=== PATIENT | male | born 1980 | race Caucasian/White ===

== ENCOUNTER 2021-01-13 17:55 | Emergency (ER) | payer OTHER, SELFPAY ==
--- NOTE | ~2021-01-13 | XR_ITS ---
EXAMINATION: XR chest 1V portable INDICATION: Chest pain TECHNIQUE: Portable AP chest at 1917 hours COMPARISON: None available FINDINGS: The lungs are free of acute opacities. There is no pleural effusion or pneumothorax. The ca rdiomediastinal silhouette is normal. The visualized osseous structures are unremarkable. IMPRESSION: 1. No acute cardiopulmonary abnormality. Reviewed, dictated and finalized at location A.
[2021-01-13 17:57] VITALS: BP 147/95; PULSE 94; RESP 19; TEMP 36.8; O2SAT 100
--- NOTE | 2021-01-13 18:07 | ECG_ITS ---
Measurements Intervals [place] Rate: 81 P: 39 SC: 149 QRS: -26 QRSD: 88 T: 31 QT: 338 QTc: 395 Interpretive Statements SINUS RHYTHM DELAYED PRECORDIAL R/S TRANSITION BORDERLINE ECG Electronically Signed On 01-18-2021 15:08:45 CDT by Jovi Egan D.O.
--- NOTE | 2021-01-13 19:00 | ED.CHESTPAIN ---
HPI - Chest Pain General Chief Complaint: Chest Pain Stated Complaint: chest pain a couple days Time Seen by Provider: 01/13/21 18:56 Source: patient and RN notes reviewed Mode of arrival: ambulatory Limitations: no limitations History of Present Illness HPI narrative: Patient a 40-year-old male who presents with midsternal chest pain that radiates to the left that has been present since Monday occurs once to 2 times an hour and has intensified since onset patient denies similar occurrence in the past has not taken anything for his symptoms has not been seen for this complaint patient on arrival is in no distress denying any pain patient denies cardiac history and family does note history of family hypertension patient does not take any medications does not smoke. Pain is a sharp aching pain that lasts for minutes and resolves Related Data Home Medications Medication Instructions Recorded Confirmed multivitamin 1 tablet PO DAILY 10/22/20 10/22/20 Allergies Allergy/AdvReac Type Severity Reaction Status Date / Time No Known Allergies Allergy Verified 06/04/20 16:00 peaches AdvReac Mild swelling-hi Uncoded 06/04/20 16:01 ves Review of Systems Review of Systems: All systems reviewed & are unremarkable except as noted in HPI and below PMFSH Family History Family History Grandparent Diabetes mellitus Carcinoma of colon Father Hypertension Mother Hypertension Family history of malignant neoplasm of breast in first degree relative Other Colon polyp Social History Social History Smoking status: Former smoker Second hand tobacco smoke exposure: No Alcohol intake: current Drinks per week: 5 Gender identity (if verbalized by the patient): Male Exam Narrative: Exam Narrative: GENERAL: Well-appearing, obese, and in no acute distress. HEAD: Normocephalic, atraumatic. EYES: PERRLA and EOMI. ENT: Nares clear, no rhinorrhea or epistaxis. Mucous membranes moist. CHEST: Clear to auscultation. No respiratory distress. No wheezes rales or rhonchi HEART: Regular rate and rhythm. No murmur heard. Normal peripheral pulses. ABDOMEN: Soft, nontender, nondistended EXTREMITIES: Normal range of motion. No edema. SKIN: Warm, dry, no rash. NEURO: No focal deficits. Alert and oriented x3. PSYCH: Normal mood and affect. Course Course Emergency Course: Patient evaluated emergency department no distress will be discharged home with outpatient follow-up Vital Signs Vital signs: Vital Signs Temperature 98.3 F 01/13/21 17:57 Pulse Rate 94 01/13/21 17:57 Respiratory Rate 19 01/13/21 17:57 Blood Pressure 147/95 H 01/13/21 17:57 Pulse Oximetry 100 01/13/21 17:57 Temperature 99.1 F 01/13/21 19:27 Pulse Rate 87 01/13/21 19:27 Respiratory Rate 19 01/13/21 19:27 Blood Pressure 153/95 H 01/13/21 19:27 Pulse Oximetry 100 01/13/21 19:27 MDM - Chest Pain MDM Narrative Medical decision making narrative: Patients EKGs and labs are without significant high risk changes. Cardiac risk factors were reviewed. Patient is felt likely to be low risk for ACS and reasonable for further risk stratification testing as an outpatient. Pain was not sudden or maximal in onset without tearing or ripping. quality. No other signs or symptoms to suggest aortic dissection. A low-risk Wells criteria is noted. PE is felt to be unlikely. No pneumonia or URI symptoms were seen on evaluation today. Patient is felt to b reasonable for continued evaluation as an outpatient. Lab Data Result diagrams: 01/13/21 19:58 01/13/21 19:58 Labs: Lab Results 01/13/21 01/13/21 01/13/21 Range/Units 19:58 19:58 19:58 WBC 8.4 (4.5-10.0) K/mm3 RBC 5.25 (4.6-6.20) M/mm3 Hgb 15.3 (14.0-18.0) g/dL Hct 45.8 (42.0-52.0) % MCV 87.2 (80-100) fl MCH 29.1 (2
[2021-01-13 19:22] VITALS: BP 153/95; PULSE 87; RESP 19; TEMP 37.3; O2SAT 100
[2021-01-13 19:27] VITALS: BP 153/95; PULSE 87; RESP 19; TEMP 37.3; O2SAT 100
--- NOTE | 2021-01-13 19:30 | PC.NURSE ---
Pt presents to ED with complaints of chest pain that onset on Monday and has progressively worsened. Pt states pain is a tight pressure that is midsternum. Pain is ratee 3/10 at this time. Pt denies NVD, fever, chills and sob at this time. Pt noted to be alert and oriented x4. Pt noted with hypertension and does not treat with medication. Pt resting on cart in its lowest position with call button and personal items within reach. present at bedside. call button and personal items within reach. Pt advised to press call button for assistance.
[2021-01-13 20:06] LABS: Basophils Percent Auto 0.5 % (0.2-1.2); Eosinophils Absolute Auto 0.1 K/mm3 (0-0.3); Hematocrit 45.8 % (42.0-52.0); Hemoglobin 15.3 g/dL (14.0-18.0); Immature Granulocyte Absolute 0.04 K/mm3 (0.00-0.031); Immature Granulocyte Percent A 0.5 % (0-0.5); Lymphocytes Absolute Auto 2.37 K/mm3 (0.9-3.2); Lymphocytes Percent Auto 28.2 % (18.3-44.2); Mean Corpuscular HGB Conc 33.4 g/dl (32-36); Mean Corpuscular Hemoglobin 29.1 pg (26-34); Mean Corpuscular Volume 87.2 fl (80-100); Mean Platelet Volume 9.9 fl (7.4-10.4); Monocytes Absolute Auto 0.7 K/mm3 (0.1-0.6); Monocytes Percent Auto 7.7 % (2.6-8.5); Neutrophils Absolute Auto 5.2 K/mm3 (1.3-6.7); Neutrophils Percent Auto 62.1 % (45.5-73.1); Platelet Count Result 242 k/mm3 (150-375); Red Blood Count 5.25 M/mm3 (4.6-6.20); Red Cell Distribution Width 12.6 % (11.5-14.5); White Blood Count 8.4 K/mm3 (4.5-10.0)
[2021-01-13 20:15] LABS: INR 0.9; Prothrombin Time 13.1 Seconds (11.1-14.7)
[2021-01-13 20:16] LABS: Partial Thromboplastin Time 30.3 SECONDS (22.3-36.8)
[2021-01-13 20:17] LABS: Alanine Aminotransferase 23 U/L (4-50); Albumin Level 4.5 g/dL (3.5-5.1); Alkaline Phosphatase 75 U/L (38-126); Anion Gap 4 mmol/L (8-16); Aspartate Amino Transferase 28 U/L (17-59); Bilirubin,Total 0.6 mg/dL (0.2-1.3); Blood Urea Nitrogen 13 mg/dL (9-20); Calcium 9.5 mg/dL (8.4-10.2); Carbon Dioxide 31 mmol/L (22-30); Chloride 106 mmol/L (98-107); Estimated CRCL calculation 119 ml/min; Estimated Glomerular Filt Rate > 60; Glucose 87 mg/dL (75-110); Lipase 29 U/L (23-300); Potassium 3.9 mmol/L (3.4-5.0); Sodium 141 mmol/L (137-145)
[2021-01-13 20:29] LABS: Troponin I < 0.012 ng/mL (0.000-0.034)
[2021-01-13 20:45] VITALS: BP 141/94; PULSE 80; RESP 18; O2SAT 100
== END 2021-01-13 20:48 | disposition home or self-care (01) ==
PROVIDERS: Emergency Medicine Emergency Medical Services; Emergency Provider Emergency Medicine; PCP Family Medicine
DX: R07.9 Chest pain, unspecified (principal); Z87.891 Personal history of nicotine dependence
CPT/HCPCS: 36415; 71045; 80053; 83690; 84484; 85025; 85610; 85730; 93005; 99284

== ENCOUNTER 2021-01-29 12:43 | Outpatient (CLI) | payer OTHER, SELFPAY ==
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
== END 2021-01-29 12:44 | disposition home or self-care (01) ==
LOC: ANHIMG 12:46
PROVIDERS: PCP Family Medicine; Visit Provider Physician Assistant
DX: R20.0 Anesthesia of skin (principal)
CPT/HCPCS: 72040

== ENCOUNTER → 2021-02-12 03:44 | Outpatient (CLI) | payer OTHER, SELFPAY ==
[2021-02-12 18:46] LABS: SARS-CoV-2 RNA PCR Negative
== END ==
PROVIDERS: PCP Family Medicine; Visit Provider Internal Medicine Gastroenterology
DX: Z01.812 Encounter for preprocedural laboratory examination (principal); Z20.822 Contact with and (suspected) exposure to COVID-19
CPT/HCPCS: C9803; U0003; U0005

== ENCOUNTER 2021-04-02 19:25 | Observation (INO) | payer OTHER, SELFPAY ==
--- NOTE | ~2021-04-02 | MR_ITS ---
EXAMINATION: MR brain/brain stem wo/w con DATE: 04/03/2021 13:48 INDICATION: Right facial twitching. Left-sided headache. TECHNIQUE: Magnetic resonance imaging (MRI) of the brain and brainstem was performed without and with 20 mL MultiHance intravenous contrast. Sequences included sagittal and axial T1-weighted FLAIR, axia l T1-weighted FSE, axial diffusion-weighted FS EPI, sagittal T2-weighted FLAIR, axial T2*-weighted GR E, axial T2-weighted FLAIR Propeller, and axial T2-weighted Propeller. Postcontrast sequences include d axial, coronal, and sagittal T1-weighted FSE. Apparent diffusion coefficient (ADC) maps were create d. COMPARISON: Head CT 04/02/2021 FINDINGS: There is no intracranial hemorrhage, acute infarction, or abnormal intracranial mass lesion . The ventricles are normal in size. There is a prominent perivascular space in the right parietal de ep white matter. The orbits are normal. The paranasal sinuses are clear. The mastoid air cells are no rmal. IMPRESSION: 1. Normal brain. Reviewed, dictated and finalized at location A. IMPRESSION: 1. Normal brain.
--- NOTE | ~2021-04-02 | CT_ITS ---
EXAMINATION: CT brain wo con DATE: 04/02/2021 21:37 INDICATION: Headache. TECHNIQUE: Computed tomography (CT) of the head was performed without intravenous contrast. The mA wa s adjusted according to patient size. Iterative reconstruction technique was employed. The dose-lengt h product was 605.33 mGy-cm. COMPARISON: None FINDINGS: There is no intracranial hemorrhage, acute infarction, or abnormal intracranial mass lesion . There is a small focus of low-attenuation in the right parietal deep white matter, which may be nor mal as an isolated finding. The ventricles are normal in size. The paranasal sinuses are clear. The m astoid air cells are normal. The orbits are normal. IMPRESSION: 1. Normal aging brain. Reviewed, dictated and finalized at location A. IMPRESSION: 1. Normal aging brain.
--- NOTE | ~2021-04-02 | XR_ITS ---
EXAMINATION: XR chest 1V portable DATE: 04/02/2021 20:08 INDICATION: Headache. Facial twitching and numbness. TECHNIQUE: A single frontal view of the chest was obtained. COMPARISON: Chest single view 01/13/2021 FINDINGS: The chest demonstrates clear lungs without pneumonia, pleural effusion, or pneumothorax. Th e heart size is normal. IMPRESSION: 1. No acute cardiopulmonary disease. Reviewed, dictated and finalized at location A.
--- NOTE | ~2021-04-02 | XR_ITS ---
EXAMINATION: XR lumbar puncture diagnostic DATE: 04/04/2021 16:01 INDICATION: Multiple sclerosis. TECHNIQUE: The procedure including the risks, benefits, and alternatives was discussed with the patie nt. Risks discussed included spinal headache, cerebrospinal fluid leak, bleeding, and infection. The patient understood the risks and agreed to proceed. A timeout was performed to verify the patient' s name, date of , and procedure to be performed. The skin overlying the L2-L3 level was prepped and draped in usual sterile fashion. Subcutaneous 1% lidocaine was used for local anesthesia. A 20 gauge spinal needle was advanced under fluoroscopic guidance. The needle was removed and the entry s ite was cleaned and dressed. There were no immediate complications. Fluoroscopy exposure time was 0. 1 minutes. The total number of images was 1. FINDINGS: Real-time fluoroscopy demonstrates the needle at the L2-L3 level. The opening pressure was 16 cm water (Normal range is variably defined as 6-20 cm water and up to 25 cm water in obese patient s. Pressure >25 cm water is one of the modified Dandy criteria for idiopathic intracranial hypertensi on). 15 mL of clear, colorless fluid was collected in 4 tubes. IMPRESSION: 1. Successful fluoro-guided lumbar puncture. Reviewed, dictated and finalized at location A.
--- NOTE | ~2021-04-02 | MR_ITS ---
EXAMINATION: MR thoracic spine wo/w con DATE: 04/03/2021 13:48 INDICATION: Multiple sclerosis. Right facial twitching. TECHNIQUE: Magnetic resonance imaging (MRI) of the thoracic spine was performed without and with 20 m L MultiHance intravenous contrast. Sequences included sagittal and axial T2-weighted FSE, sagittal ST IR FSE, and sagittal and axial T1-weighted FSE. Postcontrast sequences included sagittal and axial T1 -weighted FS FSE. COMPARISON: None FINDINGS: Bone alignment is normal. Vertebral body heights are normal. Intervertebral disc heights ar e normal. At T9-T10, there is a left central protrusion with mild central canal stenosis. The facet j oints are unremarkable. No neural foraminal stenosis. The spinal cord signal intensity is normal. IMPRESSION: 1. Normal spinal cord. Reviewed, dictated and finalized at location A. IMPRESSION: 1. Normal spinal cord.
--- NOTE | ~2021-04-02 | MR_ITS ---
EXAMINATION: MR cervical spine wo/w con DATE: 04/03/2021 13:48 INDICATION: Multiple sclerosis. Right facial twitching. TECHNIQUE: Magnetic resonance imaging (MRI) of the cervical spine was performed without and with 20 m L MultiHance intravenous contrast. Sequences included sagittal and axial T2-weighted FSE, sagittal ST IR FSE, and sagittal and axial T1-weighted FSE. Postcontrast sequences included sagittal and axial T1 -weighted FS FSE. COMPARISON: None FINDINGS: Bone alignment is normal. Vertebral body heights are normal. Intervertebral disc heights ar e normal. The spinal cord signal intensity is normal. The following disc levels are specifically disc ussed: C2-C3: The disc does not extend beyond the endplate margin. There is no uncovertebral joint osteoarth ritis. There is no facet joint osteoarthritis. There is no neural foraminal stenosis. There is no regino tral canal stenosis. C3-C4: There is a right central protrusion. There is no uncovertebral joint osteoarthritis. There is mild bilateral facet joint osteoarthritis. There is no neural foraminal stenosis. There is mild centr al canal stenosis. C4-C5: There is a left central extrusion. There is no uncovertebral joint osteoarthritis. There is mi ld bilateral facet joint osteoarthritis. There is no neural foraminal stenosis. There is mild central canal stenosis. C5-C6: The disc does not extend beyond the endplate margin. There is no uncovertebral joint osteoarth ritis. There is no facet joint osteoarthritis. There is no neural foraminal stenosis. There is no regino tral canal stenosis. C6-C7: The disc does not extend beyond the endplate margin. There is no uncovertebral joint osteoarth ritis. There is no facet joint osteoarthritis. There is no neural foraminal stenosis. There is no ergino tral canal stenosis. C7-T1: The disc does not extend beyond the endplate margin. There is no uncovertebral joint osteoarth ritis. There is mild right facet joint osteoarthritis. There is no neural foraminal stenosis. There i s no central canal stenosis. IMPRESSION: 1. Normal spinal cord. 2. Mild cervical spondylosis. Reviewed, dictated and finalized at location A.
[2021-04-02 19:28] VITALS: BP 171/97; PULSE 95; RESP 16; TEMP 36.3; O2SAT 100
[2021-04-02 20:07] LABS: Anion Gap 9 mmol/L (8-16); Blood Urea Nitrogen 17 mg/dL (9-20); Calcium 9.4 mg/dL (8.4-10.2); Carbon Dioxide 26 mmol/L (22-30); Chloride 102 mmol/L (98-107); Estimated CRCL calculation 109 ml/min; Estimated Glomerular Filt Rate > 60; Glucose 107 mg/dL (65-110); Potassium 3.4 mmol/L (3.4-5.0); Sodium 137 mmol/L (137-145)
[2021-04-02 20:08] LABS: Basophils Percent Auto 0.5 % (0.2-1.2); Eosinophils Absolute Auto 0.1 K/mm3 (0-0.3); Hematocrit 41.5 % (42.0-52.0); Hemoglobin 14.3 g/dL (14.0-18.0); Immature Granulocyte Absolute 0.04 K/mm3 (0.00-0.031); Immature Granulocyte Percent A 0.5 % (0-0.5); Lymphocytes Absolute Auto 2.39 K/mm3 (0.9-3.2); Lymphocytes Percent Auto 29.4 % (18.3-44.2); Mean Corpuscular HGB Conc 34.5 g/dl (32-36); Mean Corpuscular Hemoglobin 29.4 pg (26-34); Mean Corpuscular Volume 85.4 fl (80-100); Mean Platelet Volume 10.3 fl (7.4-10.4); Monocytes Absolute Auto 0.7 K/mm3 (0.1-0.6); Monocytes Percent Auto 8.7 % (2.6-8.5); Neutrophils Absolute Auto 4.9 K/mm3 (1.3-6.7); Neutrophils Percent Auto 59.9 % (45.5-73.1); Platelet Count Result 252 k/mm3 (150-375); Red Blood Count 4.86 M/mm3 (4.6-6.20); Red Cell Distribution Width 12.8 % (11.5-14.5); White Blood Count 8.1 K/mm3 (4.5-10.0)
[2021-04-02 20:14] LABS: Prothrombin Time 12.7 Seconds (11.1-14.7)
[2021-04-02 20:15] LABS: Partial Thromboplastin Time 27.7 SECONDS (22.3-36.8)
[2021-04-02 20:18] LABS: Troponin I < 0.012 ng/mL (0.000-0.034)
--- NOTE | 2021-04-02 20:28 | PC.NURSE ---
pt reports was seen earlier this week for same symptoms at [facility]. co headache like a band across forehead, elevated bp, and facial tics. no tics/spasms noted. speech clear. a/o x 4. able to ambulate c steady, even, unassisted gait into room without difficulty. request for medical records signed by pt and faxed to [facility], as pt cannot recall what scans/labs obtained during that visit.
[2021-04-02 20:59] VITALS: BP 134/89; PULSE 87; RESP 20; O2SAT 99
--- NOTE | 2021-04-02 21:24 | ED.NEUROSD ---
HPI - Neuro Symptoms/Deficit General Chief Complaint: Neuro Symptoms/Deficit Stated Complaint: , facial twitching Time Seen by Provider: 04/02/21 20:20 Source: patient and RN notes reviewed Mode of arrival: ambulatory Limitations: no limitations History of Present Illness HPI Narrative: This is a 40 year old male with history of hypertension who presents for evaluation of multiple complaints . Patient states he was taken to an outside hospital on Monday because his blood pressure was elevated and his could not wake him. It sounds like his CT did not show anything acute. He reports he has been having intermittent headaches since that ER visit. He also reports feel like he is spaced out sometimes and he is having difficulty concentrating. He has also noticed twitching of his right lower face constantly for 2 days. He denies focal deficits today but he reports he has been having intermittent left side numbness for several months. Related Data Home Medications Medication Instructions Recorded Confirmed multivitamin 1 tablet PO DAILY 10/22/20 04/02/21 Allergies Allergy/AdvReac Type Severity Reaction Status Date / Time peaches AdvReac Mild swelling-hi Uncoded 04/02/21 23:40 ves Review of Systems Review of Systems: All systems reviewed & are unremarkable except as noted in HPI and below Constitutional: Constitutional: Denies chills and Denies fever(s) Respiratory: Respiratory: Denies cough and Denies dyspnea Gastrointestinal: Gastrointestinal: Reports abdominal pain (chronic ) Neurologic: Reports dizziness, Reports headache(s), Reports focal weakness and Reports numbness PMFSH Past Medical History Medical History (Updated 04/03/21 @ 00:40 by Cindy An MD) Hypertension Mixed hyperlipidemia Family History Family History (Updated 04/02/21 @ 23:46 by Sparkle Abreu RN) Grandparent Diabetes mellitus Carcinoma of colon Father Hypertension Baltazar syndrome Mother Family history of malignant neoplasm of breast in first degree relative Hypertension Other Colon polyp Social History Social History Smoking packs per day: 0.5 Smoking cigarettes per day: 10.0 Years smoked: 17 Smoking pack-years: 8.50 Smoking status: Former smoker Tobacco type: cigarettes Second hand tobacco smoke exposure: No Alcohol intake: current Drinks per week: 5 Substance use: never Gender identity (if verbalized by the patient): Male Spiritual care concerns: No Exam Const: General: no acute distress and alert Orientation/consciousness: patient oriented x3 HENMT: Head: normocephalic and atraumatic Ears: TM's normal bilaterally Mouth: Yes Normal oral and palatal mucosa present, Yes lip normal, Yes oropharynx normal and Yes moist mucous membranes Throat: uvula midline Eyes: Pupils: Equal, round and reactive pupils present EOM: EOMs intact bilaterally Chest: Chest palpation & inspection: normal inspection of the chest Resp: Effort & Inspection: normal respiratory effort and no retractions Auscultation: clear to auscultation bilaterally Cardio: Rate: regular rate Rhythm: regular rhythm Heart sounds: no murmurs GI: GI Palp: Yes Soft to palpation, No Tenderness to palpation present (GI) and No Guarding due to palpation present (GI) Auscultation: normal bowel sounds Skin: General skin exam: normal color Rashes: no rashes Neuro: General: patient oriented x3, moves all extremities and no focal motor deficits Cranial nerves: Yes Nystagmus not present Speech: normal speech Gait exam (Neuro): Normal gait present Other: right lower face twitching Psych: Mental Status: mental status grossly normal Affect: normal affect Course Reevaluation(s) Reevaluation #1: I have discussed with patient labs and CT . He is agreeable to observation over night for Date: 04/02/21 Time: 22:24 Consultations Consul
[2021-04-02] MEDS: diazePAM INJ (*CRX) 10 MG/2 ML SYRINGE 5 MG IV PUSH (21:42)
[2021-04-02 21:47] VITALS: BP 144/98; PULSE 81; RESP 20; O2SAT 96
--- NOTE | 2021-04-02 22:26 | ECG_ITS ---
Measurements Intervals [place] Rate: 76 P: 28 MN: 155 QRS: 8 QRSD: 96 T: 9 QT: 359 QTc: 405 Interpretive Statements SINUS RHYTHM BORDERLINE R WAVE PROGRESSION, ANTERIOR LEADS BORDERLINE ST-T WAVE ABNORMALITY- INFERIOR LEADS BASELINE ARTIFACT- I, III, AVL BORDERLINE ECG Electronically Signed On 04-03-2021 8:03:16 CDT by Jovi Egan D.O.
[2021-04-02 22:48] VITALS: BP 152/100; PULSE 78; RESP 20; TEMP 36.9; O2SAT 99
[2021-04-02 22:49] VITALS: O2SAT 99
[2021-04-02 23:30] VITALS: PULSE 78
--- NOTE | 2021-04-02 23:32 | ADMGEN ---
This patient, Sean Tracey, was admitted to Medical Room 340-01. Patient/family oriented to hospital policies and general routines including ID bracelet, bed and alarms, visiting hours, pain management, procedures, bathroom and other care routines, personal items, smoking policy, room service/diet, and visiting hours. Information on how to activate the Rapid Response Team has been discussed. Patient/Family are encouraged to report perceived risks to care and to ask questions if they do not understand what they are told or what they should do.
[2021-04-02 23:47] VITALS: BMI 36.7
[2021-04-03] VITALS (11 sets, daily range): BP systolic 112–136; BP diastolic 60–89; PULSE 61–86; RESP 16–21; TEMP 35.6–36.7; O2SAT 96–100
--- NOTE | 2021-04-03 01:44 | PM.IMHP ---
H&P: HPI History of Present Illness Date/Time: 04/03/21 01:44 Chief Complaint: Facial to twitching. Narrative: This is a 40-year-old male with past medical history significant for hypertension, he presented to the emergency room due to new daily headache and twitching of the left face. Apparently this has been going on now for the last 2-3 days or so initial episode was on Monday while he was sleep pain witnessed an episode of twitching and when he woke up he was confused so they went to an emergency room at another hospital and was discharged after he was treated over there. Now he comes to our emergency room due to persistence of daily headache and left face twitching. Headache is on the left supraorbital area is present throughout the day sometimes with some blurry vision but no aura no nausea no vomiting no diaphoresis no lacrimation no fevers no rigors no chills no nasal obstruction no earache no sore throat no loss of consciousness no dizziness no lightheadedness. 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 His blood pressure has been uncontrolled with systolic oscillating in the 100 and 50s to 180 and diastolic oscillating in the 80s to 110, states that he snores while asleep but he has never been tested for obstructive sleep apnea. Upon presentation to the emergency room patient had a slightly elevation of blood pressure preliminary workup was essentially nonrevealing. He received 5 mg of Valium which make the twitching stop. Patient has been placed in observation for further evaluation and treatment. Review of Systems Review of Systems: Facial twitching on new daily headache Constitutional: Constitutional: Denies chills, Denies daytime sleepiness, Denies fatigue, Denies fever(s), Denies frequent falls, Reports headache(s), Denies lethargy, Denies night sweats, Reports snoring and Denies weakness Eyes: Eyes: Reports blurry vision ENT: Denies dysphagia, Denies vertigo, Denies dizziness, Denies nasal congestion, Denies nasal discharge, Denies nasal obstruction and Denies odynophagia Cardiovascular: Cardiovascular: Denies chest pain, Denies syncope, Denies irregular heart rhythm, Denies claudication, Denies lightheadedness, Denies radiating jaw, neck or arm pain and Denies palpitations Respiratory: Respiratory: Denies chest congestion, Denies cough, Reports snoring and Denies wheezing Gastrointestinal: Gastrointestinal: Denies abdominal pain, Denies diarrhea, Denies nausea and Denies vomiting Genitourinary: Genitourinary: Reports no additional male genitourinary complaints Musculoskeletal: Musculoskeletal: Reports no additional musculoskeletal complaints Integumentary/Breasts: Skin/Breast: Reports system reviewed and no additional complaints, except as docu Neurologic: Reports confusion, Denies vertigo, Denies dizziness and Reports Other visual disturbances Comments: Left face twitching Psychiatric: Psychiatric: Reports no additional psychiatric complaints Endocrine: Endocrine: Reports no additional endocrine complaints Hematologic/Lymphatic: Hematologic/Lymphatic: Reports no additional hematologic/lymphatic complaints Allergic/Immunologic: Allergic/Immunologic: Reports no additional allergic/immunologic complaints [facility] Past Medical History Medical History (Updated 04/03/21 @ 02:27 by aDllin Hull MD) Hypertension Mixed hyperlipidemia Family History Family History (Updated 04/02/21 @ 23:46 by Sparkle Abreu RN) Grandparent Diabetes mellitus Carcinoma of colon Father Hypertension Baltazar syndrome Mother Family history of malignant neoplasm of breast in first degree relative Hypertension Other Colon polyp Social History Social History Smoking packs per day: 0.5 Smoking cigarettes per day: 10.0 Years smoked: 17 Smoking pack-years: 8.50 Smoking status: Former smoker Tobacco t
[2021-04-03] MEDS: PANTOPRAZOLE 40 MG TABLET PO (08:04)
[2021-04-03] MEDS: METOPROLOL SUCCINATE EXT REL 25 MG TABCR BY MOUTH (08:04)
[2021-04-03] MEDS: MULTIVITAMINS THERAPEUTIC TAB (*BKC) 1 TABLET PO (08:04)
--- NOTE | 2021-04-03 11:02 | WPDNEURCNPN ---
Assessment and Plan Additional Plan considering the age of the patient Marguerite the clinical symptomatology we need to rule out the possibility of focal structural lesion such as tumor but again looking at the age of the patient we also need to rule out the possibility of demyelinating disease initially MRI of the brain cervical thoracic spine will be obtained depending on the results will consider spinal tap I have all the blood tests including KATIE Consult date: 04/03/21 Time Seen: 10:30 HPI: Sean Tracey is a 40 year old male admitted to the hospital for the complaints of twitching of the right side of the face of several days duration initially noted during his sleep also when he woke up. Initially reportedly he was confused so they went to another emergency room from there he was subsequently discharged. 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 recently his blood pressure has been uncontrolled and he does snore while his sleep though he has never been tested for obstructive sleep apnea in the emergency room he was noted to have slight elevation of the blood pressure was given 5 mg of Valium which resulted in stoppage of the twitching his past history is only consistent with the hypertension as mentioned above and along with hyperlipidemia, he has a history of smoking pack years 8.5 and being former smoker drinks about 5 drinks per week and has been taking only omeprazole 40 mg daily and metoprolol 25 mg daily, evaluation up until now includes a routine lab normal and also he has had SARS-CoV-2 Chintan negative on February 12, [address] scan of the head and chest x-ray here are negative Review of Systems Review of Systems: All systems reviewed & are unremarkable except as noted in HPI and below PMFSH Past Medical History Medical History Hypertension Mixed hyperlipidemia Family History Family History Grandparent Diabetes mellitus Carcinoma of colon Father Hypertension Baltazar syndrome Mother Family history of malignant neoplasm of breast in first degree relative Hypertension Other Colon polyp Social History Social History Smoking packs per day: 0.5 Smoking cigarettes per day: 10.0 Years smoked: 17 Smoking pack-years: 8.50 Smoking status: Former smoker Tobacco type: cigarettes Second hand tobacco smoke exposure: No Alcohol intake: current Drinks per week: 5 Substance use: never Gender identity (if verbalized by the patient): Male Spiritual care concerns: No Meds Home Medications and Allergies Home Medications Medication Instructions Recorded Confirmed Type multivitamin 1 tablet PO DAILY 10/22/20 04/02/21 History omeprazole 40 mg capsule,delayed 40 mg PO DAILY #30 cap 01/15/21 04/02/21 Rx release metoprolol succinate 25 mg See Rx Instructions .ROUTE 03/16/21 04/02/21 Rx tablet,extended release 24 hr .COMPLEX #30 tablet Allergies Allergy/AdvReac Type Severity Reaction Status Date / Time peaches AdvReac Mild swelling-hi Uncoded 04/02/21 23:40 ves Vital Signs Vital Signs - 24 hr 04/02/21 19:28 04/02/21 20:59 04/02/21 21:47 Temperature 36.3 C L Pulse Rate 95 87 81 Respiratory Rate 16 20 20 Blood Pressure 171/97 H 134/89 144/98 H Pulse Oximetry 100 99 96 04/02/21 22:48 04/02/21 22:49 04/02/21 23:30 Temperature 36.9 C Pulse Rate 78 78 Respiratory Rate 20 Blood Pressure 152/100 H Pulse Oximetry 99 99 04/03/21 00:00 04/03/21 00:08 04/03/21 04:00 Temperature 36.1 C L Pulse Rate 81 76 61 Respiratory Rate 21 H Blood
--- NOTE | 2021-04-03 12:23 | PM.IMPN ---
Progress Note: A&P Assessment and Plan (1) Hemifacial spasm of right side of face: Code(s): G51.31 - Clonic hemifacial spasm, right Status: Acute Assessment and Plan: -Patient have brain cervical and thoracic MRIs. Workup for multiple sclerosis or demyelinating syndromes, ALS. -consulting neurology Dr. Billingsley, I reviewed neurology notes -will follow KATIE -patient may need LP, will discuss with neurology after MRI results -EEG was also ordered -can continue multivitamin, electrolytes within normal limits (2) Uncontrolled hypertension: Code(s): I10 - Essential (primary) hypertension Status: Acute Assessment and Plan: -Continue home medication metoprolol, will consider adding secondary agent if needed (3) Frequent headaches: Code(s): R51.9 - Headache, unspecified Status: Acute Assessment and Plan: -Tylenol as needed -Zofran for nausea Additional Plan Diet: Heart healthy DVT prophylaxis: SCDs, low risk GI prophylaxis: Protonix Code status: Full code Disposition: Observation, pending neurological workup Time Spent With Patient Time with patient: 15 - 25 minutes Subjective Date/time seen: 04/03/21 12:23 patient examined. He still has a right face twitching which is very prominent. Patient has MRI and EEG plan for today. Electrolytes were within normal limits. I am concerned this facial fasciculations may be ALS or multiple sclerosis. We are consulting Neurology for further evaluation. Patient denies fever, chills, nausea, vomiting, diarrhea, chest pain, abdominal pain. He has no family history of neurological problems like this. He has never had any episodes like this or any other abnormal fasciculations throughout his body. He is not having any problems swallowing or eating. No problems with speech. No problems with bladder function. No problems ambulating. Review of Systems Review of Systems: All systems reviewed & are unremarkable except as noted in HPI and below Exam Narrative: - GENERAL: Well-nourished. Pleasant male lying comfortably in bed. - EYES: EOMI. Anicteric. PERRL - HENT: Moist mucous membranes. No scleral icterus. Facial fasciculations right-sided face lower aspect of the cheek around the lateral side of the lips. - LUNGS: Clear to auscultation bilaterally, no wheezing, rhonchi, or rales. - CARDIOVASCULAR: Regular rate and rhythm. No murmur. No JVD. - ABDOMEN: Soft, non-tender and non-distended. No palpable masses. - EXTREMITIES: No edema. Peripheral pulses 2+. Non-tender. - NEUROLOGIC: No focal neurological deficits. CN II-XII grossly intact. Muscle strength 5 in 5 throughout upper and lower extremities. - PSYCHIATRIC: Awake, Alert and oriented x 3. Appropriate mood and affect. - SKIN: No rashes or lesions. Warm. - LYMPH: No cervical lymphadenopathy. Objective Data Vital Signs Vital Signs: Vital Signs - 24 hr 04/02/21 19:28 04/02/21 20:59 04/02/21 21:47 Temperature 36.3 C L Pulse Rate 95 87 81 Respiratory Rate 16 20 20 Blood Pressure 171/97 H 134/89 144/98 H Pulse Oximetry 100 99 96 04/02/21 22:48 04/02/21 22:49 04/02/21 23:30 Temperature 36.9 C Pulse Rate 78 78 Respiratory Rate 20 Blood Pressure 152/100 H Pulse Oximetry 99 99 04/03/21 00:00 04/03/21 00:08 04/03/21 04:00 Temperature 36.1 C L Pulse Rate 81 76 61 Respiratory Rate 21 H Blood Pressure 112/89 Pulse Oximetry 100 04/03/21 06:00 04/03/21 08:00 04/03/21 08:04 Temperature 35.6 C L Pulse Rate 69 86 69 Respiratory Rate 21 H Blood Pressure 136/84 Pulse Oximetry 100 04/03/21 11:15 Temperature Pulse Rate Respiratory Rate Blood Pressure Pulse Oximetry 100 Intake/Output Intake/Output: Intake & Output 03/31/21 04/01/21 04/02/21 04/03/21 23:59 23:59 23:59 23:59 Intake Total 440 Output Total 500 Balance -60 Meds/Results Medications: Active Medications Generic Name Dose Route Start Last Admin
[2021-04-03] MEDS: ACETAMINOPHEN 325 MG TABLET 650 MG PO (13:07)
[2021-04-04] VITALS (12 sets, daily range): BP systolic 124–141; BP diastolic 80–91; PULSE 50–87; RESP 16–20; TEMP 36–37.2; O2SAT 94–100
[2021-04-04] MEDS: PANTOPRAZOLE 40 MG TABLET PO (08:08)
[2021-04-04] MEDS: METOPROLOL SUCCINATE EXT REL 25 MG TABCR BY MOUTH (08:08)
[2021-04-04] MEDS: MULTIVITAMINS THERAPEUTIC TAB (*BKC) 1 TABLET PO (08:08)
--- NOTE | 2021-04-04 12:36 | PM.IMPN ---
Progress Note: A&P Assessment and Plan (1) Hemifacial spasm of right side of face: Code(s): G51.31 - Clonic hemifacial spasm, right Status: Acute Assessment and Plan: - persistent rupali facial spasms fasciculations in right-sided face. - MRI workup negative - Will do lumbar puncture with MS workup - consulted neurology Dr. Billingsley - will start Valium 5 mg t.i.d. p.r.n. (2) Essential hypertension: Code(s): I10 - Essential (primary) hypertension Status: Acute Assessment and Plan: - blood pressure stable, systolic blood pressure 130s - continue home metoprolol (3) Frequent headaches: Code(s): R51.9 - Headache, unspecified Status: Acute Assessment and Plan: - continue Tylenol for headaches, will give Toradol x1 Additional Plan Diet: Regular DVT prophylaxis: No blood thinners for open, low risk GI prophylaxis: Protonix Code status: Full code Disposition: Home Time Spent With Patient Time with patient: 25 - 35 minutes Subjective Date/time seen: 04/04/21 12:36 Patient seen and examined. has no new complaints today. He still has the right facial fasciculations. MRI workup was negative. Will plan LP. p.r.n. Valium for muscle spasm. I discussed case with neurologist. Patient updated. Patient denies fever, chills, nausea, vomiting, diarrhea, chest pain, Abdominal pain, vision changes, dysphagia, dysarthria. Review of Systems Review of Systems: All systems reviewed & are unremarkable except as noted in HPI and below Exam Narrative: - GENERAL: Well-nourished. Pleasant male lying comfortably in bed. - EYES: EOMI. Anicteric. PERRL - HENT: Moist mucous membranes. No scleral icterus. Facial fasciculations right-sided face lower aspect of the cheek around the lateral side of the lips , persistent fasciculations. - LUNGS: Clear to auscultation bilaterally, no wheezing, rhonchi, or rales. - CARDIOVASCULAR: Regular rate and rhythm. No murmur. No JVD. - ABDOMEN: Soft, non-tender and non-distended. No palpable masses. - EXTREMITIES: No edema. Peripheral pulses 2+. Non-tender. - NEUROLOGIC: No focal neurological deficits. CN II-XII grossly intact. Muscle strength 5 in 5 throughout upper and lower extremities. - PSYCHIATRIC: Awake, Alert and oriented x 3. Appropriate mood and affect. - SKIN: No rashes or lesions. Warm. - LYMPH: No cervical lymphadenopathy. Objective Data Vital Signs Vital Signs: Vital Signs - 24 hr 04/03/21 13:59 04/03/21 16:00 04/03/21 20:00 Temperature 36.7 C Pulse Rate 81 77 71 Respiratory Rate 20 Blood Pressure 128/86 Pulse Oximetry 96 04/03/21 20:59 04/04/21 00:00 04/04/21 04:11 Temperature 35.9 C L Pulse Rate 66 66 50 L Respiratory Rate 16 Blood Pressure 114/60 Pulse Oximetry 98 04/04/21 05:23 04/04/21 08:00 04/04/21 08:08 Temperature 36.0 C L Pulse Rate 71 87 68 Respiratory Rate 16 Blood Pressure 133/81 Pulse Oximetry 100 04/04/21 12:00 Temperature Pulse Rate 80 Respiratory Rate Blood Pressure Pulse Oximetry Intake/Output Intake/Output: Intake & Output 04/01/21 04/02/21 04/03/21 04/04/21 23:59 23:59 23:59 23:59 Intake Total 1660 690 Output Total 1000 1000 Balance 660 -310 Meds/Results Medications: Active Medications Generic Name Dose Route Start Last Admin Trade Name Freq PRN Reason Stop Dose Admin Acetaminophen 650 mg 04/03/21 12:32 04/03/21 13:07 Acetaminophen 325 Mg Tablet PO 650 mg Q6H PRN Administration Mild Pain (1-3) or Fever Diazepam 5 mg 04/04/21 12:27 Diazepam (*Crx) 5 Mg Tablet PO TID PRN Spasms Metoprolol Succinate 25 mg 04/03/21 09:00 04/04/21 08:08 Metoprolol Succinate Ext Rel 25 Mg Tabcr BY MOUTH 25 mg DAILY RORO Administration Multivitamins Therapeutic 1 tablet 04/03/21 09:00 04/04/21 08:08 Multivitamins Therapeutic Tab (*Bkc) PO 1 tablet DAILY RORO Administration Ondansetron HCl 4 mg
[2021-04-04] MEDS: KETOROLAC 30 MG/ML VIAL (*BKC) IV PUSH (13:12)
[2021-04-04 13:49] LABS: INR 0.9; Partial Thromboplastin Time 27.2 SECONDS (22.3-36.8); Prothrombin Time 12.5 Seconds (11.1-14.7)
[2021-04-04 16:11] LABS: Glucose CSF 50 mg/dL (40-70); Total Protein CSF 90 mg/dL (12-60)
[2021-04-04 17:12] LABS: Appearance CSF Clear (Clear); CSF source CSF; Color CSF Colorless (Colorless); Nucleated Cell CSF 2 /uL (0-5); Red Blood Cell CSF 2 (0-2)
[2021-04-04 17:37] LABS: Lymphocytes CSF 50 % (40-80)
[2021-04-04 17:39] LABS: Neutrophils CSF 50 % (0-6)
[2021-04-04 17:51] LABS: Anion Gap 9 mmol/L (8-16); Blood Urea Nitrogen 22 mg/dL (9-20); Calcium 9.8 mg/dL (8.4-10.2); Carbon Dioxide 27 mmol/L (22-30); Chloride 103 mmol/L (98-107); Estimated CRCL calculation 94 ml/min; Estimated Glomerular Filt Rate > 60; Glucose 99 mg/dL (65-110); Magnesium 2.2 mg/dL (1.6-2.3); Potassium 4.2 mmol/L (3.4-5.0); Sodium 139 mmol/L (137-145)
--- NOTE | 2021-04-04 18:48 | PM.DS ---
DS: Admitting Diagnosis Admitting Diagnosis Right face fasciculations DS: Discharge Diagnosis Discharge Diagnosis (1) Hemifacial spasm of right side of face: Code(s): G51.31 - Clonic hemifacial spasm, right Status: Acute Assessment and Plan: - MS workup: LP results pending, MRI of brain and spine negative - electrolytes normal, no caffeine abuse, unclear etiology - idiopathic muscle spasms - continue Valium 5 mg t.i.d. p.r.n. (2) Essential hypertension: Code(s): I10 - Essential (primary) hypertension Status: Acute Assessment and Plan: - continue home metoprolol, follow-up with PCP (3) Frequent headaches: Code(s): R51.9 - Headache, unspecified Status: Acute Assessment and Plan: - Tylenol or ibuprofen for headaches p.r.n. DS: Summary Hospital Course Reason for hospitalization: right face fasciculations Hospital Course: Patient is a 40-year-old male with past medical history of hypertension who presents to ED with complaints of headaches and right face twitching. His episodes of twitching appears to get worse with stress such as during his work shift. He denies caffeine abuse, no history of muscle spasms before. He has no family history of neurological conditions. He denies other nonspecific neurological symptoms. He denies urinary incontinence bladder incontinence. No problems with gait. He denies alcohol abuse. No etiologies have been identified for why he has is face twitching. Neurology was consulted and we completed multiple sclerosis workup. MRIs of brain and spine have been negative. Lumbar puncture has been done with results pending. Electrolytes within normal limits. His symptoms seem to improve with Valium, will give 5 mg Valium t.i.d. p.r.n. for muscle twitching. At this point it appears to be idiopathic muscular fasciculations. Patient may follow-up with Dr. Jose Cruz ng for lumbar puncture results. patient also follow-up with his PCP for blood pressure, appears to be stable on his metoprolol with systolic in the 130s. blood pressure was elevated at 1st however it appears to have settled out throughout his admission. He may have a component of white coat hypertension syndrome. Only new medication is Valium, Rx given. Patient will follow-up with PCP and Neurology. Patient's vitals stable, labs stable, patient is stable for discharge. Patient understands and agrees with plan. Status at Discharge Cognitive/behavioral status at discharge: baseline Functional status at discharge: independent ambulation Overall status at discharge: patient is back to baseline Time Spent with Patient Time attestation: Total time spent providing and/or coordinating discharge services:35 Time spent: Greater than 30 minutes Exam Narrative: - GENERAL: Well-nourished. Pleasant male lying comfortably in bed. - EYES: EOMI. Anicteric. PERRL - HENT: Moist mucous membranes. No scleral icterus. Facial fasciculations right-sided face lower aspect of the cheek around the lateral side of the lips , fasciculations appear to have improved on my final assessment. - LUNGS: Clear to auscultation bilaterally, no wheezing, rhonchi, or rales. - CARDIOVASCULAR: Regular rate and rhythm. No murmur. No JVD. - ABDOMEN: Soft, non-tender and non-distended. No palpable masses. - EXTREMITIES: No edema. Peripheral pulses 2+. Non-tender. - NEUROLOGIC: No focal neurological deficits. CN II-XII grossly intact. Muscle strength 5 in 5 throughout upper and lower extremities. - PSYCHIATRIC: Awake, Alert and oriented x 3. Appropriate mood and affect. - SKIN: No rashes or lesions. Warm. - LYMPH: No cervical lymphadenopathy. DS: Data Data Completed and Pending Pending studies at discharge: Pending at discharge 04/04/21 12:30 Cytology [PTH] Routine Labs on day of discharge: Labs from last 24 hours 04/04/21 04/04/21 04/04/21 16:54 16:54 16:54 PT INR APTT Sodium 139 [place]
[2021-04-13 11:36] LABS: Albumin, CSF 44.8 mg/dL (8.0-42.0); Albumin, Serum 4.1 g/dL (3.5-5.2); IgG Index, CSF 0.41 (<0.66); IgG, CSF 4.7 mg/dL (0.8-7.7); Immunoglobulin G, Serum 1050 mg/dL (600-1640); Myelin Basic Protein, CSF <2.0 mcg/L (2.0-4.0); Synthesis Rate IgG, CSF -5.6 mg/24 h (-9.9-3.3)
== END 2021-04-04 19:28 | disposition home or self-care (01) ==
LOC: ANHED 20:24 → ANH3MED 04-03 00:40
PROVIDERS: Emergency Medicine; Psychiatry & Neurology Neurology; Admitting Provider Internal Medicine; Emergency Provider General Practice; PCP Family Medicine; Visit Provider Student in an Organized Health Care Education/Training Program
DX: G51.31 Clonic hemifacial spasm, right (principal); I10 Essential (primary) hypertension; R51.9 Headache, unspecified; E78.2 Mixed hyperlipidemia; Z87.891 Personal history of nicotine dependence; E66.9 Obesity, unspecified; Z68.36 Body mass index [BMI] 36.0-36.9, adult
CPT/HCPCS: 36415; 62328; 70450; 70553; 71045; 72156; 72157; 80048; 82040; 82042; 82525; 82607; 82746; 82784; 82945; 83735; 83873; 83916; 84157; 84443; 84484; 85025; 85610; 85730; 86038; 86617; 88108; 89051; 93005; 96374; 99285; A9270; A9577; G0378; J1885; J3360

== ENCOUNTER 2021-07-15 08:40 | Outpatient (CLI) | payer OTHER, SELFPAY ==
--- NOTE | 2021-07-15 11:00 | NEURO_ITS ---
Impression: # Complains of numbness and twitching of muscles. # Left ulnar neuropathy across the elbow. # Normal nerve conduction study in upper and lower extremities. # Normal needle/EMG exam; No myotonia, fibrillations or neurogenic changes,to consider the possibility of motor neurone disease Nerve Conduction Studies Anti Sensory Summary Table Stim Site NR Peak (ms) P-T Amp (?V) Site1 Site2 Delta-P (ms) Dist (cm) Bhanu (m/s) Left Median Anti Sensory (2-3nd Digit) Wrist 2.7 86.5 Wrist 2-3nd Digit 2.7 14.0 52 Wrist 2.7 75.8 Wrist 2-3nd Digit 2.7 14.0 52 Right Median Anti Sensory (2-3nd Digit) Wrist 3.1 42.6 Wrist 2-3nd Digit 3.1 14.0 45 Wrist 2.9 50.3 Wrist 2-3nd Digit 3.1 14.0 45 Left Radial Anti Sensory (Base 1st Digit) Wrist 2.3 10.3 Wrist Base 1st Digit 2.3 0.0 Right Radial Anti Sensory (Base 1st Digit) Wrist 1.8 18.0 Wrist Base 1st Digit 1.8 0.0 Left Sup Fibular Anti Sensory (Ant Lat Mall) 14 cm 3.2 14.4 14 cm Ant Lat Mall 3.2 16.0 50 Right Sup Fibular Anti Sensory (Ant Lat Mall) 14 cm 3.9 11.5 14 cm Ant Lat Mall 3.9 16.0 41 Left Sural Anti Sensory (Lat Mall) Calf 3.6 4.8 Calf Lat Mall 3.6 16.0 44 Right Sural Anti Sensory (Lat Mall) Calf 3.7 9.8 Calf Lat Mall 3.7 16.0 43 Left Ulnar Anti Sensory (5th Digit) Wrist 2.5 39.6 Wrist 5th Digit 2.5 14.0 56 Right Ulnar Anti Sensory (5th Digit) Wrist 2.3 58.0 Wrist 5th Digit 2.3 14.0 61 Motor Summary Table Stim Site NR Onset (ms) O-P Amp (mV) Site1 Site2 Delta-0 (ms) Dist (cm) Bhanu (m/s) Left Median Motor (Abd Poll Brev) Wrist 3.2 3.5 Elbow Wrist 4.5 27.0 60 Elbow 7.7 1.7 Right Median Motor (Abd Poll Brev) Wrist 3.4 3.7 Elbow Wrist 4.6 28.0 61 Elbow 8.0 3.1 Left Peroneal Motor (Vastus Med) Ankle 5.1 2.8 Popit Ankle 7.0 37.0 53 Popit 12.1 2.0 Right Peroneal Motor (Vastus Med) Ankle 5.0 4.3 Popit Ankle 6.8 36.0 53 Popit 11.8 4.4 Left Tibial Motor (Abd Laird Brev) Ankle 5.4 8.8 Knee Ankle 7.6 37.0 49 Knee 13.0 8.9 Right Tibial Motor (Abd Laird Brev) Ankle 5.1 4.6 Knee Ankle 8.3 39.0 47 Knee 13.4 2.5 Left Ulnar Motor (Abd Dig Minimi) Wrist 2.2 6.5 A Elbow Wrist 5.6 28.0 50 A Elbow 7.8 5.4 B Elbow Wrist 3.8 24.0 63 B Elbow 6.0 5.5 Right Ulnar Motor (Abd Dig Minimi) Wrist 2.7 7.4 A Elbow Wrist 4.7 29.0 62 A Elbow 7.4 6.5 F Wave Studies NR F-Lat (ms) L-R F-Lat (ms) Left Median (Mrkrs) (Abd Poll Brev) 25.78 1.19 Right Median (Mrkrs) (Abd Poll Brev) 26.97 1.19 Left Peroneal (Mrkrs) (EDB) 49.14 0.36 Right Peroneal (Mrkrs) (EDB) 48.78 0.36 Left Tibial (Mrkrs) (Abd Hallucis) 49.81 0.39 Right Tibial (Mrkrs) (Abd Hallucis) 49.42 0.39 Left Ulnar (Mrkrs) (Abd Dig Min) 26.55 0.61 Right Ulnar (Mrkrs) (Abd Dig Min) 25.94 0.61 EMG Side Muscle Nerve Root Ins Act Fibs Amp Dur Recrt Comment Right 1stDorInt Ulnar C8-T1 Nml Nml Nml Nml Nml Right Ext Indicis Radial (Post Int) C7-8 Nml Nml Nml Nml Nml Right Ext Digitorum Radial (Post Int) C7-8 Nml Nml Nml Nml Nml Right BrachioRad Radial C5-6 Nml Nml Nml Nml Nml Right PronatorTeres Median C6-7 Nml Nml Nml Nml Nml Right Abd Po
== END 2021-07-15 08:41 | disposition home or self-care (01) ==
PROVIDERS: PCP Family Medicine; Visit Provider Psychiatry & Neurology Neurology
DX: G56.22 Lesion of ulnar nerve, left upper limb (principal); R20.0 Anesthesia of skin
CPT/HCPCS: 95886; 95913

== ENCOUNTER 2022-04-30 08:17 | Observation (INO) | payer OTHER, SELFPAY ==
[2022-04-30] VITALS (25 sets, daily range): BP systolic 111–159; BP diastolic 62–96; PULSE 54–100; RESP 13–24; TEMP 36.5–36.8; O2SAT 96–100
--- NOTE | ~2022-04-30 | CT_ITS ---
EXAMINATION: CTA BRAIN/CAROTID DATE: 04/30/2022 09:18 INDICATION: Right-sided weakness TECHNIQUE: Computed tomographic angiography (CTA) of the head and neck was performed with 100 mL Omni paque-350 intravenous contrast. Multiplanar reconstructions and maximum intensity projection 3D-recon structions of the carotid arteries and of the intracranial arteries were created by the technologist on a separate workstation. Precontrast CT of the head was also obtained. Automated exposure control and iterative reconstruction technique were employed.The dose-length product was 1696.24 mGy-cm. COMPARISON: Brain MR dated FINDINGS: Carotid arteries: Vascular is normal in caliber with no dissection. There is no evident atherosclerotic plaque with 0% stenosis of the right and left carotid bulbs relative to normal distal artery lumen diameter (NASCET criteria). Visualized cervical soft tissues are unremarkable. Visualized airway and apices of lungs a re clear. Head: Again seen is a prominent perivascular space in the peritrigonal right triple white matter. No acute intracranial hemorrhage, acute infarction or abnormal extra axial fluid collection. Ventricles are no rmal and symmetric. No mass/mass effect. Right cerebellar tonsil which lies 4 mm below level of the f oramen magnum. The orbits, paranasal sinuses and mastoid air cells are normal. Intracranial arteries There is no hemodynamically significant stenosis in the vertebral, basilar and internal carotid arter ies. Vertebral arteries are codominant. There are no aneurysms identified. Both A1 and P1 segments a re patent. Cerebral arterial arborization appears symmetric. No abnormally enhancing brain lesions. IMPRESSION: 1. No evident atherosclerotic plaque with 0% stenosis of the right and left carotid bulbs relative to normal distal artery lumen diameter (NASCET criteria). 2. Normal cerebral CT angiogram with no evident occlusion, hemodynamically significant stenosis or an eurysm. 3. No acute intracranial process. Reviewed, dictated and finalized at location A. IMPRESSION: 1. No evident atherosclerotic plaque with 0% stenosis of the right and left car otid bulbs relative to normal distal artery lumen diameter (NASCET criteria). 2. Normal cerebral CT angiogram with no evident occlusion, hemodynamically sign ificant stenosis or aneurysm. 3. No acute intracranial process.
--- NOTE | ~2022-04-30 | MR_ITS ---
EXAMINATION: MR brain/brain stem wo/w con DATE: 04/30/2022 13:40 INDICATION: Right hemiparesis. TECHNIQUE: Magnetic resonance imaging (MRI) of the brain and brainstem was performed without and with 20 mL MultiHance intravenous contrast. COMPARISON: Brain MRI 04/03/2021, head CT 04/30/2022 FINDINGS: There is no intracranial hemorrhage, acute infarction, or abnormal intracranial mass lesion . The ventricles are normal in size. The mastoid air cells are normal. The paranasal sinuses are danitza r. The orbits are normal. IMPRESSION: 1. Normal brain. Reviewed, dictated and finalized at location A. IMPRESSION: 1. Normal brain.
--- NOTE | ~2022-04-30 | XR_ITS ---
EXAMINATION: XR chest 1V portable DATE: 04/30/2022 08:40 INDICATION: Right-sided weakness. Dull middle chest pain TECHNIQUE: frontal view of the chest was obtained. COMPARISON: Chest radiograph dated 04/02/2021 FINDINGS: The lungs are clear with no focal airspace opacities, pulmonary edema, pleural effusion or pneumothor ax. The cardiomediastinal silhouette is normal. Visualized bones and soft tissues are unremarkable. IMPRESSION: 1. No acute cardiopulmonary disease. Reviewed, dictated and finalized at location A.
--- NOTE | 2022-04-30 08:20 | ECG_ITS ---
Measurements Intervals [place] Rate: 92 P: 57 [place]: 145 QRS: 21 QRSD: 107 T: 20 QT: 340 QTc: 422 Interpretive Statements SINUS RHYTHM DELAYED PRECORDIAL R/S TRANSITION BORDERLINE ST-T WAVE ABNORMALITY- INFERIOR LEADS BASELINE ARTIFACT- I, II, III, AVR, AVL, AVF BORDERLINE ECG COMPARED TO ECG 04/02/2021 22:43:18 NO SIGNIFICANT CHANGES Electronically Signed On 04-30-2022 8:34:33 CDT by Jovi Egan D.O.
--- NOTE | 2022-04-30 08:30 | PC.NURSE ---
Dr. Carlson at bedside to assess pt
--- NOTE | 2022-04-30 08:38 | ED.NEUROSD ---
HPI - Neuro Symptoms/Deficit General Chief Complaint: Neuro Symptoms/Deficit Stated Complaint: int. numbness to right side since last night Time Seen by Provider: 04/30/22 08:26 Source: RN notes reviewed History of Present Illness HPI Narrative: Patient presents emergency department from home for multiple complaints. Patient's main complaint is right-sided numbness he states that starting at 1930 last night he has been having intermittent numbness in his right arm and right leg he states that the episodes will last for approximately 10 to 15 minutes and with these episodes of numbness he also has weakness in his arm and his leg where he has minimal movement in the arm and leg he states that after this time will resolve and he had approximately 3 episodes of this. States that following his initial episode last night he developed a headache over the right side of his head and went behind his right eye patient also states that last night he developed some midsternal chest pain that was described as a pressure that is now resolved. States the pain did not radiate. Patient does state that with his episode of numbness last night his significant other had noticed some slurred speech he states he had similar episodes approximately a year ago for which she was admitted and is followed by Dr. Billingsley at that time he was diagnosed with a pinched nerve in his neck but only been having numbness in his arm at that time he states he does follow with Dr. Billingsley he denies any fevers or chills vision changes shortness of breath abdominal pain or any other symptoms patient denies any chest pain or numbness at this time Related Data Home Medications Medication Instructions Recorded Confirmed multivitamin (Daily Multi-Vitamin 1 tablet PO DAILY 10/22/20 04/01/22 tablet) Allergies Allergy/AdvReac Type Severity Reaction Status Date / Time peach Allergy Severe Swelling/HIVES/SEE Verified 04/01/22 10:55 COMMENT Review of Systems Review of Systems: Gen.: Denies fevers or chills Eyes: Denies eye pain or visual change ENT: Denies congestion Respiratory: Denies shortness of breath or cough CV: Reports chest pain GI: Denies abdominal pain nausea, emesis or diarrhea denies burning, urgency, frequency or hematuria Musculoskeletal: Denies back pain or muscle pain Neuro: See HPI Skin: Denies rash Except as documented, all other systems reviewed and negative PMFSH Past Medical History Medical History Hypertension Mixed hyperlipidemia Family History Family History Grandparent Diabetes mellitus Carcinoma of colon Father Hypertension Baltazar syndrome Mother Family history of malignant neoplasm of breast in first degree relative Hypertension Other Colon polyp Social History Social History Social History: former smoker Smoking packs per day: 0.5 Smoking cigarettes per day: 10.0 Years smoked: 17 Smoking pack-years: 8.50 Smoking status: Former smoker Tobacco type: cigarettes Second hand tobacco smoke exposure: No Alcohol intake: current Drinks per week: 5 Substance use: never Gender identity (if verbalized by the patient): Male Spiritual care concerns: No Exam Narrative: APPEARANCE: No acute distress, nontoxic, resting in bed HEENT: Normocephalic, atraumatic, OMM, TMs clear bilaterally EYES: PERRL, EOMI RESPIRATORY: No respiratory distress, clear to auscultation bilaterally with no rhonchi wheezing or rales CARDIOVASCULAR: RRR s murmur ABDOMINAL: Soft, nontender, nondistended MUSCULOSKELETAL: Moves all extremities. No clubbing, cyanosis or edema. NEURO: A and O ?3, following commands, speech normal, mild right facial droop with attempts to smile only,muscle strength 5 out of 5 bilateral upper and lower extremities SKIN:: Warm, dry. Normal
[2022-04-30 08:48] LABS: Basophils Absolute Auto 0.1 K/mm3 (0.0-0.1); Basophils Percent Auto 0.6 % (0.2-1.2); Eosinophils Absolute Auto 0.1 K/mm3 (0-0.3); Eosinophils Percent Auto 0.8 % (0-4.4); Hemoglobin 13.7 g/dL (14.0-18.0); Immature Granulocyte Absolute 0.05 K/mm3 (0.00-0.031); Immature Granulocyte Percent A 0.5 % (0-0.5); Lymphocytes Absolute Auto 2.73 K/mm3 (0.9-3.2); Lymphocytes Percent Auto 28.4 % (18.3-44.2); Mean Corpuscular HGB Conc 33.4 g/dl (32-36); Mean Corpuscular Hemoglobin 29.1 pg (26-34); Mean Platelet Volume 10.6 fl (7.4-10.4); Monocytes Absolute Auto 0.7 K/mm3 (0.1-0.6); Monocytes Percent Auto 6.9 % (2.6-8.5); Neutrophils Percent Auto 62.8 % (45.5-73.1); Platelet Count Result 263 k/mm3 (150-375); Red Blood Count 4.71 M/mm3 (4.6-6.20); Red Cell Distribution Width 13.2 % (11.5-14.5); White Blood Count 9.6 K/mm3 (4.5-10.0)
[2022-04-30 08:50] LABS: INR 1.2; Prothrombin Time 14.3 Seconds (11.1-14.7)
[2022-04-30 08:52] LABS: Partial Thromboplastin Time 28.5 SECONDS (22.3-36.8)
[2022-04-30 09:00] LABS: Alanine Aminotransferase 32 U/L (6-50); Albumin Level 4.5 g/dL (3.5-5.1); Alkaline Phosphatase 93 U/L (38-126); Anion Gap 11 mmol/L (8-16); Aspartate Amino Transferase 32 U/L (17-59); Bilirubin,Total 0.4 mg/dL (0.2-1.3); Blood Urea Nitrogen 18 mg/dL (9-20); Calcium 9.1 mg/dL (8.4-10.2); Carbon Dioxide 25 mmol/L (22-30); Chloride 105 mmol/L (98-107); Estimated CRCL calculation 105 ml/min; Estimated Glomerular Filt Rate > 60; Glucose 88 mg/dL (65-110); Potassium 3.6 mmol/L (3.4-5.0); Sodium 141 mmol/L (137-145)
[2022-04-30 09:06] LABS: Magnesium 2.2 mg/dL (1.6-2.3)
[2022-04-30 09:09] LABS: Troponin I < 0.012 ng/mL (0.000-0.034)
--- NOTE | 2022-04-30 09:22 | PC.NURSE ---
Patient off unit to CT.
[2022-04-30 09:30] LABS: SARS-CoV-2 RNA PCR Negative
[2022-04-30] MEDS: ASPIRIN 81 MG CHEWABLE TABLET 324 MG PO (10:37)
--- NOTE | 2022-04-30 11:01 | PC.NURSE ---
Patient report given to ALESHIA Ortiz. All questions answered and care of patient transferred.
--- NOTE | 2022-04-30 11:41 | ADMGEN ---
This patient, Sean Tracey, was admitted to IMU Room 212-01 on 04/30/22 at 1130. Patient/family oriented to hospital policies and general routines including ID bracelet, bed and alarms, visiting hours, pain management, procedures, bathroom and other care routines, personal items, smoking policy, room service/diet, and visiting hours. Information on how to activate the Rapid Response Team has been discussed. Patient/Family are encouraged to report perceived risks to care and to ask questions if they do not understand what they are told or what they should do.
--- NOTE | 2022-04-30 13:00 | PM.IMHP ---
H&P: HPI History of Present Illness Date/Time: 04/30/22 13:00 Chief Complaint: Headache, right-sided weakness. Narrative: This is a 41-year-old male with hypertension, hyperlipidemia, GERD, and remote history of peptic ulcers who presented to the emergency department for evaluation of right-sided numbness and a headache. He works overnight at [employer] and while driving to work at about 19:30 last evening he noticed that the right side of his body seemed to be a bit tingly. That passed and he did okay at work for several hours though during the middle of his shift he again started to have paresthesias and numbness of the right side of his body. At that time he also experienced several other symptom including blurry vision in his right eye, dull and nonradiating mid chest discomfort, and a headache behind his right eye. He called his at around 03:00 to tell about his symptoms and she noticed that his speech seemed slurred. The symptoms resolved aside from the headache and he came in for evaluation. Vital signs have been stable since arrival and his blood pressures look well controlled aside from a reading of 159/96 on arrival. His labs thus far have since been unremarkable. EKG showed a normal sinus rhythm with borderline ST T-wave abnormalities in the inferior leads. CTA of the head and neck and chest x-ray were both unremarkable. He has since been admitted to the IMU for closer monitoring and evaluation. Currently he is really only experiencing the right-sided headache, all other systems have resolved. Of note he has ongoing, intermittent numbness and tingling of the left arm and fingers related to what sounds like left ulnar nerve neuropathy. This is unchanged. Review of Systems Review of Systems: Twelve systems were reviewed. No syncope or presyncope. No diplopia, vertigo, focal weakness, facial droop, or dysphagia. He has not had any recurrent chest pain. It is my understanding that he has been set up with a stress test in the next several weeks, however he has not been having exertional chest pain. No palpitations or sensations of racing heart. No pleuritic pain or shortness of breath. He has GERD but that seems to be well controlled on PPI. He has remote history of peptic ulcer disease. No melena or hematochezia. He has had some belching and bloating, however. He does not take NSAIDs. No alcohol or caffeine use. Except as documented, all other systems were reviewed and are negative. [facility] Past Medical History Medical History (Updated 04/30/22 @ 18:51 by Anne Kulkarni PA-C) Gastroesophageal reflux disease Hypertension Mixed hyperlipidemia Peptic ulcer Surgical History Surgical History History of arthroscopy of right shoulder History of colonoscopy with polypectomy Family History Family History Grandparent Diabetes mellitus Carcinoma of colon Father Hypertension Baltazar syndrome Mother Family history of malignant neoplasm of breast in first degree relative Hypertension Other Colon polyp Social History Social History (Updated 04/30/22 @ 18:49 by Anne Kulkarni PA-C) Social History: Surrogate medical decision maker: Shantel Tracey, spouse. Code status: Smoking packs per day: 0.25 Smoking cigarettes per day: 5.0 Years smoked: 2 Smoking pack-years: 0.50 Smoking status: Former smoker Tobacco type: cigarettes Second hand tobacco smoke exposure: No Alcohol intake: current Drinks per week: 4 Substance use: never Additional living arrangements comments: The patient lives with his and 2 children. 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 Spiritual care concerns: No Meds Home Medications and Allergies Home Medications Medication Instructions Recorded Confirmed Type multivitamin (Daily Multi-Vitamin 1 tablet PO DAILY 09/29
[2022-04-30 13:09] LABS: Troponin I < 0.012 ng/mL (0.000-0.034)
--- NOTE | 2022-04-30 13:13 | ECHO_ITS ---
Patient Info Name: Sean Tracey Age: 41 years : 1980 Gender: Male Ht: 67 in Wt: 248 lbs BSA: 2.36 m2 HR: 67 bpm BP: 134 / 87 mmHg Technical Quality: Fair Exam Date: 04/30/2022 2:17 PM Exam Location: [facility] Pulmonary Patient Status: Inpatient Admit Date: 04/30/2022 Staff Ordering Physician: Anne Kulkarni PA-C Medical Education Coordinator: Lucero Hernandez RDCS Attending Provider: Landon Arthur MD Referring Physician: Shad LI; Exam Type: CA echo dop color flow w con Study Info Indications R07.9 - Chest pain, unspecified Complete two-dimensional, color flow and Doppler transthoracic echocardiogram is performed with contrast to opacify the left ventricle and to improve the deliniation of the left ventricle endocardial borders. Contrast/Agitated Saline Contrast/Ag. Saline: Definity Amount: --- ml Summary 1. Left ventricular chamber dimension is normal. 2. Definity contrast administered improved wall motion interpretation. 3. Left ventricular systolic function is normal, estimated at 60-65%. 4. There is mildly increased left ventricular wall thickness. 5. The left ventricular diastolic function is normal. 6. There is mild mitral valve regurgitation. 7. There is mild tricuspid valve regurgitation. 8. No pulmonary hypertension, estimated pulmonary arterial systolic pressure is 22 mmHg. Left Ventricle Definity contrast administered improved wall motion interpretation. Left ventricular chamber dimension is normal. Left ventricular systolic function is normal, estimated at 60-65%. There is mildly increased left ventricular wall thickness. The left ventricular diastolic function is normal. Right Ventricle Right ventricular systolic function is normal and with normal TAPSE 2.2 cm. Right ventricular chamber dimension is normal. Left Atria Left atrial chamber dimension is normal. Right Atria Right atrial chamber dimension is normal. Aortic Valve The aortic valve is trileaflet. There is no aortic valve stenosis. There is no aortic valve regurgitation. Pulmonic Valve There is no pulmonic regurgitation. Mitral Valve There is no mitral valve stenosis. There is mild mitral valve regurgitation. Tricuspid Valve There is mild tricuspid valve regurgitation. No pulmonary hypertension, estimated pulmonary arterial systolic pressure is 22 mmHg. Pericardium/Pleural There is no pericardial effusion. Inferior Vena Cava Normal inferior vena cava with >50% collapse upon inspiration consistent with normal right atrial pressure, 5 mmHg. Aorta The aortic root size at the sinus of Valsalva is normal. Left Ventricular Outflow Tract Name Value Normal LVOT 2D LVOT Diameter 1.94 cm LVOT Doppler LVOT Peak Gradient 3 mmHg LVOT Mean Gradient 1 mmHg LVOT VTI 17.22 cm LVOT VTI/AV VTI Ratio 0.76 LVOT Stroke Volume 51.06 ml LVOT CO 3.18 l/min LVOT CI
[2022-04-30] MEDS: PERFLUTREN LIPID MICROSPHERES 1.5 ML VIAL DILUTED TO 10 ML TOTAL VOLUME IV PUSH (14:17)
[2022-04-30 16:37] LABS: Troponin I < 0.012 ng/mL (0.000-0.034)
[2022-04-30 17:33] LABS: Folic Acid > 20.0 ng/mL (2.76->20)
[2022-05-01] VITALS (8 sets, daily range): BP systolic 119–127; BP diastolic 68–79; PULSE 53–73; RESP 14–20; TEMP 36.1–36.7; O2SAT 98–100
[2022-05-01] MEDS: ATORVASTATIN 10 MG TABLET PO (08:15)
[2022-05-01] MEDS: lisinopriL 10 MG TABLET PO (08:15)
[2022-05-01] MEDS: MULTIVITAMINS THERAPEUTIC TAB (*BKC) 1 TABLET PO (08:15)
[2022-05-01] MEDS: ENOXAPARIN 40 MG/0.4 ML SYRINGE SUB-Q (08:15)
[2022-05-01] MEDS: PANTOPRAZOLE 40 MG TABLET PO (08:15)
[2022-05-01] MEDS: METOPROLOL SUCCINATE EXT REL 100 MG TABCR PO (08:15)
--- NOTE | 2022-05-01 08:50 | WPDNEURCNPN ---
Assessment and Plan Assessment and plan (1) Right sided weakness: Code(s): R53.1 - Weakness Status: Acute Assessment and Plan: 41 year old male presenting with intermittent R sided numbness and weakness. Differential includes stroke, demyelinating disease, hemiplegic migraine, and functional neurological disorder. Neuro exam this morning is completely non-focal. Recommend - MRI brain w/wo contrast - MRI cervical spine w/wo contrast - MRI thoracic spine w/wo contrast Consult date: 05/01/22 Time Seen: 08:50 Reason for consult: Intermittent R sided weakness HPI: Sean Tracey is a 41 year old male with a history of HLD and HTN who presented yesterday due to multiple transient episodes of RUE/RLE weakness and numbness. Patient reports he had similar episode about a year ago. He has also had previous admission to [facility] for MS type symptoms and had an MRI brain, cervical, and thoracic spine as well as lumbar puncture with CSF studies all of which were negative. He had been following with Dr. Billingsley and had an EMG/NCS which showed left ulnar neuropathy. His last known well was 1929 on 04/29. He reported three episodes lasting 15 minutes each described headache on the R side behind his right eye associated with RUE/RLE numbness and weakness. He also had blurry vision in the right eye. He denied any double vision problems with his hearing, swallowing, change in voice. He was taken to [facility] ED where he had a CT head which was negative. CTA was negative as well. EKG showed sinus rhythm. He was outside the window for tPA. Labs on admission unremarkable. He is not a smoker. Patient reports that this morning he had another episode of RUE numbness that self-resolved after a few minutes. He denies any current symptoms. The last time he had these symptoms was about a year ago. Review of Systems Constitutional: Constitutional: Denies fatigue and Reports weakness Eyes: Eyes: Reports blurry vision ENT: Reports Normal hearing present and Denies dysphagia Cardiovascular: Cardiovascular: Reports chest pain Respiratory: Respiratory: Reports dyspnea Gastrointestinal: Gastrointestinal: Denies abdominal pain and Reports diarrhea Musculoskeletal: Musculoskeletal: Reports no additional musculoskeletal complaints Integumentary/Breasts: Skin/Breast: Reports system reviewed and no additional complaints, except as docu Neurologic: Reports as per HPI Psychiatric: Psychiatric: Reports no additional psychiatric complaints [facility] Past Medical History Medical History Gastroesophageal reflux disease Hypertension Mixed hyperlipidemia Peptic ulcer Surgical History Surgical History History of arthroscopy of right shoulder History of colonoscopy with polypectomy Family History Family History Grandparent Diabetes mellitus Carcinoma of colon Father Hypertension Baltazar syndrome Mother Family history of malignant neoplasm of breast in first degree relative Hypertension Other Colon polyp Social History Social History Social History: Surrogate medical decision maker: Shantel Tracey, spouse. Code status: Smoking packs per day: 0.25 Smoking cigarettes per day: 5.0 Years smoked: 2 Smoking pack-years: 0.50 Smoking status: Former smoker Tobacco type: cigarettes Second hand tobacco smoke exposure: No Alcohol intake: current Drinks per week: 4 Substance use: never Additional living arrangements comments: The patient lives with his and 2 children. 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 Spiritual care concerns: No Meds Home Medications and Allergies Home Medications Medication Instructions Recorded Confirmed Type multivitamin (Daily Mul
--- NOTE | 2022-05-01 11:52 | PM.DS ---
DS: Admitting Diagnosis Discharge Date 05/01/2022 Admitting Diagnosis Right upper extremity numbness DS: Discharge Diagnosis Discharge Diagnosis (1) Paresthesias: Code(s): R20.2 - Paresthesia of skin Status: Acute Assessment and Plan: The patient was hospitalized last March with somewhat similar symptoms of headache with right face muscle fasciculations, blurred vision, dizziness, and tremors. His symptoms did improve with diazepam. A thorough workup was completed to rule out possibility of demyelinating disease and MRIs of the brain, cervical, and thoracic spine were all negative. Lumbar puncture was also unremarkable. Patient reports a right shoulder injury last year and he is wondering if this is causing the symptoms however that would not affect the entire right side of his body. Continue neurologic checks. Brain MRI pending. Neurology consulted. (2) Chest pain: Code(s): R07.9 - Chest pain, unspecified Status: Acute Assessment and Plan: Patient reports a brief in self-limiting episode of mid chest dull ache while at work. He has not had any exertional chest pain. It is my understanding that he is supposed to have a stress test in the coming weeks. He will be monitored closely on telemetry and troponins will be trended. Echocardiogram ordered. (3) Headache: Code(s): R51.9 - Headache, unspecified Status: Acute Assessment and Plan: Possible atypical migraine causing the paresthesias. Supportive care. (4) Hypertension: Code(s): I10 - Essential (primary) hypertension Status: Acute Assessment and Plan: Blood pressures were reviewed and it seems to be under control. Although his presenting BP was 159/96, all other readings have been normal. Continue lisinopril and metoprolol and monitor daily. (5) Mixed hyperlipidemia: Code(s): E78.2 - Mixed hyperlipidemia Status: Acute Assessment and Plan: Continue atorvastatin 10 mg daily. LFTs within normal limits. (6) Gastroesophageal reflux disease: Code(s): K21.9 - Gastro-esophageal reflux disease without esophagitis Status: Acute Assessment and Plan: May be the cause of the chest discomfort he had earlier with reports of bloating and belching. He does have a history of peptic ulcers though his current history does not suggest active ulcers. Continue PPI. (7) Right sided weakness: Code(s): R53.1 - Weakness Status: Acute DS: Summary Hospital Course Hospital Course: 41-year-old male with hypertension, hyperlipidemia, GERD, and remote history of peptic ulcers who presented to the emergency department for evaluation of right-sided numbness and a headache. He works overnight at [employer] and while driving to work at about 19:30 last evening he noticed that the right side of his body seemed to be a bit tingly. That passed and he did okay at work for several hours though during the middle of his shift he again started to have paresthesias and numbness of the right side of his body. At that time he also experienced several other symptom including blurry vision in his right eye, dull and nonradiating mid chest discomfort, and a headache behind his right eye. He called his at around 03:00 to tell about his symptoms and she noticed that his speech seemed slurred. The symptoms resolved aside from the headache and he came in for evaluation. Vital signs have been stable since arrival and his blood pressures look well controlled aside from a reading of 159/96 on arrival. His labs thus far have since been unremarkable. EKG showed a normal sinus rhythm with borderline ST T-wave abnormalities in the inferior leads. CTA of the head and neck and chest x-ray were both unremarkable. He has since been admitted to the IMU for closer monitoring and evaluation. Currently he is really only experiencing the right-sided headache, all other systems have resolved. Of note he has ongoing,
== END 2022-05-01 13:47 | disposition home or self-care (01) ==
LOC: ANHED 10:49 → ANHIMU 11:07
PROVIDERS: Physician Assistant; Admitting Provider Chiropractor; Emergency Provider Emergency Medicine; PCP Physician Assistant; Visit Provider Student in an Organized Health Care Education/Training Program
DX: R20.2 Paresthesia of skin (principal); R07.9 Chest pain, unspecified; R51.9 Headache, unspecified; I10 Essential (primary) hypertension; E78.2 Mixed hyperlipidemia; K21.9 Gastro-esophageal reflux disease without esophagitis; R53.1 Weakness; I08.1 Rheumatic disorders of both mitral and tricuspid valves; R29.701 NIHSS score 1; Z20.822 Contact with and (suspected) exposure to COVID-19; Z87.891 Personal history of nicotine dependence; Z87.11 Personal history of peptic ulcer disease; Z82.49 Family history of ischemic heart disease and other diseases of the circulatory system; Z79.899 Other long term (current) drug therapy
CPT/HCPCS: 36415; 70496; 70498; 70553; 71045; 80053; 82607; 82746; 83735; 84443; 84484; 85025; 85610; 85730; 93005; 96372; 96374; 99285; A9270; A9577; C8929; C9803; G0378; J1650; Q9957; Q9967; U0003; U0005

== ENCOUNTER 2022-05-12 16:07 | Outpatient (CLI) | payer OTHER, SELFPAY ==
--- NOTE | ~2022-05-12 | MR_ITS ---
EXAMINATION: MR cervical spine wo/w con DATE: 05/12/2022 17:24 INDICATION: Paresthesias of skin. TECHNIQUE: Magnetic resonance imaging (MRI) of the cervical spine was performed without and with 20 m L MultiHance intravenous contrast. COMPARISON: Cervical spine MRI 04/03/2021 FINDINGS: Bone alignment is normal. Vertebral body heights and intervertebral disc heights are normal . The spinal cord signal intensity is normal. The following disc levels are specifically discussed: C2-C3: The disc does not extend beyond the endplate margin. There is no uncovertebral joint osteoarth ritis. There is no facet joint osteoarthritis. There is no neural foraminal stenosis. There is no regino tral canal stenosis. C3-C4: There is a central protrusion. There is mild bilateral uncovertebral joint osteoarthritis. The re is no facet joint osteoarthritis. There is mild left neural foraminal stenosis. There is mild cent ral canal stenosis. C4-C5: There is a left central extrusion. There is mild left uncovertebral joint osteoarthritis. Ther e is mild right facet joint osteoarthritis. There is no neural foraminal stenosis. There is mild cent ral canal stenosis. C5-C6: There is a central protrusion. There is no uncovertebral joint osteoarthritis. There is no fac et joint osteoarthritis. There is no neural foraminal stenosis. There is no central canal stenosis. C6-C7: The disc does not extend beyond the endplate margin. There is no uncovertebral joint osteoarth ritis. There is no facet joint osteoarthritis. There is no neural foraminal stenosis. There is no regino tral canal stenosis. C7-T1: The disc does not extend beyond the endplate margin. There is no uncovertebral joint osteoarth ritis. There is moderate right facet joint osteoarthritis. There is mild right neural foraminal steno sis. There is no central canal stenosis. IMPRESSION: 1. Mild cervical spondylosis, stable from 04/03/2021. Reviewed, dictated and finalized at location A.
--- NOTE | ~2022-05-12 | MR_ITS ---
EXAMINATION: MR thoracic spine wo/w con DATE: 05/12/2022 17:25 INDICATION: Paresthesias of skin. TECHNIQUE: Magnetic resonance imaging (MRI) of the thoracic spine was performed without and with 20 m L MultiHance intravenous contrast. COMPARISON: Thoracic spine MRI 04/03/21 FINDINGS: Bone alignment is normal. Vertebral body heights and intervertebral disc heights are normal . There is multilevel mild facet joint osteoarthritis. No neural foraminal stenosis. At T8-T9, there is a central protrusion with mild central canal stenosis. At T9-T10, there is a left central protrusi on with mild central canal stenosis. The spinal cord signal intensity is normal. IMPRESSION: 1. Mild thoracic spondylosis. Reviewed, dictated and finalized at location A.
== END 2022-05-12 16:08 | disposition home or self-care (01) ==
LOC: ANHIMG 16:11
PROVIDERS: PCP Family Medicine; Visit Provider Physician Assistant
DX: R53.1 Weakness (principal); R20.2 Paresthesia of skin; M47.814 Spondylosis without myelopathy or radiculopathy, thoracic region; M47.812 Spondylosis without myelopathy or radiculopathy, cervical region
CPT/HCPCS: 72156; 72157; A9577

== ENCOUNTER 2022-05-13 14:41 | Outpatient (CLI) | payer OTHER, SELFPAY ==
--- NOTE | 2022-05-24 15:23 | WPDHOLTEREM ---
Holter/Event Monitor Holter/Event Monitor Date of procedure: 05/13/22 Holter/Event Procedure: 24 Hr Holter Monitor Indications: Bradycardia Conclusion: 1. 24 hour holter monitor on 05/13/22. 2. Underlying rhythm is sinus rhythm. HR range 42-122 bpm; average HR 80 bpm. 3. There are 2 premature supraventricular complexes. No supraventricular tachycardia. 4. No premature ventricular complexes. No ventricular tachycardia. 5. No sinoatrial or atrioventricular blocks. No significant pauses greater than 2 seconds. 6. Patient reports symptoms of chest pain, heart racing and right leg numbness which demonstrate sinus rhythm, HR range 71-89 bpm.
== END 2022-05-13 14:42 | disposition home or self-care (01) ==
LOC: ANHCARD 14:43
PROVIDERS: PCP Family Medicine; Visit Provider Family Medicine
DX: R00.1 Bradycardia, unspecified (principal)
CPT/HCPCS: 93225; 93226

== ENCOUNTER 2022-06-08 09:48 | Outpatient (CLI) | payer OTHER, SELFPAY ==
--- NOTE | 2022-06-08 10:35 | EST_ITS ---
Patient Info Name: Sean Tracey Age: 41 years : 1980 Gender: Male Ht: 67 in Wt: 235 lbs BSA: 2.29 m2 Exam Date: 06/08/2022 10:48 AM Exam Location: [facility] Stress Patient Status: Outpatient Admit Date: 06/08/2022 Staff Ordering Physician: Brenda Hare PA-C Attending Provider: Jodie Frankel MD Exercise Technologist: Bravo Ventura RDCS, RT Exercise Physician: Jovi Egan DO Exam Type: CA stress test treadmill Summary 1. 1. Negative [facility] exercise stress test for ischemic ST changes by ECG criteria. 2. 2. Reduced functional capacity, achieving 10 METs of workload. 3. 3. Baseline hypertension with hypertensive response to exercise. 4. 4. Appropriate HR response to exercise. 5. 5. Appropriate HR recovery at 1 minute post exercise. 6. 6. No imaging with stress testing. 7. 6. Patient informed of the above results. Protocol: [facility] Stress ECG Details Stage: REST Duration (min): 2 min : 16 sec Speed (mph): 0.0 Grade (%): 0 HR (bpm): 83 SBP (mmHg): 144 DBP (mmHg): 98 METS: --- Stage: REST Duration (min): 7 min : 33 sec Speed (mph): 0.0 Grade (%): 0 HR (bpm): 81 SBP (mmHg): 144 DBP (mmHg): 98 METS: --- Stage: STAGE 1 Duration (min): 1 min : 0 sec Speed (mph): 1.7 Grade (%): 10 HR (bpm): 107 SBP (mmHg): 144 DBP (mmHg): 98 METS: --- Stage: STAGE 1 Duration (min): 2 min : 0 sec Speed (mph): 1.7 Grade (%): 10 HR (bpm): 116 SBP (mmHg): 144 DBP (mmHg): 98 METS: --- Stage: STAGE 1 Duration (min): 3 min : 0 sec Speed (mph): 1.7 Grade (%): 10 HR (bpm): 117 SBP (mmHg): 194 DBP (mmHg): 77 METS: --- Stage: STAGE 2 Duration (min): 1 min : 0 sec Speed (mph): 2.5 Grade (%): 12 HR (bpm): 128 SBP (mmHg): 194 DBP (mmHg): 77 METS: --- Stage: STAGE 2 Duration (min): 2 min : 0 sec Speed (mph): 2.5 Grade (%): 12 HR (bpm): 137 SBP (mmHg): 197 DBP (mmHg): 80 METS: --- Stage: STAGE 2 Duration (min): 3 min : 0 sec Speed (mph): 2.5 Grade (%): 12 HR (bpm): 139 SBP (mmHg): 197 DBP (mmHg): 80 METS: --- Stage: STAGE 3 Duration (min): 1 min : 0 sec Speed (mph): 3.4 Grade (%): 14 HR (bpm): 152 SBP (mmHg): 217 DBP (mmHg): 85 METS: --- Stage: STAGE 3 Duration (min): 2 min : 0 sec Speed (mph): 3.4 Grade (%): 14 HR (bpm): 160 SBP (mmHg): 217 DBP (mmHg): 85 METS: --- Stage: STAGE 3 Duration (min): 3 min : 0 sec Speed (mph): 3.4 Grade (%): 14 HR (bpm): 164 SBP (mmHg): 238 DBP (mmHg): 58 METS: --- Stage: RECOVERY Duration (min): 0 min : 59 sec Speed (mph): 0.0 Grade (%): 0 HR (bpm): 140 SBP (mmHg): 238 DBP (mmHg): 58 METS: --- Stage: RECOVERY Duration (min): 1 min : 59 sec Speed (mph): 0.0 Grade (%): 0
== END 2022-06-08 09:49 | disposition home or self-care (01) ==
LOC: ANHCARD 09:50
PROVIDERS: PCP Family Medicine; Visit Provider Family Medicine
DX: R07.89 Other chest pain (principal)
CPT/HCPCS: 93017

== ENCOUNTER 2022-08-18 08:18 | Outpatient (CLI) | payer OTHER, SELFPAY ==
--- NOTE | 2022-09-08 19:25 | WPDHOMESLEEP ---
Sleep Study - Home Unattended Date of Study: 08/18/22 Ordering Provider: Jodie Frankel MD Interpreting Provider: Daily Cyr MD Home Sleep Study Type: Watch PAT Height: 1.7 m Weight: 104.326 kg Body Mass Index: 36.0 Neck Circumference (inches): 16 Allred: 21 Reason for Sleep Study Hypersomnolence Sleep History Sean Tracey is a 41-year-old man With complaints of twitching at night, gasping for air, loud snoring and witnessed apneas. He has difficulty falling asleep and staying asleep. He wakes during the night. He is sleepy during the day. He occasionally awakens from sleep feeling short of breath. He constantly awakens at night with heartburn, belching or coughing. He constantly snores very loudly. He always has trouble sleeping with a cold. He always wakes up gasping for breath at night. He occasionally has breathing problems at night reported to him by others. He frequently sweats excessively at night. He constantly notices his heart pounding or beating irregularly at night. He constantly falls asleep during the day and constantly falls asleep involuntarily. He occasionally falls asleep while driving. He occasionally has loss of muscle tone with strong emotion. He always has difficulties with his job due to excessive sleepiness. 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 He occasionally feels paralyzed on waking or falling asleep. He occasionally has vivid dreamlike scenes on waking or falling asleep. He occasionally feels afraid to go to sleep. He constantly has nightmares. He always remembers his dreams. He always has racing thoughts. He rarely feels sad or depressed. He occasionally has anxiety. He occasionally has muscular tension. He frequently notices parts of his body jerking. He rarely kicks at night. He rarely has crawling and aching feelings in his legs. He occasionally has leg pain at night. He does not have morning jaw pain. He occasionally grinds his teeth during sleep. He occasionally is bothered by pain during the day and awakened by pain at night. He always wakes up feeling stiff in the morning with sore achy muscles and pain in the neck and spine. He has memory problems, headaches, nightmares and concentration difficulties. He has insomnia. Normal bedtime is 10:00 p.m. taking a few hours to fall asleep typically waking 3 or far 4 times during the night. While awake he tries to reposition in the bed, may stare at the ceiling trying to fall asleep. It may take him 30-40 minutes to return to sleep. He wakes at 1:00 a.m.. His weekend schedule is different, going to bed at 11:00 a.m. and waking at 2:00 p.m.. He estimates getting 3 hours of sleep on a normal night. He takes naps in the afternoon or evening. A short nap lasting 10 or 15 minutes is not refreshing. He is usually drowsy for 3 hours or longer after waking. He always feels tired. Habits: He quit tobacco 18 years ago. He does Not drink caffeine. He drinks 2 alcoholic beverages a day. No recreational substances. FORMERLY [facility] Past Medical History Medical History Gastroesophageal reflux disease Hematemesis Mixed hyperlipidemia Peptic ulcer Surgical History Surgical History History of arthroscopy of right shoulder History of colonoscopy with polypectomy Family History Family History Grandparent Diabetes mellitus Carcinoma of colon Father Hypertension Baltazar syndrome Mother Family history of malignant neoplasm of breast in first degree relative Hypertension Other Colon polyp Social History Social History Social History: Surrogate medical decision maker: Shantel Tracey, spouse. Code status: Smoking packs per day: 0.25 Smoking cigarettes per day: 5.0 Years smoked: 2 Smoking pack-y
[2022-09-08 19:42] VITALS: BMI 36.0
== END 2022-08-23 09:15 | disposition home or self-care (01) ==
PROVIDERS: PCP Family Medicine; Visit Provider Family Medicine
DX: G47.33 Obstructive sleep apnea (adult) (pediatric) (principal); G47.10 Hypersomnia, unspecified; K21.9 Gastro-esophageal reflux disease without esophagitis; E78.5 Hyperlipidemia, unspecified; Z87.891 Personal history of nicotine dependence
CPT/HCPCS: 95800

== ENCOUNTER 2023-04-19 10:21 | Outpatient (CLI) | payer OTHER, SELFPAY ==
[2023-04-19 19:00] LABS: Alanine Aminotransferase 30 U/L (6-50); Albumin Level 4.2 g/dL (3.5-5.1); Alkaline Phosphatase 80 U/L (38-126); Anion Gap 8 mmol/L (8-16); Aspartate Amino Transferase 35 U/L (17-59); Bilirubin,Total 0.3 mg/dL (0.2-1.3); Blood Urea Nitrogen 18 mg/dL (9-20); Calcium 8.7 mg/dL (8.4-10.2); Carbon Dioxide 28 mmol/L (22-30); Chloride 108 mmol/L (98-107); Cholesterol 156 mg/dL (0-200); Estimated Glomerular Filt Rate > 60; Glucose 98 mg/dL (65-110); HDL Direct 38 mg/dL; Potassium 3.9 mmol/L (3.4-5.0); Sodium 144 mmol/L (137-145); Triglycerides 94 mg/dL (<150)
[2023-04-19 19:05] LABS: Basophils Absolute Auto 0.1 K/mm3 (0.0-0.1); Basophils Percent Auto 0.6 % (0.2-1.2); Eosinophils Absolute Auto 0.1 K/mm3 (0-0.3); Eosinophils Percent Auto 1.5 % (0-4.4); Hematocrit 42.6 % (42.0-52.0); Hemoglobin 13.8 g/dL (14.0-18.0); Immature Granulocyte Absolute 0.05 K/mm3 (0.00-0.031); Immature Granulocyte Percent A 0.6 % (0-0.5); Lymphocytes Absolute Auto 2.65 K/mm3 (0.9-3.2); Lymphocytes Percent Auto 33.2 % (18.3-44.2); Mean Corpuscular HGB Conc 32.4 g/dl (32-36); Mean Corpuscular Hemoglobin 29.1 pg (26-34); Mean Corpuscular Volume 89.9 fl (80-100); Mean Platelet Volume 11.4 fl (7.4-10.4); Monocytes Absolute Auto 0.7 K/mm3 (0.1-0.6); Monocytes Percent Auto 8.3 % (2.6-8.5); Neutrophils Absolute Auto 4.4 K/mm3 (1.3-6.7); Neutrophils Percent Auto 55.8 % (45.5-73.1); Platelet Count Result 233 k/mm3 (150-375); Red Blood Count 4.74 M/mm3 (4.6-6.20)
[2023-04-19 19:10] LABS: LDL Cholesterol Direct 100 mg/dL
[2023-04-19 20:04] LABS: Vitamin D 25 Hydroxy 22.4 ng/mL
== END 2023-04-19 10:22 | disposition home or self-care (01) ==
LOC: ANHGOSHLAB 10:23
PROVIDERS: PCP Family Medicine; Visit Provider Family Medicine
DX: Z00.00 Encounter for general adult medical examination without abnormal findings (principal); E78.2 Mixed hyperlipidemia; E66.01 Morbid (severe) obesity due to excess calories; Z68.38 Body mass index [BMI] 38.0-38.9, adult; G47.33 Obstructive sleep apnea (adult) (pediatric)
CPT/HCPCS: 36415; 80053; 80061; 82306; 82607; 82728; 84443; 85025

== ENCOUNTER 2023-06-14 08:57 | Outpatient (CLI) | payer OTHER, SELFPAY | END 2023-06-14 08:58 | disposition home or self-care (01) | LOC: ANHAUDIO 08:59 | PROVIDERS: PCP Family Medicine; Visit Provider Family Medicine | DX: H91.92 Unspecified hearing loss, left ear (principal) | CPT/HCPCS: 92557; 92567 ==

== ENCOUNTER 2024-02-28 14:13 | Outpatient (CLI) | payer OTHER, SELFPAY ==
--- NOTE | ~2024-02-28 | XR_ITS ---
XR shoulder LT min 2V Ordering provider: Jodie Frankel MD History: . lifting injury a few weeks ago lateral shoulder pain . Comparison: None. FINDINGS: BONES: No acute fracture or dislocation. JOINT SPACES: The acromioclavicular joint shows osteoarthritic changes. The glenohumeral joint is nor mal. SOFT TISSUES: Normal. IMPRESSION: No acute osseous abnormality left shoulder. Reviewed, dictated and finalized at location A.
== END 2024-02-28 14:14 ==
PROVIDERS: PCP Family Medicine; Visit Provider Family Medicine
DX: M25.512 Pain in left shoulder (principal); X50.9XXA Other and unspecified overexertion or strenuous movements or postures, initial encounter
CPT/HCPCS: 73030

== ENCOUNTER 2024-05-03 20:45 | Emergency (ER) | payer OTHER, SELFPAY ==
--- NOTE | ~2024-05-03 | CT_ITS ---
EXAMINATION: CT abdomen pelvis w con DATE: 05/04/2024 00:28 INDICATION: Abdominal pain. TECHNIQUE: Computed tomography (CT) of the abdomen and pelvis was performed with 100 mL Omnipaque 350 intravenous contrast. Automated exposure control and iterative reconstruction technique were employe d. The dose-length product was 947.64 mGy-cm. COMPARISON: None. FINDINGS: The visualized portions of the lung bases demonstrate mild atelectasis. No pleural effusion . The heart size is normal. No pericardial effusion. The liver, gallbladder, spleen, pancreas, left a drenal gland, and kidneys are normal. There is a 10 mm mass in right adrenal gland, likely an adenoma in the absence of known malignancy. The bladder is distended. There are bilateral inguinal hernias c ontaining fat. There are no dilated loops of bowel. The appendix is normal. There are no pathological ly enlarged lymph nodes. There is no free intraperitoneal fluid. There is mild thoracic spondylosis a nd moderate lumbar spondylosis. IMPRESSION: 1. Bilateral inguinal hernias containing fat. Reviewed, dictated and finalized at location A.
[2024-05-03 21:10] VITALS: BP 134/85; PULSE 96; TEMP 36.6; O2SAT 100
[2024-05-03 23:31] LABS: Basophils Absolute Auto 0.1 K/mm3 (0.0-0.1); Basophils Percent Auto 0.6 % (0.2-1.2); Eosinophils Absolute Auto 0.2 K/mm3 (0-0.3); Eosinophils Percent Auto 2.2 % (0-4.4); Hematocrit 41.3 % (42.0-52.0); Hemoglobin 14.2 g/dL (14.0-18.0); Immature Granulocyte Absolute 0.07 K/mm3 (0.00-0.031); Immature Granulocyte Percent A 0.8 % (0-0.5); Lymphocytes Absolute Auto 2.79 K/mm3 (0.9-3.2); Lymphocytes Percent Auto 31.8 % (18.3-44.2); Mean Corpuscular HGB Conc 34.4 g/dl (32-36); Mean Corpuscular Hemoglobin 30.1 pg (26-34); Mean Corpuscular Volume 87.5 fl (80-100); Mean Platelet Volume 10.3 fl (7.4-10.4); Monocytes Absolute Auto 0.8 K/mm3 (0.1-0.6); Monocytes Percent Auto 8.9 % (2.6-8.5); Neutrophils Absolute Auto 4.9 K/mm3 (1.3-6.7); Neutrophils Percent Auto 55.7 % (45.5-73.1); Platelet Count Result 240 k/mm3 (150-375); Red Blood Count 4.72 M/mm3 (4.6-6.20); Red Cell Distribution Width 13.3 % (11.5-14.5); White Blood Count 8.8 K/mm3 (4.5-10.0)
[2024-05-03 23:41] LABS: Alanine Aminotransferase 28 U/L (6-50); Albumin Level 4.3 g/dL (3.5-5.1); Alkaline Phosphatase 84 U/L (38-126); Anion Gap 9 mmol/L (4-12); Aspartate Amino Transferase 27 U/L (17-59); Bilirubin,Total 0.5 mg/dL (0.2-1.3); Blood Urea Nitrogen 16 mg/dL (9-20); Calcium 8.9 mg/dL (8.4-10.2); Carbon Dioxide 25 mmol/L (22-30); Chloride 105 mmol/L (98-107); Estimated CRCL calculation 111 ml/min; Estimated Glomerular Filt Rate > 60; Glucose 89 mg/dL (65-110); Lipase 70 U/L (23-300); Potassium 3.8 mmol/L (3.4-5.0); Sodium 139 mmol/L (137-145)
--- NOTE | 2024-05-04 00:02 | ECG_ITS ---
Test Date: 2024-05-04 00:49:46 Measurements Intervals [place] Rate: 71 P: 64 AR: 161 QRS: 16 QRSD: 84 T: 19 QT: 361 QTc: 394 Interpretive Statements SINUS RHYTHM BASELINE ARTIFACT- I, II, III, AVR, AVL, AVF, V4-V6 NORMAL ECG No previous ECG available for comparison Electronically Signed On 05-04-2024 06:35:03 CDT by Jovi Egan D.O.
--- NOTE | 2024-05-04 00:35 | ED.ABDPAIN ---
HPI - Abdominal Pain General Chief Complaint: Abdominal Pain Stated Complaint: constipation x 2 days, L sided abd pain Time Seen by Provider: 05/03/24 23:21 History of Present Illness HPI narrative: Patient is a 43-year-old male presents the ER with upper left quadrant abdominal pain. He reports the pain started 2-3 days ago he was so nauseated that work that he vomited. Patient reports he has only been able to urinate small amounts last 2-3 days and he has not had a bowel movement in 2-3 days. He reports he has a history of hypertension, hyperlipidemia and cluster headaches. Patient denies chest pain, shortness of breath, burning in his chest, one-sided weakness or numbness, new onset headache or fever. Related Data Home Medications Medication Instructions Recorded Confirmed multivitamin (Daily Multi-Vitamin 1 tablet PO DAILY 10/22/20 04/24/24 tablet) Allergies Allergy/AdvReac Type Severity Reaction Status Date / Time peach Allergy Severe Swelling/HIVES/SEE Verified 04/24/24 09:47 COMMENT metoprolol AdvReac Severe bradycardia Verified 04/24/24 09:47 Review of Systems Review of Systems: All systems reviewed & are unremarkable except as noted in HPI and below PMFSH Past Medical History Medical History Chest pain Chest pain Dizziness Essential hypertension Frequent headaches : MRI brain, cervical, and thoracic spine as well as lumbar puncture with CSF studies all of which were negative, except he was positive for oligoclonal bands (in serum and CSF) and had elevated protein 90. He had been following with Dr. Billingsley and had an EMG/NCS which showed left ulnar neuropathy. Frozen shoulder Gastroesophageal reflux disease Hematemesis Hemifacial spasm of right side of face Hypersomnia Left ear hearing loss mild high frequency loss bilat alf use of drug Mixed hyperlipidemia Obesity Obstructive sleep apnea 2021 home sleep study: moderate obstructive sleep apnea 78%, loud frequent snoring? Recommendation: auto PAP with pressures between 5 cm and 16 cm with a comfortable mask and heated humidity.?He should also have all related equipment including tubing, filters and reservoir.? Follow up in 30-90 days. If not tolerating or not improving then will need cpap titration. ?? Peptic ulcer Snoring Surgical History Surgical History History of arthroscopy of right shoulder History of colonoscopy with polypectomy Family History Family History Grandparent Diabetes mellitus Carcinoma of colon Father Hypertension Baltazar syndrome Mother Family history of malignant neoplasm of breast in first degree relative Hypertension Other Colon polyp Social History Social History Social History: Surrogate medical decision maker: Shantel Tracey, spouse. Code status: Smoking packs per day: 0.25 Smoking cigarettes per day: 5.0 Years smoked: 2 Smoking pack-years: 0.50 Smoking status: Former smoker Tobacco type: cigarettes Second hand tobacco smoke exposure: No Alcohol intake: current Alcohol use details: Rarely Substance use: never Substance use type: does not use Do You Feel Safe in your Home?: Yes Lack of Transportation: No Lack of Food: Never True Current Housing: I Have Housing Concerned About Future Housing: No Difficulty Paying Gas/Electric Bills: No Difficulty Paying for Meds: No Currently Unemployed: No Education: High School Diploma/GED Difficulty w/ Childcare or Family Care: No Living arrangements: with family Additional living arrangements comments: The patient lives with his and 2 children. 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 Spiritual care concerns:
[2024-05-04 00:47] LABS: Troponin I < 0.012 ng/mL (0.000-0.034)
[2024-05-04] MEDS: PANTOPRAZOLE SODIUM IV 40 MG VIAL IV PUSH (00:51)
[2024-05-04] MEDS: KETOROLAC 30 MG/ML VIAL (*BKC) IV PUSH (00:51)
[2024-05-04] MEDS: FAMOTIDINE 20 MG/2 ML VIAL IV PUSH (00:51)
[2024-05-04] MEDS: SODIUM CHLORIDE 0.9% IV 1,000 ML 999 ML IV CONT (00:52)
[2024-05-04] MEDS: MORPHINE SULFATE (*CRX) 4 MG/ML INJ IV PUSH (00:52)
[2024-05-04 02:08] LABS: Influenza A QL RT-PCR Negative (Negative); Influenza B QL RT-PCR Negative (Negative); RSV RNA, RT-PCR Negative (Negative); SARS-CoV-2 RNA PCR Negative (Negative)
[2024-05-04 02:45] LABS: Add Urine Microscopic? YES; Appearance Urine Cloudy (Clear); Bacteria Urine None Seen /hpf; Bilirubin Urine Negative (Negative); Blood Urine Negative (Negative); Color Urine Yellow (Yellow); Glucose Urine UA Negative (Negative); Ketones Urine Negative (Negative); Leukocyte Esterase Ur Negative LEU/UL (Negative); Nitrate Urine Negative (Negative); Non Pathogenic Casts 0-2; Protein Urine Negative (Negative); RBC Urine 0-2 /hpf (0-2); Specific Grav Ur 1.025 (1.001-1.035); Squamous Epithelial Cell Urine None Seen /hpf (Few); WBC Urine 0-5 /hpf (0-3)
[2024-05-04 03:45] VITALS: BP 108/58; PULSE 65; RESP 15; O2SAT 98
[2024-05-04] MEDS: BELLADONNA ALK/PHENOB ELIX 10 ML, MAG HYDROX/ALUMINUM HYD/SIMETH 30 ML, LIDOCAINE HCL 2... PO (04:12)
[2024-05-04 04:16] VITALS: BP 116/58; PULSE 74; RESP 15; O2SAT 100
== END 2024-05-04 04:16 | disposition home or self-care (01) ==
PROVIDERS: Emergency Medicine; Emergency Provider Registered Nurse; PCP Family Medicine
DX: K76.0 Fatty (change of) liver, not elsewhere classified (principal); I10 Essential (primary) hypertension; E78.5 Hyperlipidemia, unspecified; K21.9 Gastro-esophageal reflux disease without esophagitis; E66.9 Obesity, unspecified; Z68.36 Body mass index [BMI] 36.0-36.9, adult; G47.33 Obstructive sleep apnea (adult) (pediatric); Z87.891 Personal history of nicotine dependence; Z20.822 Contact with and (suspected) exposure to COVID-19
CPT/HCPCS: 36415; 74177; 80053; 81001; 83690; 84484; 85025; 87637; 93005; 96361; 96374; 96375; 99284; A9270; J1885; J2270; J2470; J7030; Q9967

== ENCOUNTER 2024-05-25 09:32 | Outpatient (CLI) | payer OTHER, SELFPAY ==
--- NOTE | ~2024-05-25 | MR_ITS ---
MRI of the left shoulder Technique: Axial proton-density fat-sat images, coronal proton density fat-sat and T2 fat-sat images, and sagittal T1-weighted and T2 fat-sat images were acquired. Clinical History: Pain Findings: There is minimal AC joint degenerative change. Coracoclavicular, coracoacromial, and coraco humeral ligaments are intact. Supraspinatus and infraspinatus tendons are intact, with minimal tendinosis, but no partial or full-t hickness tear. Subscapularis tendon is intact. Tendon of long head of the biceps is intact, probable mild intra-articular tendinosis. No definite labral tear identified. There is thickening and increased signal of the inferior glenohumeral ligament. No significant joint effusion or degenerative change evident. No muscle atrophy or edema. No fluid distention of the subac romial/subdeltoid bursa. Impression: Findings suggestive of adhesive capsulitis. Minimal rotator cuff tendinosis. Reviewed, dictated and finalized at [facility]. Impression: Findings suggestive of adhesive capsulitis. Minimal rotator cuff tendinosis.
== END 2024-05-25 09:33 | disposition home or self-care (01) ==
LOC: MICIMG 09:33
PROVIDERS: PCP Family Medicine; Visit Provider Nurse Practitioner Family
DX: M25.512 Pain in left shoulder (principal)
CPT/HCPCS: 73221

== ENCOUNTER 2024-06-14 20:51 | Emergency (ER) | payer OTHER, SELFPAY ==
[2024-06-14] VITALS (8 sets, daily range): BP systolic 111–153; BP diastolic 70–88; PULSE 71–85; RESP 16–18; TEMP 36.4–36.5; O2SAT 95–100
--- NOTE | ~2024-06-14 | CT_ITS ---
CT chest abdomen pelvis w con Ordering provider: Sarah Horta APRN History: 43 years Male with . chest pain, upper L quadrant pain, Diarrhea . Comparison: None. Technique: CT chest with IV contrast. CT abdomen and pelvis CT abdomen and pelvis with IV and with or al contrast. Radiation reduction technique utilized. The dose-length product was 1816.05 mGy-cm. 100 mL Omnipaque 350 was given IV. FINDINGS: CHEST: --VISUALIZED THORACIC INLET: Normal. --MEDIASTINUM: Aorta/coronary arteries: The thoracic aorta is normal. Heart/other: The heart is not enlarged. Lymph nodes: No mediastinal or hilar adenopathy. --LUNGS: No pulmonary nodules or masses. No infiltrates or effusions. No pneumothorax. Bilateral depe ndent atelectatic changes. --MUSCULOSKELETAL: Soft tissues: The superficial soft tissues are normal. Bones: Age appropriate degenerative changes of the spine. No suspicious bony lytic or sclerotic lesio ns. ABDOMEN/PELVIS: --MUSCULOSKELETAL: Bones: Age appropriate degenerative changes of the spine. No suspicious bony lytic or sclerotic lesio ns. Small sclerotic area in the left greater trochanter. Follow-up advised. Superficial soft tissues:Bilateral fat containing inguinal areas larger on the left side. Otherwise, The superficial soft tissues are normal. --UPPER ABDOMINAL ORGANS: Liver: Mild fat infiltration. Gallbladder: Normal. Spleen: Normal. Stomach/duodenum: Normal. Pancreas: Normal. Adrenals: Small right adrenal adenoma is seen measuring 1.2 cm. Kidneys: Normal. --PELVIC ORGANS: The bladder is normal. No bladder stones. --BOWEL AND MESENTERY: Colon: Mild no evidence of diverticulitis.. Normal appendix. Small Bowel: Normal. No obstruction. Peritoneum/mesentery: No free air or free fluid. No mesenteric lymphadenopathy. --RETROPERITONEUM: Normal aorta. No retroperitoneal lymphadenopathy. IMPRESSION: CHEST: 1. No acute cardiopulmonary pathology. ABDOMEN/PELVIS: 1. No evidence of appendicitis, diverticulitis or intestinal obstruction. 2. Small right adrenal adenoma. No follow-up is advised unless clinically warranted. 3. Bilateral inguinal fat containing hernias Reviewed, dictated and finalized at location A. IMPRESSION: CHEST: 1. No acute cardiopulmonary pathology. ABDOMEN/PELVIS: 1. No evidence of appendicitis, diverticulitis or intestinal obstruction. 2. Small right adrenal adenoma. No follow-up is advised unless clinically edwige anted. 3. Bilateral inguinal fat containing hernias
--- NOTE | ~2024-06-14 | XR_ITS ---
XR chest 2V Ordering provider: Landon Ray MD History: 43 years Male with . CP TO LEFT SIDE . Comparison: May 27, 2022 FINDINGS: MEDIASTINUM: The cardiac silhouette is not enlarged. LUNGS: No infiltrates, effusions or pneumothorax. OTHER: No free air under the diaphragm. IMPRESSION: No acute cardiopulmonary pathology. Reviewed, dictated and finalized at location A.
--- NOTE | 2024-06-14 20:52 | ECG_ITS ---
Test Date: 2024-06-14 20:57:20 Measurements Intervals [place] Rate: 85 P: 38 ME: 138 QRS: -1 QRSD: 90 T: 43 QT: 326 QTc: 388 Interpretive Statements SINUS RHYTHM WITHIN NORMAL LIMITS Compared to ECG 05/04/2024 00:49:46 No significant changes Electronically Signed On 06-15-2024 09:48:32 CDT by Landon Echols M.D.
[2024-06-14 21:21] LABS: Basophils Absolute Auto 0.1 K/mm3 (0.0-0.1); Basophils Percent Auto 0.5 % (0.2-1.2); Eosinophils Percent Auto 0.3 % (0-4.4); Hematocrit 43.4 % (42.0-52.0); Hemoglobin 14.9 g/dL (14.0-18.0); Immature Granulocyte Absolute 0.34 K/mm3 (0.00-0.031); Immature Granulocyte Percent A 2.5 % (0-0.5); Lymphocytes Absolute Auto 2.66 K/mm3 (0.9-3.2); Lymphocytes Percent Auto 19.2 % (18.3-44.2); Mean Corpuscular HGB Conc 34.3 g/dl (32-36); Mean Corpuscular Hemoglobin 29.9 pg (26-34); Mean Corpuscular Volume 87.1 fl (80-100); Mean Platelet Volume 10.1 fl (7.4-10.4); Monocytes Absolute Auto 1.1 K/mm3 (0.1-0.6); Neutrophils Absolute Auto 9.6 K/mm3 (1.3-6.7); Neutrophils Percent Auto 69.5 % (45.5-73.1); Platelet Count Result 312 k/mm3 (150-375); Red Blood Count 4.98 M/mm3 (4.6-6.20); Red Cell Distribution Width 12.9 % (11.5-14.5); White Blood Count 13.8 K/mm3 (4.5-10.0)
[2024-06-14 21:32] LABS: Partial Thromboplastin Time 22.1 Seconds (22.3-36.8); Prothrombin Time 13.9 Seconds (11.1-14.7)
[2024-06-14 21:33] LABS: Alanine Aminotransferase 22 U/L (6-50); Albumin Level 4.6 g/dL (3.5-5.1); Alkaline Phosphatase 79 U/L (38-126); Anion Gap 9 mmol/L (4-12); Aspartate Amino Transferase 22 U/L (17-59); Bilirubin,Total 0.4 mg/dL (0.2-1.3); Blood Urea Nitrogen 20 mg/dL (9-20); Calcium 9.5 mg/dL (8.4-10.2); Carbon Dioxide 22 mmol/L (22-30); Chloride 108 mmol/L (98-107); Estimated CRCL calculation 122 ml/min; Estimated Glomerular Filt Rate > 60; Glucose 113 mg/dL (65-110); Lipase 81 U/L (23-300); Potassium 3.9 mmol/L (3.4-5.0); Sodium 139 mmol/L (137-145)
[2024-06-14 21:47] LABS: Troponin I < 0.012 ng/mL (0.000-0.034)
[2024-06-14] MEDS: SODIUM CHLORIDE 0.9% IV 1,000 ML 999 ML IV CONT (22:28)
[2024-06-14] MEDS: FAMOTIDINE 20 MG/2 ML VIAL IV PUSH (22:29)
[2024-06-14] MEDS: PANTOPRAZOLE SODIUM IV 40 MG VIAL IV PUSH (22:31)
--- NOTE | 2024-06-14 22:33 | ED.CHESTPAIN ---
HPI - Chest Pain General Chief Complaint: Chest Pain Stated Complaint: chest pain Time Seen by Provider: 06/14/24 21:25 History of Present Illness HPI narrative: Patient is 43-year-old male presents to the ER two weeks of diarrhea and a few days of non-specific left upper abdominal quadrant pain. He reports he has a history of hypertension, gastroesophageal reflux disorder, and diabetes. Patient reports he takes medication for his chronic conditions. He has no complaints of shortness of breath, urinary symptoms, one-sided weakness/tingling/numbness. Related Data Home Medications Medication Instructions Recorded Confirmed multivitamin (Daily Multi-Vitamin 1 tablet PO DAILY 10/22/20 06/10/24 tablet) Allergies Allergy/AdvReac Type Severity Reaction Status Date / Time peach Allergy Severe Swelling/HIVES/SEE Verified 06/10/24 09:56 COMMENT metoprolol AdvReac Severe bradycardia Verified 06/10/24 09:56 Review of Systems Review of Systems: All systems reviewed & are unremarkable except as noted in HPI and below PMFSH Past Medical History Medical History Chest pain Chest pain Dizziness Essential hypertension Frequent headaches : MRI brain, cervical, and thoracic spine as well as lumbar puncture with CSF studies all of which were negative, except he was positive for oligoclonal bands (in serum and CSF) and had elevated protein 90. He had been following with Dr. Billingsley and had an EMG/NCS which showed left ulnar neuropathy. Frozen shoulder Gastroesophageal reflux disease Hematemesis Hemifacial spasm of right side of face Hypersomnia Left ear hearing loss mild high frequency loss bilat Left shoulder pain USP use of drug Mixed hyperlipidemia Obesity Obstructive sleep apnea 2021 home sleep study: moderate obstructive sleep apnea 78%, loud frequent snoring? Recommendation: auto PAP with pressures between 5 cm and 16 cm with a comfortable mask and heated humidity.?He should also have all related equipment including tubing, filters and reservoir.? Follow up in 30-90 days. If not tolerating or not improving then will need cpap titration. ?? Peptic ulcer Snoring Surgical History Surgical History History of arthroscopy of right shoulder History of colonoscopy with polypectomy Family History Family History Grandparent Diabetes mellitus Carcinoma of colon Father Hypertension Baltazar syndrome Mother Family history of malignant neoplasm of breast in first degree relative Hypertension Other Colon polyp Social History Social History Social History: Surrogate medical decision maker: Shantel Tracey, spouse. Code status: Smoking packs per day: 0.25 Smoking cigarettes per day: 5.0 Years smoked: 2 Smoking pack-years: 0.50 Smoking status: Former smoker Tobacco type: cigarettes Second hand tobacco smoke exposure: No Alcohol intake: current Alcohol use details: Rarely Substance use: never Substance use type: does not use Do You Feel Safe in your Home?: Yes Lack of Transportation: No Lack of Food: Never True Current Housing: I Have Housing Concerned About Future Housing: No Difficulty Paying Gas/Electric Bills: No Difficulty Paying for Meds: No Currently Unemployed: No Education: High School Diploma/GED Difficulty w/ Childcare or Family Care: No Living arrangements: with family Additional living arrangements comments: The patient lives with his and 2 children. 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 Spiritual care concerns: No Exam Narrative: GENERAL: Well appearing, well-nourished, non-toxic, in no acute distress. HEAD: Normocephalic, atraumatic.
[2024-06-15 00:35] VITALS: BP 118/88; PULSE 72; RESP 16; TEMP 36.6; O2SAT 99
[2024-06-15] MEDS: BELLADONNA ALK/PHENOB ELIX 10 ML, MAG HYDROX/ALUMINUM HYD/SIMETH 30 ML, LIDOCAINE HCL 2... PO (00:38)
[2024-06-15 00:39] VITALS: BP 118/88; PULSE 80; RESP 16; O2SAT 99
--- NOTE | 2024-06-15 00:48 | PC.NURSE ---
Pt points to left upper abd quad for pain location. Rates pain 3-4. Resting with no distress noted.
[2024-06-15 01:01] VITALS: BP 132/83; PULSE 74; RESP 16; TEMP 36.6; O2SAT 97
[2024-06-15 01:31] VITALS: BP 118/88; PULSE 68; RESP 15; O2SAT 97
[2024-06-15 02:01] VITALS: BP 127/84; PULSE 66; RESP 16; TEMP 36.6; O2SAT 98
== END 2024-06-15 02:25 | disposition home or self-care (01) ==
PROVIDERS: Emergency Medicine; Emergency Provider Registered Nurse; PCP Family Medicine
DX: K21.9 Gastro-esophageal reflux disease without esophagitis (principal); I10 Essential (primary) hypertension; E11.9 Type 2 diabetes mellitus without complications; E78.2 Mixed hyperlipidemia; G47.33 Obstructive sleep apnea (adult) (pediatric); Z87.891 Personal history of nicotine dependence; D35.01 Benign neoplasm of right adrenal gland; K40.20 Bilateral inguinal hernia, without obstruction or gangrene, not specified as recurrent
CPT/HCPCS: 36415; 71046; 71260; 74177; 80053; 83605; 83690; 84484; 85025; 85610; 85730; 93005; 96361; 96374; 96375; 99284; A9270; J2470; J7030; Q9967

== ENCOUNTER 2024-07-16 00:21 | Day surgery (SDC) | payer OTHER, SELFPAY ==
[2024-07-09 10:39] VITALS: BMI 37.4
[2024-07-16 11:09] VITALS: BP 138/81; PULSE 91; RESP 18; TEMP 37.1; O2SAT 99
[2024-07-16] MEDS: LACTATED RINGERS 1,000 ML 150 ML IV CONT (11:22)
--- NOTE | 2024-07-16 11:51 | P.PNAN_ITS ---
Anes - Initial Pre Proc Eval Procedure: Operation Date: 07/16/24 12:30 Proposed Procedures p Esophagogastroduodenoscopy - Héctor Blandon MD Date/Time: 07/16/24 11:51 Surgeon: Héctor Blandon MD Pre Op Diagnosis: GERD w/o bleeding Patient Data Age: 43 Gender: M Height: 1.7 m Weight: 107.3 kg Last Vital Signs Temp 98.7 F 07/16/24 11:09 Pulse 91 07/16/24 11:09 Resp 18 07/16/24 11:09 BP 138/81 07/16/24 11:09 Pulse Ox 99 07/16/24 11:09 O2 Del Method Room Air 07/16/24 11:09 Allergies Allergy/AdvReac Type Severity Reaction Status Date / Time peach Allergy Severe Swelling/HIVES/SEE Verified 07/16/24 11:07 COMMENT metoprolol AdvReac Severe bradycardia Verified 07/16/24 11:07 Home Medications Medication Instructions Recorded Confirmed Type multivitamin (Daily Multi-Vitamin 1 tablet PO DAILY 10/22/20 07/16/24 History tablet) Autopap #1 ea 09/09/22 06/26/24 Rx atorvastatin 10 mg tablet 10 mg PO DAILY #90 tabs 03/05/24 07/16/24 Rx topiramate 50 mg tablet (Topamax) 50 mg PO BID #180 tabs 03/19/24 07/16/24 Rx amlodipine 5 mg tablet 5 mg PO DAILY #90 tabs 04/05/24 07/16/24 Rx losartan 50 mg tablet 50 mg PO DAILY #90 tabs 04/05/24 07/16/24 Rx famotidine 40 mg tablet (Pepcid) 40 mg PO DAILY GERD #14 tabs 06/15/24 07/16/24 Rx omeprazole 40 mg capsule,delayed 40 mg PO BID #28 caps 06/15/24 07/16/24 Rx release sucralfate 1 gram tablet 1 g PO .COMPLEX #60 tabs 06/26/24 07/16/24 Rx Patient hx anesthesia problems: none Family hx anesthesia problems: none Results Review: All pre-operative results and documents have been reviewed as part of the pre- operative evaluation. FORMERLY [facility] Past Medical History Medical History Chest pain Chest pain Dizziness Essential hypertension Frequent headaches : MRI brain, cervical, and thoracic spine as well as lumbar puncture with CSF studies all of which were negative, except he was positive for oligoclonal bands (in serum and CSF) and had elevated protein 90. He had been following with Dr. Billingsley and had an EMG/NCS which showed left ulnar neuropathy. Frozen shoulder Gastroesophageal reflux disease Hematemesis Hemifacial spasm of right side of face Hepatic steatosis ct 06.14.24 Hypersomnia Left ear hearing loss mild high frequency loss bilat Left shoulder pain FDC use of drug Mixed hyperlipidemia Obesity Obstructive sleep apnea 2021 home sleep study: moderate obstructive sleep apnea 78%, loud frequent snoring? Recommendation: auto PAP with pressures between 5 cm and 16 cm with a comfortable mask and heated humidity.?He should also have all related equipment including tubing, filters and reservoir.? Follow up in 30-90 days. If not tolerating or not improving then will need cpap titration. ?? Peptic ulcer Snoring Surgical History Surgical History History of arthroscopy of right shoulder History of colonoscopy with polypectomy Family History Family History Grandparent Diabetes mellitus Carcinoma of colon Father Hypertension Baltazar syndrome Mother Family history of malignant neoplasm of breast in first degree relative Hypertension Other Colon polyp Social History Social History Social History: Surrogate medical decision maker: Shantel Tracey, spouse. Code status: Smoking packs per day: 0.25 Smoking cigarettes per day: 5.0 Years smoked: 2 Smoking pack-years: 0.50 Smoking status: Never smoker Tobacco type: cigarettes Second hand tobacco smoke exposure: No Alcohol intake: current Alcohol use details: Rarely Substance use: never Substance use type: does not use Do You Feel Safe in your Home?: Yes Lack of Transportation: No Lack of Food: Never True Current Housing: I Have Housing Concerned About Future Housing: No Difficulty Paying Gas/Electric Bills: No Difficulty Paying for Meds: No Currently Unemployed: No Education: High School Diploma/GED Difficulty w/ Childcare or Family Care: No Living arrangements: alone Additional living arrangements comments: The patient lives with his and 2 children. 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 Spiritual care concerns: No Anes - Eval Final PreProcedure Day of Procedure 07/16/24 11:51 Patient weight: obese Heart: regular rate and rhythm Lungs: clear to auscultation Airway: Mallampati scale and special considerations (Upper incisors w small chips. Missing R upper tooth. ) Neurological: alert and oriented Last oral intake: >/= 8 hours ASA classification: II Emergent: no Anesthetic plan: proceed Anesthesia type and monitoring: general GIVS and standard monitoring Results Review: All pre-operative results and documents have been reviewed as part of the pre-operative evaluation. HTN, hyperlipidemia. Informed Consent: The patient's anesthetic plan and its attendant risks and benefits were discussed with the patient/family/POA. Questions were solicited and answers provided to the satisfaction of the patient/family/POA.
--- NOTE | 2024-07-16 12:19 | P.HP_ITS ---
H&P: HPI History of Present Illness Date/Time: 07/16/24 12:19 Chief Complaint: Noncardiac chest pain Narrative: the patient has been Experiencing a severe crushing type chest pain whenever he eats or drinks cold items. he denies dysphagia or heartburn. He is referred for EGD. Review of Systems Review of Systems: All systems reviewed & are unremarkable except as noted in HPI and below PMFSH Past Medical History Medical History Chest pain Chest pain Dizziness Essential hypertension Frequent headaches : MRI brain, cervical, and thoracic spine as well as lumbar puncture with CSF studies all of which were negative, except he was positive for oligoclonal bands (in serum and CSF) and had elevated protein 90. He had been following with Dr. Billingsley and had an EMG/NCS which showed left ulnar neuropathy. 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 Recommendation: auto PAP with pressures between 5 cm and 16 cm with a comfortable mask and heated humidity.?He should also have all related equipment including tubing, filters and reservoir.? Follow up in 30-90 days. If not tolerating or not improving then will need cpap titration. ?? Peptic ulcer Snoring Surgical History Surgical History History of arthroscopy of right shoulder History of colonoscopy with polypectomy Family History Family History Grandparent Diabetes mellitus Carcinoma of colon Father Hypertension Baltazar syndrome Mother Family history of malignant neoplasm of breast in first degree relative Hypertension Other Colon polyp Social History Social History Social History: Surrogate medical decision maker: Shantel Tracey, spouse. Code status: Smoking packs per day: 0.25 Smoking cigarettes per day: 5.0 Years smoked: 2 Smoking pack-years: 0.50 Smoking status: Never smoker Tobacco type: cigarettes Second hand tobacco smoke exposure: No Alcohol intake: current Alcohol use details: Rarely Substance use: never Substance use type: does not use Do You Feel Safe in your Home?: Yes Lack of Transportation: No Lack of Food: Never True Current Housing: I Have Housing Concerned About Future Housing: No Difficulty Paying Gas/Electric Bills: No Difficulty Paying for Meds: No Currently Unemployed: No Education: High School Diploma/GED Difficulty w/ Childcare or Family Care: No Living arrangements: alone Additional living arrangements comments: The patient lives with his and 2 children. 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 Spiritual care concerns: No Meds Home Medications and Allergies Home Medications Medication Instructions Recorded Confirmed Type multivitamin (Daily Multi-Vitamin 1 tablet PO DAILY 10/22/20 07/16/24 History tablet) Autopap #1 ea 09/09/22 06/26/24 Rx atorvastatin 10 mg tablet 10 mg PO DAILY #90 tabs 03/05/24 07/16/24 Rx topiramate 50 mg tablet (Topamax) 50 mg PO BID #180 tabs 03/19/24 07/16/24 Rx amlodipine 5 mg tablet 5 mg PO DAILY #90 tabs 04/05/24 07/16/24 Rx losartan 50 mg tablet 50 mg PO DAILY #90 tabs 04/05/24 07/16/24 Rx famotidine 40 mg tablet (Pepcid) 40 mg PO DAILY GERD #14 tabs 06/15/24 07/16/24 Rx omeprazole 40 mg capsule,delayed 40 mg PO BID #28 caps 06/15/24 07/16/24 Rx release sucralfate 1 gram tablet 1 g PO .COMPLEX #60 tabs 06/26/24 07/16/24 Rx Allergies Allergy/AdvReac Type Severity Reaction Status Date / Time peach Allergy Severe Swelling/HIVES/SEE Verified 07/16/24 11:07 COMMENT metoprolol AdvReac Severe bradycardia Verified 07/16/24 11:07 Vital Signs Vital Signs - 24 hr 07/16/24 11:09 Temperature 98.7 F Pulse Rate 91 Respiratory Rate 18 Blood Pressure 138/81 Pulse Oximetry 99 Oxygen Delivery Room Air Exam Const: General: cooperative and healthy appearing Resp: Effort & Inspection: normal respiratory effort and able to speak in complete sentences Auscultation: clear to auscultation bilaterally Cardio: Rate: regular rate Rhythm: regular rhythm GI: Inspection: normal to inspection GI Palp: No No hepatosplenomegaly present Auscultation: normal bowel sounds Rectal Exam: deferred Skin: General skin exam: normal color Psych: Appearance: grossly normal Mental Status: mental status grossly normal Assessment and Plan Assessment and plan (1) Non-cardiac chest pain: Code(s): R07.89 - Other chest pain Status: Acute Assessment and Plan: The patient is deemed a good candidate for the procedure. Consent signed. Will proceed.
[2024-07-16 12:38] VITALS: BP 104/60; PULSE 90; RESP 20; O2SAT 97
[2024-07-16 12:48] VITALS: BP 116/63; PULSE 84; RESP 20; O2SAT 98
[2024-07-16 12:58] VITALS: BP 115/69; PULSE 82; RESP 18; O2SAT 99
== END 2024-07-16 13:10 | disposition home or self-care (01) ==
PROVIDERS: PCP Family Medicine; Visit Provider Internal Medicine Gastroenterology
PROC: 0DJ08ZZ Inspection of Upper Intestinal Tract, Via Natural or Artificial Opening Endoscopic (ICD-10-PCS; CPT 43235; principal; 2024-07-16 12:30)
DX: K31.84 Gastroparesis (principal); K21.9 Gastro-esophageal reflux disease without esophagitis; I10 Essential (primary) hypertension; G47.10 Hypersomnia, unspecified; E78.2 Mixed hyperlipidemia; G47.33 Obstructive sleep apnea (adult) (pediatric); E66.9 Obesity, unspecified; Z68.37 Body mass index [BMI] 37.0-37.9, adult; Z99.89 Dependence on other enabling machines and devices; Z79.899 Other long term (current) drug therapy; Z98.890 Other specified postprocedural states; Z87.891 Personal history of nicotine dependence; Z80.0 Family history of malignant neoplasm of digestive organs; Z80.3 Family history of malignant neoplasm of breast
CPT/HCPCS: 43239; 88305; J2003; J2704; J7120

== ENCOUNTER 2024-08-03 20:07 | Emergency (ER) | payer OTHER, SELFPAY ==
--- NOTE | ~2024-08-03 | CT_ITS ---
EXAMINATION: CT abdomen pelvis w con DATE: 08/04/2024 05:03 INDICATION: Right upper quadrant abdominal pain. TECHNIQUE: Computed tomography (CT) of the abdomen and pelvis was performed with 100 mL Omnipaque 350 intravenous contrast. Automated exposure control and iterative reconstruction technique were employe d. The dose-length product was 1498.47 mGy-cm. COMPARISON: CT abdomen and pelvis 06/14/2024 FINDINGS: The visualized portions of the lung bases demonstrate mild atelectasis. No pleural effusion . The heart size is normal. No pericardial effusion. The liver, gallbladder, spleen, pancreas, and le ft adrenal gland are normal. There is 11 mm mass in right adrenal gland, likely an adenoma. There is a 6 mm cyst in right kidney. Left kidney is normal. There are bilateral inguinal hernias containing f at. The appendix is normal. There are no dilated loops of bowel. There are no pathologically enlarged lymph nodes. There is no ascites. There is moderate lower lumbar spondylosis. There is a benign bone island in proximal left femur. IMPRESSION: 1. Bilateral inguinal hernias containing fat. Reviewed, dictated and finalized at location A. HOME TUTOR
[2024-08-03 20:22] VITALS: BP 164/98; PULSE 106; RESP 15; TEMP 36.3; O2SAT 100
[2024-08-04] VITALS (25 sets, daily range): BP systolic 114–138; BP diastolic 70–96; PULSE 79–92; RESP 17–20; TEMP 36.4; O2SAT 95–100
[2024-08-04 01:51] LABS: Basophils Absolute Auto 0.1 K/mm3 (0.0-0.1); Basophils Percent Auto 0.6 % (0.2-1.2); Eosinophils Absolute Auto 0.2 K/mm3 (0-0.3); Eosinophils Percent Auto 1.9 % (0-4.4); Hematocrit 44.9 % (42.0-52.0); Hemoglobin 15.1 g/dL (14.0-18.0); Immature Granulocyte Absolute 0.08 K/mm3 (0.00-0.031); Immature Granulocyte Percent A 0.8 % (0-0.5); Lymphocytes Absolute Auto 2.47 K/mm3 (0.9-3.2); Lymphocytes Percent Auto 24.7 % (18.3-44.2); Mean Corpuscular HGB Conc 33.6 g/dl (32-36); Mean Corpuscular Hemoglobin 29.1 pg (26-34); Mean Corpuscular Volume 86.5 fl (80-100); Mean Platelet Volume 9.8 fl (7.4-10.4); Monocytes Absolute Auto 0.8 K/mm3 (0.1-0.6); Monocytes Percent Auto 7.8 % (2.6-8.5); Neutrophils Absolute Auto 6.4 K/mm3 (1.3-6.7); Neutrophils Percent Auto 64.2 % (45.5-73.1); Platelet Count Result 275 k/mm3 (150-375); Red Blood Count 5.19 M/mm3 (4.6-6.20)
[2024-08-04 02:06] LABS: Alanine Aminotransferase 31 U/L (6-50); Albumin Level 4.3 g/dL (3.5-5.1); Alkaline Phosphatase 92 U/L (38-126); Anion Gap 6 mmol/L (4-12); Aspartate Amino Transferase 27 U/L (17-59); Bilirubin,Total 0.4 mg/dL (0.2-1.3); Blood Urea Nitrogen 15 mg/dL (9-20); Calcium 9.2 mg/dL (8.4-10.2); Carbon Dioxide 25 mmol/L (22-30); Chloride 110 mmol/L (98-107); Estimated CRCL calculation 109 ml/min; Estimated Glomerular Filt Rate > 60; Glucose 100 mg/dL (65-110); Lipase 60 U/L (23-300); Potassium 3.9 mmol/L (3.4-5.0); Sodium 141 mmol/L (137-145)
[2024-08-04] MEDS: KETOROLAC 15 MG/ML VIAL (*BKC) IV PUSH (03:11)
[2024-08-04 04:16] LABS: Add Urine Microscopic? NO; Appearance Urine Clear (Clear); Bilirubin Urine Negative (Negative); Blood Urine Negative (Negative); Color Urine Yellow (Yellow); Glucose Urine UA Negative (Negative); Ketones Urine Negative (Negative); Leukocyte Esterase Ur Negative LEU/UL (Negative); Nitrate Urine Negative (Negative); Protein Urine Negative (Negative); Specific Grav Ur 1.025 (1.001-1.035); pH Urine 5.5 (5.0-9.0)
--- NOTE | 2024-08-04 04:54 | PC.NURSE ---
Patient being taken to CT at this time.
--- NOTE | 2024-08-04 06:45 | ED.GENADULT ---
HPI - General Adult General Chief complaint: Abdominal Pain Stated complaint: R abdominal pain Time Seen by Provider: 08/04/24 02:01 History of Present Illness HPI narrative: This is a 43-year-old male presenting ED with chief complaint of abdominal pain. Patient says that starting 4:30 a.m. developed a sharp pain in the right upper quadrant radiates to his back. 6/10 intensity and constant. He has never had pain like this before there are no exacerbating alleviating symptoms. It is not associated with fevers chills nausea vomiting diarrhea chest pain difficulty breathing. Related Data Home Medications Medication Instructions Recorded Confirmed multivitamin (Daily Multi-Vitamin 1 tablet PO DAILY 10/22/20 07/16/24 tablet) Allergies Allergy/AdvReac Type Severity Reaction Status Date / Time peach Allergy Severe Swelling/HIVES/SEE Verified 08/04/24 01:44 COMMENT metoprolol AdvReac Severe bradycardia Verified 08/04/24 01:44 [facility] Past Medical History Medical History Chest pain Chest pain Dizziness Essential hypertension Frequent headaches : MRI brain, cervical, and thoracic spine as well as lumbar puncture with CSF studies all of which were negative, except he was positive for oligoclonal bands (in serum and CSF) and had elevated protein 90. He had been following with Dr. Billingsley and had an EMG/NCS which showed left ulnar neuropathy. 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 Recommendation: auto PAP with pressures between 5 cm and 16 cm with a comfortable mask and heated humidity.?He should also have all related equipment including tubing, filters and reservoir.? Follow up in 30-90 days. If not tolerating or not improving then will need cpap titration. ?? Peptic ulcer Snoring Surgical History Surgical History History of arthroscopy of right shoulder History of colonoscopy with polypectomy Family History Family History Grandparent Diabetes mellitus Carcinoma of colon Father Hypertension Baltazar syndrome Mother Family history of malignant neoplasm of breast in first degree relative Hypertension Other Colon polyp Social History Social History Social History: Surrogate medical decision maker: Shantel Tracey, spouse. Code status: Smoking packs per day: 0.25 Smoking cigarettes per day: 5.0 Years smoked: 2 Smoking pack-years: 0.50 Smoking status: Never smoker Tobacco type: cigarettes Second hand tobacco smoke exposure: No Alcohol intake: current Alcohol use details: Rarely Substance use: never Substance use type: does not use Do You Feel Safe in your Home?: Yes Lack of Transportation: No Lack of Food: Never True Current Housing: I Have Housing Concerned About Future Housing: No Difficulty Paying Gas/Electric Bills: No Difficulty Paying for Meds: No Currently Unemployed: No Education: High School Diploma/GED Difficulty w/ Childcare or Family Care: No Living arrangements: alone Additional living arrangements comments: The patient lives with his and 2 children. 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 Spiritual care concerns: No Exam Narrative: APPEARANCE: No apparent distress. Head: atraumatic. EYES: EOMI, NOSE: Atraumatic NECK: Trachea midline RESPIRATORY: No increased rate of breathing , clear to auscultation CARDIOVASCULAR: RRR, no peripheral edema ABDOMINAL: Non-distended soft nontender no guarding rebound MUSCULOSKELETAl: No obvious deformities NEURO: Alert. Moving 4/4 extremities SKIN:: Warm, dry. Normal color PSYCHIATRIC: Normal affect Course Vital Signs Vital signs: Vital Signs Temperature 97.4 F L 08/03/24 20:22 Pulse Rate 106 H 08/03/24 20:22 Respiratory Rate 15 08/03/24 20:22 Blood Pressure 164/98 H 08/03/24 20:22 Pulse Oximetry 100 08/03/24 20:22 Oxygen Delivery Room Air 08/03/24 20:22 Temperature 97.6 F 08/04/24 01:45 Pulse Rate 92 08/04/24 06:04 Respiratory Rate 20 08/04/24 06:04 Blood Pressure 138/77 08/04/24 06:04 Pulse Oximetry 100 08/04/24 06:04 Oxygen Delivery Room Air 08/03/24 20:22 Medical Decision Making MDM Narrative Medical decision making narrative: -Course: 43-year-old male presenting with right-sided abdominal pain. Laboratory studies within normal limits. CT abdomen pelvis without causative findings. Patient was informed with the results. He is instructed to trial a course of Motrin Tylenol and follow up with primary care physician. Given return precautions for fevers, worsening abdominal pain or intractable nausea vomiting. -DDX includes but is not limited to: Gallbladder disease, pneumonia, colitis, appendicitis enteric colitis, shingles, pancreatitis -Independent interpretation of studies: labs and imaging reviewed -Interventions: Toradol -Shared decision making / Disposition: discharge -RX Motrin Tylenol Vital Signs Vital Signs: Vital Signs Temperature 97.4 F L 08/03/24 20:22 Pulse Rate 106 H 08/03/24 20:22 Respiratory Rate 15 08/03/24 20:22 Blood Pressure 164/98 H 08/03/24 20:22 Pulse Oximetry 100 08/03/24 20:22 Oxygen Delivery Room Air 08/03/24 20:22 Temperature 97.6 F 08/04/24 01:45 Pulse Rate 92 08/04/24 06:04 Respiratory Rate 20 08/04/24 06:04 Blood Pressure 138/77 08/04/24 06:04 Pulse Oximetry 100 08/04/24 06:04 Oxygen Delivery Room Air 08/03/24 20:22 Lab Data 08/04/24 01:46 08/04/24 01:46 Labs: Lab Results 08/04/24 08/04/24 Range/Units 01:46 04:09 WBC 10.0 (4.5-10.0) K/mm3 RBC 5.19 (4.6-6.20) M/mm3 Hgb 15.1 (14.0-18.0) g/dL Hct 44.9 (42.0-52.0) % MCV 86.5 (80-100) fl MCH 29.1 (26-34) pg MCHC 33.6 (32-36) g/dl RDW 13.0 (11.5-14.5) % Plt Count 275 (150-375) k/mm3 MPV 9.8 (7.4-10.4) fl Immature Gran % (Auto) 0.8 H (0-0.5) % Neut % (Auto) 64.2 (45.5-73.1) % Lymph % (Auto) 24.7 (18.3-44.2) % [place] % (Auto) 7.8 (2.6-8.5) % Eos % (Auto) 1.9 (0-4.4) % Baso % (Auto) 0.6 (0.2-1.2) % Lymph # (Auto) 2.47 (0.9-3.2) K/mm3 [place] # (Auto) 0.8 H (0.1-0.6) K/mm3 Eos # (Auto) 0.2 (0-0.3) K/mm3 Baso # (Auto) 0.1 (0.0-0.1) K/mm3 Abs Immat Gran (auto) 0.08 H (0.00-0.031) K/mm3 Absolute Neuts (auto) 6.4 (1.3-6.7) K/mm3 Absolute Nucleated RBC 0.000 (0.0-0.012) K/mm3 Nucleated RBC % 0.0 (0.0-0.2) % Sodium 141 (137-145) mmol/L Potassium 3.9 (3.4-5.0) mmol/L Chloride 110 H (98-107) mmol/L Carbon Dioxide 25 (22-30) mmol/L Anion Gap 6 (4-12) mmol/L BUN 15 D (9-20) mg/dL Creatinine 0.90 (0.7-1.3) mg/dL Estim Creat Clear Calc 109 ml/min Estimated GFR > 60 (59 - ) Glucose 100 (65-110) mg/dL Calcium 9.2 (8.4-10.2) mg/dL Total Bilirubin 0.4 (0.2-1.3) mg/dL AST 27 (17-59) U/L ALT 31 (6-50) U/L Alkaline Phosphatase 92 (38-126) U/L Total Protein 7.0 (6.3-8.2) g/dL Albumin 4.3 (3.5-5.1) g/dL Lipase 60 (23-300) U/L Urine Color Yellow (Yellow) Urine Appearance Clear (Clear) Urine pH 5.5 (5.0-9.0) Ur Specific Veteran 1.025 (1.001-1.035) Urine Protein Negative (Negative) mg/dL Urine Glucose (UA) Negative (Negative) mg/dL Urine Ketones Negative (Negative) mg/dL Ur Blood (Man) Negative (Negative) Urine Nitrate Negative (Negative) Urine Bilirubin Negative (Negative) Urine Urobilinogen 1.0 (<2.0) mg/dL Leukocyte Esterase Rfl Negative (Negative) KAYLEE/UL Discharge Plan Discharge Clinical Impression: Abdominal pain, RUQ Patient Disposition: Home, Self-Care Condition: Stable Instructions: Antibiotic Form, Abdominal Pain (ED) Additional Instructions: please take Motrin and Tylenol [id number] as needed for pain. Please follow-up with your primary care physician for further management. If you develop fevers severe pain, intractable nausea vomiting or any new or worsening symptoms please return to the ED for re-evaluation. Prescriptions: No Action multivitamin [Daily Multi-Vitamin] Tablet 1 tablet PO DAILY omeprazole 40 mg capsule,delayed release(DR/EC) 40 mg PO BID Qty: 28 0RF famotidine [Pepcid] 40 mg tablet 40 mg PO DAILY Qty: 14 0RF (DME) Autopap See Rx Instructions .Route .MEDSUPPLY Qty: 1 0RF Rx Instructions: 2021 home sleep study: shows moderate obstructive sleep apnea, the apnea-hypopnea index is 15.5 with desaturation to 78%, loud frequent snoring and 9.1 minutes or 2.4% the night spent below 88%.? ? Recommendation: auto PAP with pressures between 5 cm and 16 cm with a comfortable mask and heated humidity.?He should also have all related equipment including tubing, filters and reservoir.? Follow up in 30-90 days. If not tolerating or not improving then will need cpap titration. ?? atorvastatin 10 mg tablet 10 mg PO DAILY Qty: 90 1RF topiramate [Topamax] 50 mg tablet 50 mg PO BID Qty: 180 2RF losartan 50 mg tablet 50 mg PO DAILY Qty: 90 3RF amlodipine 5 mg tablet 5 mg PO DAILY Qty: 90 3RF sucralfate 1 gram tablet See Rx Instructions .ROUTE .COMPLEX Qty: 60 0RF Dose Instruction: TAKE 1 TABLET BY MOUTH BEFORE MEAL(S) AND 1 AT BEDTIME UP TO 4 TIMES DAILY. Rx Instructions: TAKE 1 TABLET BY MOUTH BEFORE MEAL(S) AND 1 AT BEDTIME UP TO 4 TIMES DAILY. Follow-up/Referrals: Jodie Frankel MD [Primary Care Provider] - 1 Week (abdominal pain )
== END 2024-08-04 07:03 | disposition home or self-care (01) ==
PROVIDERS: Emergency Provider Emergency Medicine; PCP Family Medicine
DX: R10.11 Right upper quadrant pain (principal); I10 Essential (primary) hypertension; E78.2 Mixed hyperlipidemia; E66.9 Obesity, unspecified; Z68.38 Body mass index [BMI] 38.0-38.9, adult; G47.33 Obstructive sleep apnea (adult) (pediatric); K21.9 Gastro-esophageal reflux disease without esophagitis; F17.210 Nicotine dependence, cigarettes, uncomplicated; Z87.11 Personal history of peptic ulcer disease; Z86.0100 Personal history of colon polyps, unspecified
CPT/HCPCS: 36415; 74177; 80053; 81003; 83690; 85025; 96374; 99284; J1885; Q9967

== ENCOUNTER 2024-09-12 07:17 | Outpatient (CLI) | payer OTHER, SELFPAY ==
--- NOTE | ~2024-09-12 | NM_ITS ---
EXAM: NM gastric emptying study DATE: 09/12/2024 12:09 INDICATION: Retained food. TECHNIQUE: A gastric emptying study was performed using the methodology of Rusty STANFORD, et al. J Nucl Med 2007; 48:568-572. The patient was given a meal consisting of 2 scrambled eggs labeled with 1.059 mCi Tc-99m sulfur colloid, 2 slices of toast, two packages of jam, and approximately 120 mL of water . Simultaneous anterior and posterior 1-min images of the abdomen were obtained with the patient supi ne at multiple time points over a total period of 4 hours. The geometric mean of anterior and posteri or views was determined, and the percentage retention was calculated for each time point. COMPARISON: CT abdomen and pelvis 08/04/2024 FINDINGS: Gastric retention of the radiotracer-labeled meal was 70%, 47%, and 12% at the 1-hour, 2-h our, and 4-hour time points, respectively. With this technique, apparent rapid gastric emptying is gibbs ggested by <30% gastric retention at 1 hour. Delayed gastric emptying is defined by gastric retention of >90% at 1 hour, >60% retention at 2 hours, or >10% retention at 4 hours. IMPRESSION: 1. Delayed gastric emptying. Reviewed, dictated and finalized at location A. IECE CHOPPER
--- OUTSIDE RECORDS SUMMARY | 2024-09-19 00:58 | XMS_ITS | Clinical Summary ---
Author Organization [facility] Address [address] [place] [address] Care Team Providers Care Sewer Cleaner Name Role Phone Max Mccall MD Primary Care Provider [phone] Source Comments [facility],non-owned Affiliates and Associated Physician Practices is amultiple site organization consisting of ambulatory clinics and hospital sitesin [place], [place], [place] and [place]. This disclosure is being madepursuant to the Care Everywhere program and may not contain all information available regarding this patient. Last updated 18.[facility] Allergies Active Allergy Reactions Criticality Noted Date Comments Food Anaphylaxis High 07/10/2021 peaches Medications * Be aware that medications may not be up to date on this document. Alwaysverify current medications with the patient. Medication Sig Dispensed Refills Start Date End Date Status metoprolol succinate XL 24hr (TOPROL XL) 100 MG tablet Take 1 tablet by mouth every morning 06/23/2021 Active omeprazole (PRILOSEC) 40 MG capsule Take 1 capsule by mouth every morning 05/17/2021 Active traMADol (ULTRAM) 50 MG tablet Take 1 (one) tablet by mouth every 6 hours as needed for Pain 12 tablet 07/10/2021 Active Social History Tobacco Use Types Packs/Day Years Used Date Smoking Tobacco: Former Smokeless Tobacco: Never AUDIT-C Answer Date Recorded Q1: How often do you have a drink containing alc ohol? Monthly or less 07/10/2021 Average Number of Drinks Not on file 021 Frequency of Binge Drinking Not on file 06/28 Sex and Gender Information Value Date Recorded Sex Assigned at Not on file Gender Identity Not on file Sexual Orientation Not on file Last Filed Vital Signs Vital Sign Reading Time Taken Comments Blood Pressure 169/100 07/10/2021 10:49 AM TRACK RIDER Pulse 89 07/10/2021 10:49 AM TRACK RIDER Temperature 36.6 ??C (97.9 ??F) 07/10/2021 10:[address] Respiratory Rate 17 07/10/2021 10:49 AM TRACK RIDER Oxygen Saturation 97% 07/10/2021 10:49 AM TRACK RIDER Inhaled Oxygen Concentration - - Weight 108 kg (238 lb) 09/14/2021 2:59 PM TRACK RIDER Height 170.2 cm (5' 7 ) 09/14/2021 2:59 PM TRACK RIDER Body Mass Index 37.28 09/14/2021 2:59 PM TRACK RIDER Plan of Treatment Health Maintenance Due Date Last Done Comments LIPID TESTING 1982 HIV SCREENING 1997 HEPATITIS C SCREENING 11/24/2000 DTAP/TDAP/TD VACCINES (1 - Tdap) 2001 HEPATITIS B VACCINE (1 of 3 - 19+ 3-dose series) 2001 COVID-19 VACCINE ( - 2023-2 5 season) 2024 INFLUENZA VACCINE (#1) 2024 DEPRESSION SCREENING 08/28/2024 ZOSTER VACCINE (1 of 2) 2032 HIB VACCINE Aged Out No longer eligi ble based on patient's age to complete this topic HPV VACCINE Aged Out No longer eligi ble based on patient's age to complete this topic MENINGOCOCCAL (Group B) VACCINE Aged Out No longer eligible based on patient's age to complete this topic MENINGOCOCCAL VACCINE Aged Out No michael giuseppe eligible based on patient's age to complete this topic PNEUMOCOCCAL VACCINE Aged Out No long er eligible based on patient's age to complete this topic Care Teams Sewer Cleaner Relationship Specialty Start Date End Date Max Mccall MD [address] [place], [place] [id number] PCP - General Family Medicine 07/10/21
--- OUTSIDE RECORDS SUMMARY | 2024-09-19 00:58 | XMS_ITS | Referral Summary ---
Author Organization [facility] Address [address] [place] [address] Care Team Providers Care Range Ecologist Name Role Phone Mxa Mccall MD Primary Care Provider [phone] [facility],non-owned Affiliates and Associated Physician Practices is amultiple site organization consisting of ambulatory clinics and hospital sitesin [place], [place], [place] and [place]. This disclosure is being madepursuant to the Care Everywhere program and may not contain all information available regarding this patient. Last updated 18.[facility] Allergies Active Allergy Reactions Criticality Noted Date [...] Comments Blood Pressure 169/100 07/10/2021 10:49 AM CONCRETE BLOCK [facility]ON Pulse 89 07/10/2021 10:49 AM CONCR[employer]E [employer] [facility] Temperature 36.6 ??C (97.9 ??F) 07/10/2021 10:[address] Respiratory Rate 17 07/10/2021 10:49 AM CONCRETE BLOCK [place] Oxygen Saturation 97% 07/10/2021 10:49 AM CONCRETE BLOCK [facility] Inhaled Oxygen Concentration - - Weight 108 kg (238 lb) 09/14/2021 2:59 PM CONCRETE BLOCK [employer]ON Height 170.2 cm (5' 7 ) 09/14/2021 2:59 PM CONCRETE [employer] [facility] Body Mass Index 37.28 09/14/2021 2:59 PM CONCRETE [employer] [place] Plan of Treatment Not on file Insurance Payer Benefit Plan / Group Subscriber ID Effective Dates Phone Address Type WC PAYOR GENERIC WC GENERIC [id number] 2021-Pre sent [id number] [address] [address] [place] [address] Worker's Comp AETNA AETNA PPO/POS/OA [id number] 2019-Prese nt [address] [place] [address] PPO SELF PAY NO INSURANCE SELF PAY NO INSURANCE Effective for all dates [place], [place] Self Pay AETNA AETNA PPO/POS/OA [id number] 2019-Pres ent [address] [place] [phone] PPO Care Teams Range Ecologist Relationship Specialty Start Date End Date Max Mccall MD [address] [place] [id number] PCP - General Family Medicine 07/10/21
--- OUTSIDE RECORDS SUMMARY | 2024-09-19 00:58 | XMS_ITS | Clinical Summary ---
Author Organization [facility] Address [address] [place] [address]. [place], [place] [id number] [place] [id number] Care Team Providers Care Quarter Folder Name Role Phone Bakari Mccall MD Primary Care Provider [phone] Allergies Active Allergy Reactions Criticality Noted Date Comments Prunus Persica Hives 01/11/2021 Medications metoprolol succinate ER (TOPROL-XL) 100 MG 24 hr tablet Take 100 mg by mouth daily. Active Social History Tobacco Use Types Packs/Day Years Used Date Smoking Tobacco: Never Smokeless Tobacco: Never Alcohol Use Standard Drinks/Week Comments Not Currently 0 (1 standard drink = 0.6 oz pur e alcohol) Sex and Gender Information Value Date Recorded Sex Assigned at Not on file Legal Sex Male 5:43 PM CDT Gender Identity Not on file Sexual Orientation Not on file Last Filed Vital Signs Vital Sign Reading Time Taken Comments Blood Pressure 149/90 03/21/2022 9:25 AM CDT Pulse 78 03/21/2022 9:25 AM CDT Temperature 36.8 ??C (98.2 ??F) 03/21/2022 6:29 AM CD T Respiratory Rate 19 03/21/2022 9:25 AM CDT Oxygen Saturation 95% 03/21/2022 9:25 AM CDT Inhaled Oxygen Concentration - - Weight 104.3 kg (230 lb) 03/21/2022 6:29 AM CDT Height 170.2 cm (5' 7 ) 03/21/2022 6:29 AM CDT Body Mass Index 36.02 03/21/2022 6:29 AM CDT Plan of Treatment Health Maintenance Due Date Last Done Comments Annual Physical 1985 Hepatitis C 2000 DTaP, Tdap and Td Vaccines ( 1 - Tdap) 2001 Hepatitis B Vaccines (1 of 3 - 19+ 3-dose series) 2001 COVID-19 Vaccine (2023-2 5 season) 2024 Influenza Adult (#1) 2024 HPV Vaccines Aged Out No longer eligi ble based on patient's age to complete this topic Meningococcal Vaccine Aged Out No michael giuseppe eligible based on patient's age to complete this topic Pneumococcal Vaccine: Pediat rics (0 to 5 Years) and At-Risk Patients (6 to 64 Years) Aged Out No longer eligible b ased on patient's age to complete this topic RSV Immunizations Under 20 Months Aged Out No longer eligible based on patient's age to complete this topic Insurance AETNA Care Teams Quarter Folder Relationship Specialty Start Date End Date Bakari Mccall MD [address] [place] [address] PCP - General FAMILY PRACTICE 01/03/22
--- OUTSIDE RECORDS SUMMARY | 2024-09-19 00:58 | XMS_ITS | Patient Health Summary ---
Author Organization [facility] Address [address] [place] [address] Care Team Providers Care Commercial Litigation Attorney Name Role Phone Max Mccall MD Primary Care Provider [phone] Note [address] [facility],non-owned Affiliates and Associated Physician Practices is amultiple site organization consisting of ambulatory clinics and hospital sitesin [place], [place], [place] and [place]. This disclosure is being madepursuant to the Care Everywhere program and may not contain all information available regarding this patient. Last updated 18.[facility] Allergies * Food(Anaphylaxis) -High Criticality Medications * Be aware that medications may not be up to date on this document. Alwaysverify current medications with the patient. * metoprolol succinate XL 24hr (TOPROL XL) 100 MG tablet(Started 06/23/2021) Take 1 tablet by mouth every morning * omeprazole (PRILOSEC) 40 MG capsule(Started 05/17/2021) Take 1 capsule by mouth every morning * traMADol (ULTRAM) 50 MG tablet(Started 07/10/2021) Take 1 (one) tablet by mouth every 6 hours as needed for Pain Social History Tobacco Use Types Packs/Day Years [...] Comments Blood Pressure 169/100 07/10/2021 10:49 AM GASKET NOTCHER Pulse 89 07/10/2021 10:49 AM GASKET NOTCHER Temperature 36.6 ??C (97.9 ??F) 07/10/2021 10:[address] Respiratory Rate 17 07/10/2021 10:49 AM GASKET NOTCHER Oxygen Saturation 97% 07/10/2021 10:49 AM GASKET NOTCHER Inhaled Oxygen Concentration - - Weight 108 kg (238 lb) 09/14/2021 2:59 PM GASKET NOTCHER Height 170.2 cm (5' 7 ) 09/14/2021 2:59 PM GASKET NOTCHER Body Mass Index 37.28 09/14/2021 2:59 PM GASKET NOTCHER Procedures * GROSS EXAM PATHOLOGY (ILL)(Performed 11/09/2021) Performed for Subacromial impingement of right shoulder * SARS-COV-2 (COVID-19) IN HOUSE(Performed 11/06/2021) Performed for Pre-operative laboratory examination * SARS-COV-2 (COVID-19) PANEL (SOIL)(Performed 11/06/2021) Performed for Pre-operative laboratory examination * MRI SHOULDER RIGHT W CONTRAST(Performed 10/07/2021) Performed for Right shoulder pain, unspecified chronicity * IR FL GUIDE NEEDLE PLACEMENT(Performed 10/07/2021) Performed for Labral tear of shoulder, right, initial encounter * XR SHOULDER RIGHT 2VW OR MORE(Performed 07/10/2021) Performed for Injury of right shoulder, initial encounter Results * GROSS EXAM PATHOLOGY (ILL) (11/09/2021 11:40 AM CDT) Case Report Surgical Pathology Report ? Case: [id number] ? Authorizing Provider: ??Maurizio More MD ?Collected: ? 11/09/2021 11:40 AM ? Ordering Location: ? [facility] ?Received: ?11/09/2021 01:56 PM ? Pathologist: ? King Acosta MD ? Specimen: ?Shavings, Arthroscopy shavings right shoulder ? 11/12/2021 9:34 PM [facility] Final Diagnosis Arthroscopic Shavings, Right Shoulder: - Arthroscopic shavings, right shoulder (gross diagnosis only). - (See comment). Comment: The clinical history of right shoulder subacromial impingement is noted. 11/12/2021 9:34 PM [facility] Clinical History Preoperative Clinical Diagnosis: Right Shoulder Subacromial Impingement Postoperative Clinical Diagnosis: pending Operative Procedure: Right Shoulder Arthroscopy Specimen Submitted: 1) Arthroscopic Shavings, Right Shoulder Special Test Request: Gross Only 11/12/2021 9:34 PM [facility] Gross Description The requisition and specimen(s) are identified with the patient's name, Sean Tracey. Received in formalin, specimen arthroscopy right shoulder , is a white nylon section bag with a 4.0 x 3.0 x 1.0 cm aggregate of yellow-dodge and pink fibrous tissue fragments sections are not submitted. The specimen is for gross examination only. 11/12/2021 9:34 PM [facility] Disclaimer The performance characteristics of all immunohistochemical and indirect immunofluorescence stains (if any) cited in this report were determined by the Histopathology Laboratory of [facility]. Some of these tests were developed by our own laboratory and have not been cleared or approved by the US Food and Drug Administration. The FDA does not require this test to go through premarket FDA review. These tests are used for clinical purposes. They should not be regarded as investigational or for research. This laboratory is certified under the Clinical Laboratory Improvement Amendments (CLIA) as qualified to perform high complexity clinical laboratory testing. This case was interpreted by the [facility] Department of Pathology. When applicable, select reference laboratory testing is performed at the [facility], [address] [place] [id number]. 11/12/2021 9:[address] [facility] Embedded Images 11/12/2021 9:[address] [facility] Pathology/Cytolo gy MISCELLANEOUS SAMPLES / Unknown 11/09/2021 11:40 AM CDT 11/09/2021 1:56 PM CDT Maurizio More MD LAB - PATHOLOGY/CYTO LOGY ORDERABLES Performing Organization Address City/State/[facility] Co de Phone Number [facility] [address] * SARS-COV-2 (COVID-19) INTERNAL (11/06/2021 9:06 AM GASKET NOTCHER) COVID-19 PCR Not detected Not detected 11/07/2021 12:39 PM CDT [facility] Microbiology SPECIMEN FROM NASOPHARYNGEAL STRUCTURE / Unknown Collection / Unknown 11/06/2021 9:06 AM GASKET NOTCHER 11/06/2021 9:06 AM GASKET NOTCHER Narrative [facility] - 11/07/2021 12:39 PM CDT This nucleic acid amplification assay performance was validated by [facility][1] Microbiology Laboratory. This test has been authorized by the Food and Drug administration (FDA)under an Emergency??Use Authorization (EUA). This test has been validated in accordance with the FDA's guidance document Policy for Diagnostic Testing in Laboratories Certified to perform High Complexity Testing under CLIA prior to Emergency Use Authorization for Coronavirus Disease-2019 during the Public Health Emergency issued on October 26, 2019. FDA independent review of this validation is pending. This test is only authorized for the duration of time the declaration that circumstances exist justifying the authorization of emergency use of in vitro diagnostic tests for detection of SARS-CoV-2 virus and/or diagnosis of COVID-19 infection under section 564(b)(1) of the Act, 21 U.S.C 360bbb-3 (b)(1), unless the authorization is terminated or revoked sooner. Fact Sheets for this EUA assay are available upon request. Maurizio More MD LAB - MICROBIOLOGY O RDERABLES [facility] [address] [place], [place] [address], [facility] [phone] * MRI SHOULDER W CONTRAST RIGHT [id number] (10/07/2021 5:21 PM GASKET NOTCHER) Anatomical Region Laterality Modality Upper Extremity Magnetic Resonan ce 10/08/2021 9:56 AM GASKET NOTCHER Impressions 10/08/2021 10:22 AM GASKET NOTCHER 1.Abnormal configuration of the anterior and superior labrum, compatible with mildly displaced tear. Abnormal undercutting of contrast material along the superior and anterior superior labrum with tear suspected from the 11:00-3:00 position. 2.No other evidence of labral tear. No localized fluid collection. 3.The supraspinatus and infraspinatus tendons appear intact without evidence of full-thickness tear. Subscapularis tendon is intact. Long head of the biceps tendon also appears intact and located in the bicipital groove. 4.Moderate degenerative change of the acromioclavicular joint. Mild degenerative change of glenohumeral joint. Mild subchondral cystic change along the greater tuberosity. No evidence of bony contusion or fracture. Visualized musculature has normal signal intensity. Edited by Cassandra Vargas on 10/08/2021 10:11 AM *Reading Radiologist: Guido Dotson on 10/08/2021 at 10:22 AM Narrative 10/08/2021 10:22 AM GASKET NOTCHER MRI SHOULDER RIGHT W CONTRAST DATE: 10/07/2021 5:23 PM HISTORY: Pain. Decreased range of motion. COMPARISON: 07/10/2021 right shoulder radiographs. CONTRAST: 12 mL dilute gadolinium solution injected at arthrogram immediately prior to this examination. Procedure Note Ruben Dotson MD - 10/08/2021 MRI SHOULDER RIGHT W CONTRAST DATE: 10/07/2021 5:23 PM HISTORY: Pain. Decreased range of motion. COMPARISON: 07/10/2021 right shoulder radiographs. CONTRAST: 12 mL dilute gadolinium solution injected at arthrogram immediately prior to this examination. IMPRESSION 1.Abnormal configuration of the anterior and superior labrum, compatible with mildly displaced tear. Abnormal undercutting of contrast material along the superior and anterior superior labrum with tear suspected from the 11:00-3:00 position. 2.No other evidence of labral tear. No localized fluid collection. 3.The supraspinatus and infraspinatus tendons appear intact without evidence of full-thickness tear. Subscapularis tendon is intact. Long head of the biceps tendon also appears intact and located in the bicipital groove. 4.Moderate degenerative change of the acromioclavicular joint. Mild degenerative change of glenohumeral joint. Mild subchondral cystic change along the greater tuberosity. No evidence of bony contusion or fracture. Visualized musculature has normal signal intensity. Edited by Cassandra Vargas on 10/08/2021 10:11 AM *Reading Radiologist: Guido Dotson on 10/08/2021 at 10:22 AM Maurizio More MD MR ORDERABLES * IR GUIDED NEEDLE PLACEMENT [id number] (10/07/2021 3:24 PM GASKET NOTCHER) Anatomical Region Laterality Modality Lung, Abdomen, Chest, Breast X-R ay Angiography 10/07/2021 3:45 PM GASKET NOTCHER Impressions 10/07/2021 3:51 PM GASKET NOTCHER Image-guided diagnostic and therapeutic right glenohumeral joint steroid and MRI contrast injection. Plan: The patient tolerated the procedure well. PROCEDURE SUMMARY: - Right glenohumeral joint injection with fluoroscopic guidance - Additional procedure(s): MRI Arthrography PROCEDURE DETAILS: Pre-procedure Consent: Informed consent for the procedure including risks, benefits and alternatives was obtained and time-out was performed prior to the procedure. Preparation: The site was prepared and draped using maximal sterile barrier technique including cutaneous antisepsis. Anesthesia/sedation Level of anesthesia/sedation: No sedation Anesthesia/sedation administered by: Not applicable Total intra-service sedation time (minutes): Not applicable. Joint injection The patient was positioned supine. Local anesthesia was administered. Under image guidance, a needle was advanced into the joint space, with intra-articular position confirmed with injection of iodinated contrast. Next, steroid injection was performed. Lastly, MRI contrast solution was injected. Needle: 22 gauge Chiba Contrast administered: 1 mL of Isovue 300. 12 mL of MRI contrast solution (14 mL of normal saline+ 4 mL of 1% lidocaine+ 2 mL of 0.5% Sensorcaine+ 0.3 mL of Magnevist) Steroid administered: 80 mg of Depo Medrol Closure The needle was removed and hemostasis was achieved with manual compression. A sterile bandage was applied. Radiation Dose Fluoroscopy time (seconds): 43 Reference air kerma (mGy): 3.02 Additional Details Additional description of procedure: None Equipment details: None Specimens removed: None Estimated blood loss (mL): Less than 10 Standardized report: [email or web address] Attestation Signer name: Hieu Amor MD I attest that I was present for the entire procedure. I reviewed the stored images and agree with the report as written. *Reading Radiologist: Hieu Amor on 10/07/2021 at 3:51 PM Narrative 10/07/2021 3:51 PM GASKET NOTCHER PROCEDURE: Fluoroscopy guided steroid and MRI contrast joint injection Procedural Personnel Attending physician(s): Hieu Amor MD Fellow physician(s): None Resident physician(s): None Advanced practice provider(s): None Pre-procedure diagnosis: Right shoulder arthropathy Post-procedure diagnosis: Same Indication: Pain and injection prior to MR imaging Additional clinical history: None Complications: No immediate complications. Procedure Note Hieu Amor MD - 10/07/2021 PROCEDURE: Fluoroscopy guided steroid and MRI contrast joint injection Procedural Personnel Attending physician(s): Hieu Amor MD Fellow physician(s): None Resident physician(s): None Advanced practice provider(s): None Pre-procedure diagnosis: Right shoulder arthropathy Post-procedure diagnosis: Same Indication: Pain and injection prior to MR imaging Additional clinical history: None Complications: No immediate complications. IMPRESSION Image-guided diagnostic and therapeutic right glenohumeral joint steroid and MRI contrast injection. Plan: The patient tolerated the procedure well. PROCEDURE SUMMARY: - Right glenohumeral joint injection with fluoroscopic guidance - Additional procedure(s): MRI Arthrography PROCEDURE DETAILS: Pre-procedure Consent: Informed consent for the procedure including risks, benefits and alternatives was obtained and time-out was performed prior to the procedure. Preparation: The site was prepared and draped using maximal sterile barrier technique including cutaneous antisepsis. Anesthesia/sedation Level of anesthesia/sedation: No sedation Anesthesia/sedation administered by: Not applicable Total intra-service sedation time (minutes): Not applicable. Joint injection The patient was positioned supine. Local anesthesia was administered. Under image guidance, a needle was advanced into the joint space, with intra-articular position confirmed with injection of iodinated contrast. Next, steroid injection was performed. Lastly, MRI contrast solution was injected. Needle: 22 gauge Chiba Contrast administered: 1 mL of Isovue 300. 12 mL of MRI contrast solution (14 mL of normal saline+ 4 mL of 1% lidocaine+ 2 mL of 0.5% Sensorcaine+ 0.3 mL of Magnevist) Steroid administered: 80 mg of Depo Medrol Closure The needle was removed and hemostasis was achieved with manual compression. A sterile bandage was applied. Radiation Dose Fluoroscopy time (seconds): 43 Reference air kerma (mGy): 3.02 Additional Details Additional description of procedure: None Equipment details: None Specimens removed: None Estimated blood loss (mL): Less than 10 Standardized report: [email or web address] Attestation Signer name: Hieu Amor MD I attest that I was present for the entire procedure. I reviewed the stored images and agree with the report as written. *Reading Radiologist: Hieu Amor on 10/07/2021 at 3:51 PM Maurizio More MD IR ORDERABLES * XR SHOULDER 2+ VW RIGHT (07/10/2021 10:10 AM GASKET NOTCHER) Anatomical Region Laterality Modality Upper Extremity Radiographic Moriah ging 07/10/2021 10:1 8 AM GASKET NOTCHER Impressions 07/10/2021 10:19 AM GASKET NOTCHER 1. No acute fracture or dislocation. *Reading Radiologist: Ashwin Hanks on 07/10/2021 at 10:19 AM Narrative 07/10/2021 10:19 AM GASKET NOTCHER EXAM: XR SHOULDER RIGHT 2VW OR MORE, 3 views DATE: 07/10/2021 HISTORY: Unspecified injury of right shoulder and upper arm, initial encounter. COMPARISON: None. FINDINGS: No acute fracture is noted. The humeral head articulates appropriately with the glenoid. There is mild spurring at the acromio clavicular joint. No lytic or blastic lesions are seen. Limited views of the right chest reveal no acute pulmonary findings. Procedure Note Ashwin Hanks MD - 07/10/2021 EXAM: XR SHOULDER RIGHT 2VW OR MORE, 3 views DATE: 07/10/2021 HISTORY: Unspecified injury of right shoulder and upper arm, initial encounter. COMPARISON: None. FINDINGS: No acute fracture is noted. The humeral head articulates appropriately with the glenoid. There is mild spurring at the acromio clavicular joint. No lytic or blastic lesions are seen. Limited views of the right chest reveal no acute pulmonary findings. IMPRESSION 1. No acute fracture or dislocation. *Reading Radiologist: Ashwin Hanks on 07/10/2021 at 10:19 AM Urszula Matthews MD DIAGNOSTIC IMAGING [facility] Care Teams Commercial Litigation Attorney Relationship Specialty Start Date End Date Max Mccall MD [address] [place] [id number] PCP - General Family Medicine 07/10/21
== END 2024-09-12 07:18 | disposition home or self-care (01) ==
PROVIDERS: PCP Family Medicine; Visit Provider Nurse Practitioner
DX: K31.84 Gastroparesis (principal)
CPT/HCPCS: 78264; A9541

== ENCOUNTER 2024-11-07 20:24 | Emergency (ER) | payer OTHER, SELFPAY ==
--- OUTSIDE RECORDS SUMMARY | 2024-11-07 20:27 | XMS_ITS | Clinical Summary ---
Author Organization [facility] Address [facility] [place] [address] Care Team Providers Care Computer Information Systems Professor Name Role Phone Bakari Mccall MD Primary Care Provider [phone] Allergies Active Allergy Reactions Criticality Noted Date [...] 78 03/21/2022 9:25 AM CDT Temperature 36.8 C (98.2 F) 03/21/2022 6:29 AM CDT Respiratory Rate 19 03/21/2022 9:25 AM CDT [...] patient's age to complete this topic Meningococcal B Vaccine Aged Out No l onger eligible based on patient's age to complete [...] complete this topic Insurance [employer] Care Teams Computer Information Systems Professor Relationship Specialty Start Date End Date Bakari Mccall MD [address] [place] [address] PCP - General FAMILY PRACTICE 01/03/22
--- OUTSIDE RECORDS SUMMARY | 2024-11-07 20:27 | XMS_ITS | Referral Summary ---
Author Organization [facility] Address [address] [place] [address] Care Team Providers Care Door Clamper Name Role Phone Max Mccall MD Primary Care Provider [phone] Source Comments [facility],non-owned Affiliates and Associated Physician Practices is amultiple site organization consisting of ambulatory clinics and hospital sitesin [place], [place], [place] and [place]. This disclosure is being madepursuant to the Care Everywhere program and may not contain all information available regarding this patient. Last updated 18.[facility] Allergies Active Allergy Reactions Criticality Noted Date [...] Comments Blood Pressure 169/100 07/10/2021 10:49 AM ROOFER ASSISTANT Pulse 89 07/10/2021 10:49 AM ROOFER ASSISTANT Temperature 36.6 C (97.9 F) 07/10/2021 10:49 AM ROOFER ASSISTANT Respiratory Rate 17 07/10/2021 10:49 AM ROOFER ASSISTANT Oxygen Saturation 97% 07/10/2021 10:49 AM ROOFER ASSISTANT Inhaled Oxygen Concentration - - Weight 108 kg (238 lb) 09/14/2021 2:59 PM ROOFER ASSISTANT Height 170.2 cm (5' 7 ) 09/14/2021 2:59 PM ROOFER ASSISTANT Body Mass Index 37.28 09/14/2021 2:59 PM ROOFER ASSISTANT Plan of Treatment Not on file Care Teams Door Clamper Relationship Specialty Start Date End Date Max Mccall MD [address] [place] [address] PCP - General Family Medicine 07/10/21
--- OUTSIDE RECORDS SUMMARY | 2024-11-07 20:27 | XMS_ITS | Patient Health Summary ---
Author Organization [facility] Address [address] [place] [address] Care Team Providers Care Vp Scientific Name Role Phone Max Mccall MD Primary Care Provider [phone] Note from [facility],non-owned Affiliates and Associated Physician Practices is amultiple site organization consisting of ambulatory clinics and hospital sitesin [place], [place], [place] and [place]. This disclosure is being madepursuant to the Care Everywhere program and may not contain all information available regarding this patient. Last updated 18.[facility] Allergies * Food(Anaphylaxis) -High Criticality Medications * [...] Comments Blood Pressure 169/100 07/10/2021 10:49 AM SOILS ANALYST Pulse 89 07/10/2021 10:49 AM SOILS ANALYST Temperature 36.6 C (97.9 F) 07/10/2021 10:49 AM SOILS ANALYST Respiratory Rate 17 07/10/2021 10:49 AM SOILS ANALYST Oxygen Saturation 97% 07/10/2021 10:49 AM SOILS ANALYST Inhaled Oxygen Concentration - - Weight 108 kg (238 lb) 09/14/2021 2:59 PM SOILS ANALYST Height 170.2 cm (5' 7 ) 09/14/2021 2:59 PM SOILS ANALYST Body Mass Index 37.28 09/14/2021 2:59 PM SOILS ANALYST Procedures * GROSS EXAM PATHOLOGY (ILL)(Performed 11/09/2021) [...] AM CDT) Case Report Surgical Pathology Report Case: [id number] Authorizing Provider: Maurizio More MD Collected: 11/09/2021 11:40 AM Ordering Location: [facility] Received: 11/09/2021 01:56 PM Pathologist: King Acosta MD Specimen: Shavings, Arthroscopy shavings right shoulder 11/12/2021 9:34 PM CDT [facility] Final Diagnosis Arthroscopic Shavings, Right Shoulder: - Arthroscopic shavings, right shoulder (gross diagnosis only). - (See comment). Comment: The clinical history of right shoulder subacromial impingement is noted. 11/12/2021 9:34 PM CDT [facility] Clinical History Preoperative Clinical Diagnosis: Right Shoulder Subacromial Impingement Postoperative Clinical Diagnosis: pending Operative Procedure: Right Shoulder Arthroscopy Specimen Submitted: 1) Arthroscopic Shavings, Right Shoulder Special Test Request: Gross Only 11/12/2021 9:34 PM T [facility] Gross Description The requisition and specimen(s) are identified with the patient's name, Sean Tracey. Received in formalin, specimen arthroscopy right shoulder , is a white nylon section bag with a 4.0 x 3.0 x 1.0 cm aggregate of yellow-dodge and pink fibrous tissue fragments sections are not submitted. The specimen is for gross examination only. 11/12/2021 9:34 PM CDT [facility] Disclaimer The performance characteristics of all immunohistochemical and indirect immunofluorescence stains (if any) cited in this report were determined by the Histopathology Laboratory of [facility]. Some of these tests were developed by [...] testing. This case was interpreted by the [facility] Department of Pathology. When applicable, select reference laboratory testing is performed at the [facility] Pathology Independent [facility], [address] [place] [address]. 11/12/2021 9:34 PM CDT [facility] Embedded Images 11/12/2021 9:34 PM CDT [facility] Pathology/Cytolo gy MISCELLANEOUS SAMPLES / Unknown 11/09/2021 11:40 AM CDT 11/09/2021 1:56 PM CDT Maurizio More MD LAB - PATHOLOGY/CYTO LOGY ORDERABLES [facility] [address] [place], [place] [id number] [place] [address] * SARS-COV-2 (COVID-19) INTERNAL (11/06/2021 9:06 AM SOILS ANALYST) COVID-19 PCR Not detected Not detected 11/07/2021 12:[address] [facility] Microbiology SPECIMEN FROM NASOPHARYNGEAL STRUCTURE / Unknown Collection / Unknown 11/06/2021 9:06 AM SOILS ANALYST 11/06/2021 9:06 AM SOILS ANALYST Narrative [facility] - 11/07/2021 12:39 PM CDT This nucleic acid amplification assay performance was validated by [facility]. This test has been authorized by the Food and Drug administration (FDA)under an Emergency Use Authorization (EUA). This test has been validated [...] More MD LAB - MICROBIOLOGY O RDERABLES [facility] [address] [place] [address], [facility] [phone] * MRI SHOULDER W CONTRAST RIGHT [id number] (10/07/2021 5:21 PM SOILS ANALYST) Anatomical Region Laterality Modality Upper Extremity Magnetic Resonan ce 10/08/2021 9:56 AM SOILS ANALYST Impressions 10/08/2021 10:22 AM SOILS ANALYST 1.Abnormal configuration of the anterior and superior [...] on 10/08/2021 10:11 AM *Reading Radiologist: Guido oDtson on 10/08/2021 at 10:22 AM Narrative 10/08/2021 10:22 AM SOILS ANALYST MRI SHOULDER RIGHT W CONTRAST DATE: 10/07/2021 [...] MR ORDERABLES * IR GUIDED NEEDLE PLACEMENT [id number] (10/07/2021 3:24 PM SOILS ANALYST) Anatomical Region Laterality Modality Lung, Abdomen, Chest, Breast X-R ay Angiography 10/07/2021 3:45 PM SOILS ANALYST Impressions 10/07/2021 3:51 PM SOILS ANALYST Image-guided diagnostic and therapeutic right glenohumeral joint [...] at 3:51 PM Narrative 10/07/2021 3:51 PM SOILS ANALYST PROCEDURE: Fluoroscopy guided steroid and MRI contrast [...] SHOULDER 2+ VW RIGHT (07/10/2021 10:10 AM SOILS ANALYST) Anatomical Region Laterality Modality Upper Extremity Radiographic Moriah ging 07/10/2021 10:1 8 AM SOILS ANALYST Impressions 07/10/2021 10:19 AM SOILS ANALYST 1. No acute fracture or dislocation. *Reading Radiologist: Ashwin Hanks on 07/10/2021 at 10:19 AM Narrative 07/10/2021 10:19 AM SOILS ANALYST EXAM: XR SHOULDER RIGHT 2VW OR MORE, [...] AM Urszula Matthews MD DIAGNOSTIC IMAGING O [facility] Care Teams Vp Scientific Relationship Specialty Start Date End Date Max Mccall MD [address] [place], [place] [id number] PCP - General Family Medicine 07/10/21
--- OUTSIDE RECORDS SUMMARY | 2024-11-07 20:27 | XMS_ITS | Clinical Summary ---
Author Organization [facility] [employer] Address [address] [place] [address] Care Team Providers Care Brusher Warp Name Role Phone Max Mccall MD Primary Care Provider [phone] Source Comments [facility] [employer]non-owned Affiliates and Associated Physician Practices is amultiple site organization consisting of ambulatory clinics and hospital sitesin [place], [place], [place] and [place]. This disclosure is being madepursuant to the Care Everywhere program and may not contain all information available regarding this patient. Last updated 18.[facility] [employer] Allergies Active Allergy Reactions Criticality Noted Date [...] Comments Blood Pressure 169/100 07/10/2021 10:49 AM FX ARTIST Pulse 89 07/10/2021 10:49 AM FX ARTIST Temperature 36.6 C (97.9 F) 07/10/2021 10:49 AM FX ARTIST Respiratory Rate 17 07/10/2021 10:49 AM FX ARTIST Oxygen Saturation 97% 07/10/2021 10:49 AM FX ARTIST Inhaled Oxygen Concentration - - Weight 108 kg (238 lb) 09/14/2021 2:59 PM FX ARTIST Height 170.2 cm (5' 7 ) 09/14/2021 2:59 PM FX ARTIST Body Mass Index 37.28 09/14/2021 2:59 PM FX ARTIST Plan of Treatment Health Maintenance Due Date [...] to complete this topic MENINGOCOCCAL (Group B) VACC INE SHARED DECISION-MAKING Aged Out No longer eligibl e based on patient's age to complete this topic MENINGOCOCCAL GROUPS A/C/Y/W VACCINE Aged Out No longer eligible b ased on patient's age to complete this topic PNEUMOCOCCAL VACCINE Aged Out No long er eligible based on patient's age to complete this topic Care Teams Brusher Warp Relationship Specialty Start Date End Date Max Mccall MD [address] [place] [address] PCP - General Family Medicine 07/10/21
[2024-11-07 20:28] VITALS: BP 141/79; PULSE 96; RESP 18; TEMP 36.8; O2SAT 97
--- NOTE | 2024-11-07 22:41 | PC.NURSE ---
Patient noted to not be in waiting room. Patient and child also gone
--- OUTSIDE RECORDS SUMMARY | 2024-11-07 22:52 | XMS_ITS | Clinical Summary ---
Author Organization [facility] Address [facility] [place] [address] Care Team Providers Care Modeling And Simulation Analyst Name Role Phone Bakari Mccall MD Primary Care Provider [phone] Allergies Active Allergy Reactions Criticality Noted Date [...] complete this topic Insurance A[employer] Care Teams Modeling And Simulation Analyst Relationship Specialty Start Date End Date Bakari Mccall MD [address] [place] [address] PCP - General FAMILY PRACTICE 01/03/22
--- OUTSIDE RECORDS SUMMARY | 2024-11-07 22:52 | XMS_ITS | Clinical Summary ---
Author Organization [facility] [employer] Address [address] [place] [address] Care Team Providers Care Body Work Auto Trimmer Name Role Phone Max Mccall MD Primary Care Provider [phone] Source Comments [facility] [employer],non-owned Affiliates and Associated Physician Practices is amultiple site organization consisting of ambulatory clinics and hospital sitesin [place], [place], [place] and [place]. This disclosure is being madepursuant to the Care Everywhere program and may not contain all information available regarding this patient. Last updated 18.[facility] [employer] Allergies Active Allergy Reactions Criticality Noted Date [...] Comments Blood Pressure 169/100 07/10/2021 10:49 AM AGRICULTURAL PLOW OPERATOR Pulse 89 07/10/2021 10:49 AM AGRICULTURAL PLOW OPERATOR Temperature 36.6 C (97.9 F) 07/10/2021 10:49 AM AGRICULTURAL PLOW OPERATOR Respiratory Rate 17 07/10/2021 10:49 AM AGRICULTURAL PLOW OPERATOR Oxygen Saturation 97% 07/10/2021 10:49 AM AGRICULTURAL PLOW OPERATOR Inhaled Oxygen Concentration - - Weight 108 kg (238 lb) 09/14/2021 2:59 PM AGRICULTURAL PLOW OPERATOR Height 170.2 cm (5' 7 ) 09/14/2021 2:59 PM AGRICULTURAL PLOW OPERATOR Body Mass Index 37.28 09/14/2021 2:59 PM AGRICULTURAL PLOW OPERATOR Plan of Treatment Health Maintenance Due Date [...] age to complete this topic Care Teams Body Work Auto Trimmer Relationship Specialty Start Date End Date Max Mccall MD [address] [place] [address] PCP - General Family Medicine 07/10/21
--- OUTSIDE RECORDS SUMMARY | 2024-11-07 22:52 | XMS_ITS | Patient Health Summary ---
Author Organization [facility] Address [address] [place] [place] [address] Care Team Providers Care Call Manager Name Role Phone Max Mccall MD Primary Care Provider [phone] Note from [facility],non-owned Affiliates and Associated Physician Practices is amultiple site organization consisting of ambulatory clinics and hospital sitesin [place], [place], [place] and [place]. This disclosure is being madepursuant to the Care Everywhere program and may not contain all information available regarding this patient. Last updated 18.[facility] Allergies * Food(Anaphylaxis) -High Criticality Medications * [...] Comments Blood Pressure 169/100 07/10/2021 10:49 AM OYSTER OPENER Pulse 89 07/10/2021 10:49 AM OYSTER OPENER Temperature 36.6 C (97.9 F) 07/10/2021 10:49 AM OYSTER OPENER Respiratory Rate 17 07/10/2021 10:49 AM OYSTER OPENER Oxygen Saturation 97% 07/10/2021 10:49 AM OYSTER OPENER Inhaled Oxygen Concentration - - Weight 108 kg (238 lb) 09/14/2021 2:59 PM OYSTER OPENER Height 170.2 cm (5' 7 ) 09/14/2021 2:59 PM OYSTER OPENER Body Mass Index 37.28 09/14/2021 2:59 PM OYSTER OPENER Procedures * GROSS EXAM PATHOLOGY (ILL)(Performed 11/09/2021) [...] CDT) Case Report Surgical Pathology Report Case: [id number] Authorizing Provider: Maurizio More MD Collected: 11/09/2021 11:40 AM Ordering Location: [facility] Received: 11/09/2021 01:56 PM Pathologist: King Acosta MD Specimen: Shavings, Arthroscopy shavings right shoulder 11/12/2021 9:34 PM CDT [facility] Final Diagnosis Arthroscopic Shavings, Right Shoulder: - Arthroscopic shavings, right shoulder (gross diagnosis only). - (See comment). Comment: The clinical history of right shoulder subacromial impingement is noted. 11/12/2021 9:34 PM CDT [facility] Clinical History Preoperative Clinical Diagnosis: Right Shoulder Subacromial Impingement Postoperative Clinical Diagnosis: pending Operative Procedure: Right Shoulder Arthroscopy Specimen Submitted: 1) Arthroscopic Shavings, Right Shoulder Special Test Request: Gross Only 11/12/2021 9:34 PM T [facility] Gross Description The requisition and specimen(s) are identified with the patient's name, Sean Tracey. Received in formalin, specimen arthroscopy right shoulder , is a white nylon section bag with a 4.0 x 3.0 x 1.0 cm aggregate of yellow-dodge and pink fibrous tissue fragments sections are not submitted. The specimen is for gross examination only. 11/12/2021 9:34 PM CDT [facility] Disclaimer The performance characteristics of all immunohistochemical and indirect immunofluorescence stains (if any) cited in this report were determined by the Histopathology Laboratory of [facility]. Some of these tests were developed [...] testing. This case was interpreted by the [facility] Department of Pathology. When applicable, select reference laboratory testing is performed at the [facility] Pathology Independent [facility], [address] [place] [id number]. 11/12/2021 9:34 PM CDT [facility] Embedded Images 11/12/2021 9:34 PM CDT [facility] Pathology/Cytolo gy MISCELLANEOUS SAMPLES / Unknown 11/09/2021 11:40 AM CDT 11/09/2021 1:56 PM CDT Maurizio More MD LAB - PATHOLOGY/CYTO LOGY ORDERABLES [facility] [address] [place], [place] [id number] [place] [address] * SARS-COV-2 (COVID-19) INTERNAL (11/06/2021 9:06 AM OYSTER OPENER) COVID-19 PCR Not detected Not detected 11/07/2021 12:39 PM CDT [facility] Microbiology SPECIMEN FROM NASOPHARYNGEAL STRUCTURE / Unknown Collection / Unknown 11/06/2021 9:06 AM OYSTER OPENER 11/06/2021 9:06 AM OYSTER OPENER Narrative [facility] - 11/07/2021 12:39 PM CDT This nucleic acid amplification assay performance was validated by [facility]. This test has been authorized [...] EUA assay are available upon request. Maurizio Moer MD LAB - MICROBIOLOGY O RDERABLES [facility] [address] [place] [address], [facility] [phone] * MRI SHOULDER W CONTRAST RIGHT [id number] (10/07/2021 5:21 PM OYSTER OPENER) Anatomical Region Laterality Modality Upper Extremity Magnetic Resonan ce 10/08/2021 9:56 AM OYSTER OPENER Impressions 10/08/2021 10:22 AM OYSTER OPENER 1.Abnormal configuration of the anterior and superior [...] at 10:22 AM Narrative 10/08/2021 10:22 AM OYSTER OPENER MRI SHOULDER RIGHT W CONTRAST DATE: 10/07/2021 [...] MR ORDERABLES * IR GUIDED NEEDLE PLACEMENT [id number] (10/07/2021 3:24 PM OYSTER OPENER) Anatomical Region Laterality Modality Lung, Abdomen, Chest, Breast X-R ay Angiography 10/07/2021 3:45 PM OYSTER OPENER Impressions 10/07/2021 3:51 PM OYSTER OPENER Image-guided diagnostic and therapeutic right glenohumeral joint [...] at 3:51 PM Narrative 10/07/2021 3:51 PM OYSTER OPENER PROCEDURE: Fluoroscopy guided steroid and MRI contrast [...] SHOULDER 2+ VW RIGHT (07/10/2021 10:10 AM OYSTER OPENER) Anatomical Region Laterality Modality Upper Extremity Radiographic Moriah ging 07/10/2021 10:1 8 AM OYSTER OPENER Impressions 07/10/2021 10:19 AM OYSTER OPENER 1. No acute fracture or dislocation. *Reading Radiologist: Ashwin Hanks on 07/10/2021 at 10:19 AM Narrative 07/10/2021 10:19 AM OYSTER OPENER EXAM: XR SHOULDER RIGHT 2VW OR MORE, [...] AM Urszula Matthews MD DIAGNOSTIC IMAGING O [facility] Care Teams Call Manager Relationship Specialty Start Date End Date Max Mccall MD [address] [place], [place] [id number] PCP - General Family Medicine 07/10/21
--- OUTSIDE RECORDS SUMMARY | 2024-11-07 22:52 | XMS_ITS | Referral Summary ---
Author Organization [facility] [employer] Address [address] [place] [address] Care Team Providers Care Automation Consultant Name Role Phone Max Mccall MD Primary Care Provider [phone] Source Comments [facility],non-owned Affiliates and Associated Physician Practices is amultiple site organization consisting of ambulatory clinics and hospital sitesin [place], [place], [place] and [place]. This disclosure is being madepursuant to the Care Everywhere program and may not contain all information available regarding this patient. Last updated 18.[facility] [employer] Allergies Active Allergy Reactions Criticality Noted Date [...] Comments Blood Pressure 169/100 07/10/2021 10:49 AM MUSIC AUTOGRAPHER Pulse 89 07/10/2021 10:49 AM MUSIC AUTOGRAPHER Temperature 36.6 C (97.9 F) 07/10/2021 10:49 AM MUSIC AUTOGRAPHER Respiratory Rate 17 07/10/2021 10:49 AM MUSIC AUTOGRAPHER Oxygen Saturation 97% 07/10/2021 10:49 AM MUSIC AUTOGRAPHER Inhaled Oxygen Concentration - - Weight 108 kg (238 lb) 09/14/2021 2:59 PM MUSIC AUTOGRAPHER Height 170.2 cm (5' 7 ) 09/14/2021 2:59 PM MUSIC AUTOGRAPHER Body Mass Index 37.28 09/14/2021 2:59 PM MUSIC AUTOGRAPHER Plan of Treatment Not on file Insurance Payer Benefit Plan / Group Subscriber ID Effective Dates Phone Address Type WC PAYOR GENERIC WC GENERIC [id number] 2021-Pre sent [id number] [address] [address] [place] [address] Worker's Comp AETNA AETNA PPO/POS/OA [id number] 2019-Prese nt [address] [place] [address] PPO SELF PAY NO INSURANCE SELF PAY NO INSURANCE Effective for all dates [place], [place] Self Pay AETNA AETNA PPO/POS/OA [id number] 2019-Pres ent [address] [place] [address] PPO Care Teams Automation Consultant Relationship Specialty Start Date End Date Max Mccall MD [address] [place] [address] PCP - General Family Medicine 07/10/21
== END 2024-11-07 22:41 | disposition left against medical advice (07) ==
PROVIDERS: PCP Family Medicine
DX: M54.6 Pain in thoracic spine (principal)
CPT/HCPCS: 99199

== ENCOUNTER 2024-11-12 00:24 | Day surgery (SDC) | payer OTHER, SELFPAY ==
[2024-11-05 10:12] VITALS: BMI 37.6
--- OUTSIDE RECORDS SUMMARY | 2024-11-12 00:28 | XMS_ITS | Clinical Summary ---
Author Organization [facility] Address [facility] [place] [address] Care Team Providers Care Writer Editor Name Role Phone Bakari Mccall MD Primary Care Provider [phone] Allergies Active Allergy Reactions Criticality Noted Date [...] complete this topic Insurance AETNA Care Teams Writer Editor Relationship Specialty Start Date End Date Bakari Mccall MD [address] [place] [address] PCP - General FAMILY PRACTICE 01/03/22
--- OUTSIDE RECORDS SUMMARY | 2024-11-12 00:28 | XMS_ITS | Clinical Summary ---
Author Organization [facility] [employer] Address [address] [place] [address] Care Team Providers Care Charger Name Role Phone Max Mccall MD Primary Care Provider [phone] Source Comments [facility] [employer],non-owned Affiliates and Associated Physician Practices is amultiple site organization consisting of ambulatory clinics and hospital sitesin [place], [place], [place] and [place]. This disclosure is being madepursuant to the Care Everywhere program and may not contain all information available regarding this patient. Last updated 18.[facility] [employer] Allergies Active Allergy Reactions Criticality Noted Date [...] Comments Blood Pressure 169/100 07/10/2021 10:49 AM TUMBLERS SUPERVISOR Pulse 89 07/10/2021 10:49 AM TUMBLERS SUPERVISOR Temperature 36.6 C (97.9 F) 07/10/2021 10:49 AM TUMBLERS SUPERVISOR Respiratory Rate 17 07/10/2021 10:49 AM TUMBLERS SUPERVISOR Oxygen Saturation 97% 07/10/2021 10:49 AM TUMBLERS SUPERVISOR Inhaled Oxygen Concentration - - Weight 108 kg (238 lb) 09/14/2021 2:59 PM TUMBLERS SUPERVISOR Height 170.2 cm (5' 7 ) 09/14/2021 2:59 PM TUMBLERS SUPERVISOR Body Mass Index 37.28 09/14/2021 2:59 PM TUMBLERS SUPERVISOR Plan of Treatment Health Maintenance Due Date [...] age to complete this topic Care Teams Charger Relationship Specialty Start Date End Date Max Mccall MD [address] [place] [address] PCP - General Family Medicine 07/10/21
--- OUTSIDE RECORDS SUMMARY | 2024-11-12 00:28 | XMS_ITS | Referral Summary ---
Author Organization [facility] [employer] Address [address] [facility] [place] [address] Care Team Providers Care Glass Edger Name Role Phone Max Mccall MD Primary Care Provider [phone] Source Comments [facility],non-owned Affiliates and Associated Physician Practices is amultiple site organization consisting of ambulatory clinics and hospital sitesin [place], [place], [place] and [place]. This disclosure is being madepursuant to the Care Everywhere program and may not contain all information available regarding this patient. Last updated 18.[facility] [employer] Allergies Active Allergy Reactions Criticality Noted Date [...] Comments Blood Pressure 169/100 07/10/2021 10:49 AM SEWING MACHINE OPERATOR PLASTIC ZIPPER Pulse 89 07/10/2021 10:49 AM SEWING MACHINE OPERATOR PLASTIC ZIPPER Temperature 36.6 C (97.9 F) 07/10/2021 10:49 AM SEWING MACHINE OPERATOR PLASTIC ZIPPER Respiratory Rate 17 07/10/2021 10:49 AM SEWING MACHINE OPERATOR PLASTIC ZIPPER Oxygen Saturation 97% 07/10/2021 10:49 AM SEWING MACHINE OPERATOR PLASTIC ZIPPER Inhaled Oxygen Concentration - - Weight 108 kg (238 lb) 09/14/2021 2:59 PM SEWING MACHINE OPERATOR PLASTIC ZIPPER Height 170.2 cm (5' 7 ) 09/14/2021 2:59 PM SEWING MACHINE OPERATOR PLASTIC ZIPPER Body Mass Index 37.28 09/14/2021 2:59 PM SEWING MACHINE OPERATOR PLASTIC ZIPPER Plan of Treatment Not on file Care Teams Glass Edger Relationship Specialty Start Date End Date Max Mccall MD [address] [place] [address] PCP - General Family Medicine 07/10/21
--- OUTSIDE RECORDS SUMMARY | 2024-11-12 00:28 | XMS_ITS | Patient Health Summary ---
Author Organization [facility] Address [address] [address] Care Team Providers Care Hospitality Associate Name Role Phone Max Mccall MD Primary Care Provider [phone] Note from [facility],non-owned Affiliates and Associated Physician Practices is amultiple site organization consisting of ambulatory clinics and hospital sitesin [place], [place], [place] and [place]. This disclosure is being madepursuant to the Care Everywhere program and may not contain all information available regarding this patient. Last updated 18.[facility] Allergies * Food(Anaphylaxis) -High Criticality [...] Comments Blood Pressure 169/100 07/10/2021 10:49 AM [employer]INE [employer] Pulse 89 07/10/2021 10:49 AM [employer]INE ELECT[employer]IAN Temperature 36.6 C (97.9 F) 07/10/2021 10:49 AM [employer]INE ELECT[employer]IAN Respiratory Rate 17 07/10/2021 10:49 AM [employer]INE ELECTRICIAN Oxygen Saturation 97% 07/10/2021 10:49 AM [employer]INE ELECT[employer]ICIAN Inhaled Oxygen Concentration - - Weight 108 kg (238 lb) 09/14/2021 2:59 PM [employer]INE E[employer]IAN Height 170.2 cm (5' 7 ) 09/14/2021 2:59 PM [employer]IAN Body Mass Index 37.28 09/14/2021 2:59 PM [employer]IAN Procedures * GROSS EXAM PATHOLOGY (ILL)(Performed 11/09/2021) [...] CDT) Case Report Surgical Pathology Report Case: [id number] Authorizing Provider: Maurizio More MD Collected: 11/09/2021 11:40 AM Ordering Location: [facility] Received: 11/09/2021 01:56 PM Pathologist: King Acosta MD Specimen: Shavings, Arthroscopy shavings right shoulder 11/12/2021 9:34 PM CDT [facility] Final Diagnosis Arthroscopic Shavings, Right Shoulder: - Arthroscopic shavings, right shoulder (gross diagnosis only). - (See comment). Comment: The clinical history of right shoulder subacromial impingement is noted. 11/12/2021 9:34 PM CDT [facility] Clinical History Preoperative Clinical Diagnosis: Right Shoulder Subacromial Impingement Postoperative Clinical Diagnosis: pending Operative Procedure: Right Shoulder Arthroscopy Specimen Submitted: 1) Arthroscopic Shavings, Right Shoulder Special Test Request: Gross Only 11/12/2021 9:34 PM T [facility] Gross Description The requisition and specimen(s) are identified with the patient's name, Sean Tracey. Received in formalin, specimen arthroscopy right shoulder , is a white nylon section bag with a 4.0 x 3.0 x 1.0 cm aggregate of yellow-dodge and pink fibrous tissue fragments sections are not submitted. The specimen is for gross examination only. 11/12/2021 9:34 PM CDT [facility] Disclaimer The performance characteristics of all immunohistochemical and indirect immunofluorescence stains (if any) cited in this report were determined by the Histopathology Laboratory of [facility]. Some of these tests were developed by [...] testing. This case was interpreted by the [facility] Department of Pathology. When applicable, select reference laboratory testing is performed at the [facility] Pathology [facility], [address] [place] [id number]. 11/12/2021 9:34 PM CDT [facility] Embedded Images 11/12/2021 9:34 PM CDT [facility] Pathology/Cytolo gy MISCELLANEOUS SAMPLES / Unknown 11/09/2021 11:40 AM CDT 11/09/2021 1:56 PM CDT Maurizio More MD LAB - PATHOLOGY/CYTO LOGY ORDERABLES [facility] [address] [place], [place] [id number] [place] [address] * SARS-COV-2 (COVID-19) INTERNAL (11/06/2021 9:06 AM [employer]INE [employer]) COVID-19 PCR Not detected Not detected 11/07/2021 12:39 PM CDT [facility] Microbiology SPECIMEN FROM NASOPHARYNGEAL STRUCTURE / Unknown Collection / Unknown 11/06/2021 9:06 AM [employer] E[employer]IAN 11/06/2021 9:06 AM [employer]INE ELECT[employer]ICIAN Narrative [facility] - 11/07/2021 12:39 PM CDT This nucleic acid amplification assay performance was validated by [facility]. This test has been authorized [...] More MD LAB - MICROBIOLOGY O RDERABLES [facility] [address] [place] [address], [facility] [[email or web address]] [phone] * MRI SHOULDER W CONTRAST RIGHT [id number] (10/07/2021 5:21 PM [employer]INE [employer]IAN) Anatomical Region Laterality Modality Upper Extremity Magnetic Resonan ce 10/08/2021 9:56 AM [employer]INE ELECT[employer]ICIAN Impressions 10/08/2021 10:22 AM [employer]INE ELECT[employer]ICIAN 1.Abnormal configuration of the anterior and superior [...] at 10:22 AM Narrative 10/08/2021 10:22 AM [employer]INE ELECT[employer]IAN MRI SHOULDER RIGHT W CONTRAST DATE: 10/07/2021 [...] MR ORDERABLES * IR GUIDED NEEDLE PLACEMENT [id number] (10/07/2021 3:24 PM [employer]INE ELECT[employer]ICIAN) Anatomical Region Laterality Modality Lung, Abdomen, Chest, Breast X-R ay Angiography 10/07/2021 3:45 PM [employer] E[employer] Impressions 10/07/2021 3:51 PM [employer] E[employer] Image-guided diagnostic and therapeutic right glenohumeral joint [...] at 3:51 PM Narrative 10/07/2021 3:51 PM [employer]INE [employer] PROCEDURE: Fluoroscopy guided steroid and MRI contrast [...] SHOULDER 2+ VW RIGHT (07/10/2021 10:10 AM MARINE ELECTRICIAN) Anatomical Region Laterality Modality Upper Extremity Radiographic Moriah ging 07/10/2021 10:1 8 AM MARINE ELECTRICIAN Impressions 07/10/2021 10:19 AM [employer]INE ELECTRICIAN 1. No acute fracture or dislocation. *Reading Radiologist: Ashwin Hanks on 07/10/2021 at 10:19 AM Narrative 07/10/2021 10:19 AM MARINE ELECTRICIAN EXAM: XR SHOULDER RIGHT 2VW OR MORE, [...] AM Urszula Matthews MD DIAGNOSTIC IMAGING O [facility] Care Teams Hospitality Associate Relationship Specialty Start Date End Date Max Mccall MD [address] [place], [place] [id number] PCP - General Family Medicine 07/10/21
[2024-11-12 11:16] VITALS: BP 149/88; PULSE 94; RESP 18; TEMP 36.8; O2SAT 98
[2024-11-12] MEDS: LACTATED RINGERS 1,000 ML 150 ML IV CONT (11:25)
--- NOTE | 2024-11-12 11:40 | WPDANESEPPF ---
Anes - Initial Pre Proc Eval Procedure: Operation Date: 11/12/24 12:30 Proposed Procedures p Colonoscopy - Reuben Sabillon MD Date/Time: 11/12/24 11:40 Surgeon: Reuben Sabillon MD Pre Op Diagnosis: hx of colon polyps Patient Data Age: 43 Gender: M Height: 1.7 m Weight: 107.6 kg Last Vital Signs Temp 36.8 C 11/12/24 11:16 Pulse 94 11/12/24 11:16 Resp 18 11/12/24 11:16 BP 149/88 H 11/12/24 11:16 Pulse Ox 98 11/12/24 11:16 O2 Del Method Room Air 11/12/24 11:16 Allergies Allergy/AdvReac Type Severity Reaction Status Date / Time peach Allergy Severe Swelling/HIVES/SEE Verified 11/07/24 20:25 COMMENT metoprolol AdvReac Severe bradycardia Verified 11/07/24 20:25 Home Medications ?Medication ?Instructions ?Recorded ?Confirmed ?Type multivitamin (Daily Multi-Vitamin 1 tablet PO DAILY 10/22/20 11/12/24 History tablet) Autopap #1 ea 09/09/22 09/24/24 Rx topiramate 50 mg tablet (Topamax) 50 mg PO BID #180 tabs 03/19/24 11/12/24 Rx amlodipine 5 mg tablet 5 mg PO DAILY #90 tabs 04/05/24 11/12/24 Rx losartan 50 mg tablet 50 mg PO DAILY #90 tabs 04/05/24 11/12/24 Rx atorvastatin 10 mg tablet 10 mg PO DAILY #90 tabs 09/09/24 11/12/24 Rx metoclopramide HCl 10 mg tablet 10 mg PO .AM and HS #60 tabs 11/05/24 11/12/24 Rx (Reglan) omeprazole 40 mg capsule,delayed 40 mg PO DAILY #30 caps 11/05/24 11/12/24 Rx release Patient hx anesthesia problems: other (slow to awaken) Family hx anesthesia problems: none Results Review: All pre-operative results and documents have been reviewed as part of the pre-operative evaluation. [facility] Past Medical History Medical History Left shoulder pain Hepatic steatosis ct 06.14.24 Frozen shoulder Dizziness Left ear hearing loss mild high frequency loss bilat Obstructive sleep apnea 2021 home sleep study: moderate obstructive sleep apnea 78%, loud frequent snoring? Recommendation: auto PAP with pressures between 5 cm and 16 cm with a comfortable mask and heated humidity.?He should also have all related equipment including tubing, filters and reservoir.? Follow up in 30-90 days. If not tolerating or not improving then will need cpap titration. ?? Hypersomnia Snoring Peptic ulcer Gastroesophageal reflux disease Chest pain senior care use of drug Essential hypertension Frequent headaches : MRI brain, cervical, and thoracic spine as well as lumbar puncture with CSF studies all of which were negative, except he was positive for oligoclonal bands (in serum and CSF) and had elevated protein 90. He had been following with Dr. Billingsley and had an EMG/NCS which showed left ulnar neuropathy. Hemifacial spasm of right side of face Hematemesis Chest pain Obesity Mixed hyperlipidemia Surgical History Surgical History History of arthroscopy of right shoulder History of colonoscopy with polypectomy Family History Family History Grandparent Diabetes mellitus Carcinoma of colon Father Hypertension Baltazar syndrome Mother Family history of malignant neoplasm of breast in first degree relative Hypertension Other Colon polyp Social History Social History Social History: Surrogate medical decision maker: Shantel Tracey, spouse. Code status: Smoking packs per day: 0.25 Smoking cigarettes per day: 5.0 Years smoked: 2 Smoking pack-years: 0.50 Smoking status: Never smoker Tobacco type: cigarettes Second hand tobacco smoke exposure: No Alcohol intake: current Alcohol use details: Rarely Substance use: never Substance use type: does not use Do You Feel Safe in your Home?: Yes Lack of Transportation: No Lack of Food: Never True Current Housing: I Have Housing Concerned About Future Housing: No Difficulty Paying Gas/Electric Bills: No Difficulty Paying for Meds: No Currently Unemployed: No Education: High School Diploma/GED Difficulty w/ Childcare or Family Care: No Living arrangements: alone Additional living arrangements comments: The patient lives with his and 2 children. 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 Spiritual care concerns: No Anes - Eval Final PreProcedure Day of Procedure 11/12/24 11:40 Patient weight: obese Heart: regular rate and rhythm Lungs: clear to auscultation Airway: Mallampati scale class II Neurological: alert and oriented Last oral intake: >/= 8 hours ASA classification: III Emergent: no Anesthetic plan: proceed Anesthesia type and monitoring: general GIVS and standard monitoring Results Review: All pre-operative results and documents have been reviewed as part of the pre-operative evaluation. Informed Consent: The patient's anesthetic plan and its attendant risks and benefits were discussed with the patient/family/POA. Questions were solicited and answers provided to the satisfaction of the patient/family/POA.
--- NOTE | 2024-11-12 11:53 | WPDHPUPDATE1 ---
History and Physical Update Update Date/Time: 11/12/24 11:53 History and Physical has been reviewed, including an updated exam of the patient. There are NO changes in the patient's condition. Risks, benefits, and alternatives have been discussed and questions answered. Patient agrees to proceed with procedure.
[2024-11-12 11:54] VITALS: BP 105/70; PULSE 87; RESP 14; O2SAT 95
[2024-11-12 12:04] VITALS: BP 123/81; PULSE 85; RESP 18; O2SAT 98
[2024-11-12 12:14] VITALS: BP 111/80; PULSE 77; RESP 21; O2SAT 100
== END 2024-11-12 12:48 | disposition home or self-care (01) ==
PROVIDERS: PCP Family Medicine; Referring Provider Nurse Practitioner; Visit Provider Internal Medicine Gastroenterology
PROC: 0DJD8ZZ Inspection of Lower Intestinal Tract, Via Natural or Artificial Opening Endoscopic (ICD-10-PCS; CPT 45378; principal; 2024-11-12 12:30)
DX: Z12.11 Encounter for screening for malignant neoplasm of colon (principal); Z86.0100 Personal history of colon polyps, unspecified; E66.9 Obesity, unspecified; Z68.37 Body mass index [BMI] 37.0-37.9, adult
CPT/HCPCS: 45378; J2704; J7120